=== PATIENT | male | born 1980 | race Caucasian/White ===

== ENCOUNTER 2016-06-27 05:29 | Emergency (ER) | payer OTHER, MEDICARE ==
[2016-06-27 06:19] LABS: ABSOLUTE BASOPHILS # (AUTO) 0.1 10^3/uL (0.0-0.2); ABSOLUTE LYMPHOCYTES (AUTO) 2.2 10^3/uL (0.5-4.7); ABSOLUTE MONOCYTES (AUTO) 0.9 10^3/uL (0.1-1.4); ABSOLUTE NEUT (AUTO) 7.2 10^3/uL (1.7-8.2); BASOPHILS % (AUTO) 0.6 % (0-2); EOSINOPHILS % (AUTO) 0.1 % (0-6); HEMATOCRIT 45.6 % (37.9-51.0); HEMOGLOBIN 14.8 g/dL (13.5-17.0); HGB HCT DIFFERENCE -1.2; MEAN CORPUSCULAR HEMOGLOBIN 26.7 pg (27.0-33.4); MEAN CORPUSCULAR HGB CONC 32.5 g/dL (32.0-36.0); MEAN CORPUSCULAR VOLUME 82 fl (80-97); MONOCYTES % (AUTO) 8.9 % (3-13); RED BLOOD COUNT 5.55 10^6/uL (4.35-5.55); RED CELL DISTRIBUTION WIDTH 18.3 % (11.5-14.0); SEGMENTED NEUTROPHILS % (AUTO) 69.4 % (42-78); WHITE BLOOD COUNT 10.4 10^3/uL (4.0-10.5)
[2016-06-27] MEDS ORDERED: NORMAL SALINE 1000 ML 1,000 ML IV ONE (06:19)
[2016-06-27] MEDS ORDERED: FAMOTIDINE INJ/PF 20 MG/2 ML SDV IV ONE (06:19)
[2016-06-27] MEDS ORDERED: ONDANSETRON HCL INJ/PF 4 MG/2 ML SDV IV ONE (06:19)
--- NOTE | 2016-06-27 06:23 | ER Document Report ---
ED GI/ - General Mode of Arrival: Ambulatory Information source: Patient TRAVEL OUTSIDE OF THE [place] IN LAST 30 DAYS: No - HPI Patient complains to provider of: Abdominal pain, Vomiting Onset: This morning - 1 hour ago Location: LUQ, RUQ Associated symptoms: Other - see above <SMALLWOODALAN SIMSUR - Last Filed: 06/27/16 06:55> <PAVAN GASTON - Last Filed: 06/27/16 09:19> - General Chief Complaint: Abdominal Pain Stated Complaint: VOMITING Notes: 35 year old male presents to the ED complaining of bilateral upper abdomen pain that started 1 hour ago while at the emergency vet's office. Patient states that he doesn't think his pain has anything to do with his pancreas, nor with his previous history of alcohol abuse. Patient states that he recently went 2 months without drinking, but relapsed 1 week ago. Patient is additionally complaining of nausea and vomiting, but denies diarrhea. Patient's dog had an ear infection and had to go to the emergency vet's office earlier this morning. Patient states his last drink was over 6 hours ago. (BRANDT SMALLWOOD) This chronic alcoholic patient claims he stopped drinking for 2 months and then restarted 2 weeks ago. He claims his last drink was 6 hours ago and he is certain his symptoms are not related to alcohol consumption. His alcohol level was 274, meaning if he did quit 6 hours ago, his level was close to 400 when he stopped drinking. He also states the pain he is feeling in his left upper abdomen is not the same pain as he gets with pancreatitis. (PAVAN GASTON) - Related Data Allergies/Adverse Reactions: No Known Allergies Allergy (Verified 06/27/16 06:04) Past Medical History - General Information source: Patient - Social History Smoking Status: Current Every Day Smoker Frequency of alcohol use: daily Drug Abuse: None Family History: Arthritis, DM, Hyperlipidemia, Hypertension, Malignancy, Other Patient has suicidal ideation: No Patient has homicidal ideation: No - Past Medical History Cardiac Medical History: Reports: Hx Coronary Artery Disease, Hx Heart Attack, Hx Hypercholesterolemia, Hx Hypertension Neurological Medical History: Reports: Hx Seizures Endocrine Medical History: Reports: Hx Diabetes Mellitus Type 2 GI Medical History: Reports: Hx Cirrhosis, Hx Gastritis, Hx Gastroesophageal Reflux Disease Musculoskeltal Medical History: Reports Hx Arthritis, Reports Hx Musculoskeletal Deformity, Reports Hx Musculoskeletal Trauma Psychiatric Medical History: Reports: Hx Depression, Hx Personality Disorder, Hx Post Traumatic Stress Disorder Traumatic Medical History: Reports: Hx Traumatic Brain Injury - x2, INJURED IN I.E.D. EXPLOSION Past Surgical History: Reports: Hx Appendectomy, Hx Orthopedic Surgery - R hip replacement d/t necrosis - Immunizations Immunizations up to date: No Hx Diphtheria, Pertussis, Tetanus Vaccination: Yes <BRANDT SMALLWOOD - Last Filed: 06/27/16 06:55> Review of Systems - Review of Systems Constitutional: No symptoms reported EENT: No symptoms reported Cardiovascular: No symptoms reported Respiratory: No symptoms reported Gastrointestinal: See HPI, Abdominal pain - bilateral upper, Nausea, Vomiting. denies: Diarrhea Genitourinary: No symptoms reported Male Genitourinary: No symptoms reported Musculoskeletal: No symptoms reported Skin: No symptoms reported Hematologic/Lymphatic: No symptoms reported Neurological/Psychological: No symptoms reported -: Yes All other systems reviewed and negative <BRANDT SMALLWOOD - Last Filed: 06/27/16 06:55> Physical Exam - General General appearance: Appears well, Other - actively vomiting In distress: None - HEENT Head: Normocephalic, Atraumatic Eyes: Normal Extraocular movements intact: Yes Pupils: PERRL - Respiratory Respiratory status: No respiratory distress Breath sounds: Normal - Cardiovascular Rhythm: Regular - Abdominal Inspection: Normal Distension: No distension Tenderness: Tender - RUQ and LUQ - Back Back: Normal - Extremities General upper extremity: Normal inspection, Normal ROM General lower extremity: Normal inspection, Normal ROM - Neurological Neuro grossly intact: Yes - Psychological Associated symptoms: Normal affect, Normal mood - Skin Skin Temperature: Warm Skin Moisture: Dry Skin Color: Normal <BRANDT SMALLWOOD - Last Filed: 06/27/16 06:55> <PAVAN GASTON - Last Filed: 06/27/16 09:19> - Vital signs Vitals: Temp Pulse Resp BP Pulse Ox 98.4 F 113 H 18 148/109 H 98 06/27/16 05:34 06/27/16 05:34 06/27/16 05:34 06/27/16 05:34 06/27/16 05:34 (BRANDT SMALLWOOD) (PAVAN GASTON) Course - Laboratory Result Diagrams: 06/27/16 06:10 06/27/16 06:10 <BRANDT SMALLWOOD - Last Filed: 06/27/16 06:55> - Laboratory Result Diagrams: 06/27/16 06:10 06/27/16 06:10 <PAVAN GASTON - Last Filed: 06/27/16 09:19> - Re-evaluation Re-evalutation: 06/27/16 08:19 The patient fell onto his left knee when he was getting out of his bed. He is complaining of pain to the knee and the hip. He claims he is scheduled to have surgery on that hip. He continues to deny that he has been drinking alcohol. I advised him that his Tylenol level was 274, he states that can't be true. Also advised him that I'm waiting on dilution from a lipase because it's going to be so high due to the drinking he has been doing. He is his usual obnoxious intoxicated self that we are so used to seeing here in this emergency room. He also has a friend with him now who is also trying to claim that he had not been drinking. 06/27/16 08:36 The nurse tells me the patient reported he is going to leave. He states he has better drugs at home he can take. This is a frequent result of his visits to the emergency room when he is intoxicated. He does have a sober friend with him to facilitate his return home. 06/27/16 09:18 The patient's lipase came back sometime after he had left the department. The lipase was just over 16,000. The nurse will call the patient to inform him that his lipase level is quite high and suggests that he does have pancreatitis. (PAVAN GASTON) - Vital Signs Vital signs: Temp Pulse Resp BP Pulse Ox 98.0 F 109 H 20 147/98 H 99 06/27/16 07:03 06/27/16 07:03 06/27/16 07:03 06/27/16 07:03 06/27/16 07:03 (BRANDT SMALLWOOD) (PAVAN GASTON) - Laboratory Laboratory results interpreted by me: 06/27/16 06/27/16 06/27/16 06:00 06:10 06:10 MCH 26.7 L RDW 18.3 H Chloride 94 L Anion Gap 20 H Glucose 307 H POC Glucose 279 H Alkaline Phosphatase 133 H Lipase 70954.0 H (PAVAN GASTON) Discharge <BRANDT SMALLWOOD - Last Filed: 06/27/16 06:55> <PAVAN GASTON - Last Filed: 06/27/16 09:19> - Discharge Clinical Impression: Acute alcohol intoxication with alcoholism Qualifiers: Complication of substance-induced condition: uncomplicated Qualified Code(s): F10.220 - Alcohol dependence with intoxication, uncomplicated Abdominal pain Qualifiers: Abdominal location: left lower quadrant Qualified Code(s): R10.32 - Left lower quadrant pain Nausea and vomiting Qualifiers: Vomiting type: unspecified Vomiting Intractability: non-intractable Qualified Code(s): R11.2 - Nausea with vomiting, unspecified Hyperglycemia due to type 2 diabetes mellitus Qualifiers: Diabetes mellitus alf insulin use: without long term care administrator use Qualified Code(s ): E11.65 - Type 2 diabetes mellitus with hyperglycemia Pancreatitis, alcoholic, acute Qualifiers: Acute pancreatitis complication: unspecified Qualified Code(s): K85.20 - Alcohol induced acute pancreatitis without necrosis or infection Condition: Fair Disposition: ELOPED Scribe Attestation: 06/27/16 08:40 I personally performed the services described in the documentation, reviewed and edited the documentation which was dictated to the scribe in my presence, and it accurately records my words and actions. (PAVAN GASTON) Scribe Documentation - Scribe Written by Laila:: Laila Garcia, 06/27/2016 06:32 acting as scribe for :: Gypsy <BRANDT SMALLWOOD - Last Filed: 06/27/16 06:55>
[2016-06-27 06:38] LABS: ALANINE AMINOTRANSFERASE 42 U/L (21-72); ALBUMIN 4.7 g/dL (3.5-5.0); ALCOHOL 274 mg/dL (NONE DETECTED); ALKALINE PHOSPHATASE 133 U/L (38-126); ASPARTATE AMINO TRANSFERASE 29 U/L (17-59); BILIRUBIN,TOTAL 0.4 mg/dL (0.2-1.3); BLOOD UREA NITROGEN 7 mg/dL (7-20); CALCIUM 9.6 mg/dL (8.4-10.2); CARBON DIOXIDE 28 mmol/L (22-30); CHLORIDE 94 mmol/L (98-107); CREATININE RESULT 0.89 mg/dL (0.52-1.25); GLUCOSE 307 mg/dL (75-110); POTASSIUM 3.7 mmol/L (3.6-5.0); SODIUM 141.9 mmol/L (137-145); TOTAL PROTEIN 7.1 g/dL (6.3-8.2)
[2016-06-27 07:06] VITALS: BP 147/98
[2016-06-27 07:36] LABS: ANION GAP 20 (5-19)
[2016-06-27] MEDS ORDERED: RINGERS SOLUTION,LACTATED 1,000 ML IV ONE (07:53)
[2016-06-27] MEDS ORDERED: TRAMADOL HCL 50 MG TABLET PO ONE (08:24)
== END 2016-06-27 08:36 | disposition left against medical advice (07) ==
LOC: ER 05:29
DX: K85.20 Alcohol induced acute pancreatitis without necrosis or infection (principal); F10.220 Alcohol dependence with intoxication, uncomplicated; Y90.8 Blood alcohol level of 240 mg/100 ml or more; M25.569 Pain in unspecified knee; M25.559 Pain in unspecified hip; W06.XXXA Fall from bed, initial encounter; Y92.238 Other place in hospital as the place of occurrence of the external cause; R10.32 Left lower quadrant pain; R11.2 Nausea with vomiting, unspecified; E11.65 Type 2 diabetes mellitus with hyperglycemia; R10.11 Right upper quadrant pain; R10.12 Left upper quadrant pain; F17.200 Nicotine dependence, unspecified, uncomplicated; I25.10 Atherosclerotic heart disease of native coronary artery without angina pectoris; I25.2 Old myocardial infarction; I10 Essential (primary) hypertension; Z90.49 Acquired absence of other specified parts of digestive tract
CPT/HCPCS: 99281; 96361; 96374; 96375; 36415; 82962; 80307; 83690; 85025; 80053; J2405; J7030; J7120; S0028

== ENCOUNTER 2016-08-28 20:58 | Emergency (ER) | payer OTHER, MEDICARE ==
[2016-08-28] MEDS ORDERED: NORMAL SALINE 1000 ML 2,000 ML IV ONE (21:08)
[2016-08-28 21:30] LABS: ABSOLUTE BASOPHILS # (AUTO) 0.1 10^3/uL (0.0-0.2); ABSOLUTE LYMPHOCYTES (AUTO) 3.1 10^3/uL (0.5-4.7); ABSOLUTE MONOCYTES (AUTO) 0.2 10^3/uL (0.1-1.4); ABSOLUTE NEUT (AUTO) 5.9 10^3/uL (1.7-8.2); EOSINOPHILS % (AUTO) 0.1 % (0-6); HEMATOCRIT 48.5 % (37.9-51.0); HEMOGLOBIN 16.3 g/dL (13.5-17.0); HGB HCT DIFFERENCE 0.4; LYMPHOCYTES % (AUTO) 33.2 % (13-45); MEAN CORPUSCULAR HEMOGLOBIN 27.9 pg (27.0-33.4); MEAN CORPUSCULAR HGB CONC 33.5 g/dL (32.0-36.0); MEAN CORPUSCULAR VOLUME 83 fl (80-97); MONOCYTES % (AUTO) 2.6 % (3-13); RED BLOOD COUNT 5.83 10^6/uL (4.35-5.55); RED CELL DISTRIBUTION WIDTH 14.6 % (11.5-14.0); SEGMENTED NEUTROPHILS % (AUTO) 63.1 % (42-78); WHITE BLOOD COUNT 9.4 10^3/uL (4.0-10.5)
[2016-08-28 21:35] LABS: VENOUS BLOOD BASE EXCESS -5.5 mmol/L; VENOUS BLOOD HCO3 19.2 mmol/L (20-32); VENOUS BLOOD PCO2 35.5 mmHg (35-63); VENOUS BLOOD PH 7.35 (7.30-7.42)
--- NOTE | 2016-08-28 21:38 | ER Document Report ---
ED General - General Chief Complaint: ETOH Abuse Stated Complaint: ETOH ABUSE Cannot obtain history due to: Intoxicated Notes: Patient is a 35-year-old male well-known to this emergency department who presents with alcohol intoxication. Patient arrives by EMS screaming, agitated and is at his baseline level of intoxication. He is unable to provide any meaningful history TRAVEL OUTSIDE OF THE [place] IN LAST 30 DAYS: No - Related Data Allergies/Adverse Reactions: No Known Allergies Allergy (Verified 06/27/16 06:04) Past Medical History - General Information source: Emergency Med Personnel - Social History Smoking Status: Current Every Day Smoker Frequency of alcohol use: Heavy Drug Abuse: None Family History: Arthritis, DM, Hyperlipidemia, Hypertension, Malignancy, Other - Past Medical History Cardiac Medical History: Reports: Hx Coronary Artery Disease, Hx Heart Attack, Hx Hypercholesterolemia, Hx Hypertension Neurological Medical History: Reports: Hx Seizures Endocrine Medical History: Reports: Hx Diabetes Mellitus Type 2 Renal/ Medical History: Denies: Hx Peritoneal Dialysis GI Medical History: Reports: Hx Cirrhosis, Hx Gastritis, Hx Gastroesophageal Reflux Disease Musculoskeltal Medical History: Reports Hx Arthritis, Reports Hx Musculoskeletal Deformity, Reports Hx Musculoskeletal Trauma Psychiatric Medical History: Reports: Hx Depression, Hx Personality Disorder, Hx Post Traumatic Stress Disorder Traumatic Medical History: Reports: Hx Traumatic Brain Injury - x2, INJURED IN I.E.D. EXPLOSION Past Surgical History: Reports: Hx Appendectomy, Hx Orthopedic Surgery - R hip replacement d/t necrosis - Immunizations Immunizations up to date: No Hx Diphtheria, Pertussis, Tetanus Vaccination: Yes Review of Systems - Review of Systems -: Yes ROS unobtainable due to patient's medical condition Physical Exam - Vital signs Vitals: Resp Pulse Ox 26 H 95 08/28/16 21:04 08/28/16 21:04 Interpretation: Tachycardic, Tachypneic Notes: PHYSICAL EXAMINATION: GENERAL: Agitated, combative, disheveled HEAD: Atraumatic, normocephalic. EYES: Pupils equal round and reactive to light, extraocular movements intact, sclera anicteric, conjunctiva are normal. ENT: nares patent, oropharynx clear without exudates. Moderately dry mucous membranes. NECK: Normal range of motion, supple without lymphadenopathy LUNGS: Breath sounds clear to auscultation bilaterally and equal. No wheezes rales or rhonchi. HEART: Regular tachycardia without murmurs ABDOMEN: Soft, nontender, normoactive bowel sounds. No guarding, no rebound. No masses appreciated. EXTREMITIES: Normal range of motion, no pitting or edema. No cyanosis. NEUROLOGICAL: No focal neurological deficits. Moves all extremities spontaneously and on command. PSYCH: Agitated, intoxicated SKIN: Warm, Dry, normal turgor, no rashes or lesions noted. Course - Re-evaluation Re-evalutation: 08/28/16 21:35 Patient presents intoxicated, agitated, difficult to ascertain history secondary to him mostly just screaming saying "it hurt so bad it hurts". He will not clarify for me what hurts. He smells strongly of alcohol. This is very similar to patient's multitude of presentations to this emergency department although he has not been here recently. Initial physical exam shows the patient does not have any focal neurologic deficits, does seem to have some epigastric and right upper quadrant abdominal tenderness on palpation which may be related to his acute on chronic pancreatitis from chronic alcohol abuse. Patient is a type I diabetic and frequent he presents in DKA with these presentations so will obtain laboratories and provide IV fluids. If laboratories do not showed evidence of DKA he will be discharged. 08/28/16 23:19 Venous blood gas has returned and is normal without evidence of acidosis. Patient therefore does not have diabetic ketoacidosis. The remainder of his laboratories are still pending and agitated. He is demanding to be discharged. He is critically sober enough to make this decision at this time. This is very similar to his prior presentations he often becomes agitated when he is denied opiate pain medications. He will be discharged against medical advice as we do not have the remainder of his laboratories at this time. Vitals are wnl at this time. - Vital Signs Vital signs: Temp Pulse Resp BP Pulse Ox 17 135/92 H 97 08/28/16 23:01 08/28/16 23:01 08/28/16 23:01 - Laboratory Result Diagrams: 08/28/16 21:15 08/28/16 22:55 Laboratory results interpreted by me: 08/28/16 08/28/16 08/28/16 21:15 21:28 22:55 RBC 5.83 H RDW 14.6 H Monocytes % 2.6 L VBG HCO3 19.2 L Sodium 149.1 H Chloride 111 H Carbon Dioxide 15 L Anion Gap 23 H Glucose 254 H Alkaline Phosphatase 130 H Serum Alcohol 316 H* Discharge - Discharge Clinical Impression: Acute alcohol intoxication with alcoholism Qualifiers: Complication of substance-induced condition: uncomplicated Qualified Code(s): F10.220 - Alcohol dependence with intoxication, uncomplicated Condition: Stable Disposition: AGAINST MEDICAL ADVICE Additional Instructions: You decided to leave AGAINST MEDICAL ADVICE today. We were not able to complete all of your laboratories and have not been able to exclude that you could have a serious condition at this time. You were seen in the emergency department today for being drunk. Being seen in the emergency department after drinking alcohol is a serious indicator that you have a problem with alcohol. You should seek help with the attached resources for your problem drinking. Please return to the emergency room immediately if you experience any concerning symptoms including high fevers, severe headache, chest pain, difficulty breathing, abdominal pain, slurred speech, numbness or weakness in your arms or legs, or any other symptom that concerns you.
[2016-08-28 23:28] LABS: ALANINE AMINOTRANSFERASE 26 U/L (21-72); ALBUMIN 4.3 g/dL (3.5-5.0); ALKALINE PHOSPHATASE 130 U/L (38-126); ASPARTATE AMINO TRANSFERASE 21 U/L (17-59); BILIRUBIN,DIRECT 0.2 mg/dL (0.0-0.4); BILIRUBIN,TOTAL 0.3 mg/dL (0.2-1.3); BLOOD UREA NITROGEN 13 mg/dL (7-20); CREATININE RESULT 0.87 mg/dL (0.52-1.25); GLUCOSE 254 mg/dL (75-110); LIPASE 30.2 U/L (23-300); TOTAL PROTEIN 6.8 g/dL (6.3-8.2)
[2016-08-28 23:33] VITALS: BP 135/92
[2016-08-28 23:40] LABS: CARBON DIOXIDE 15 mmol/L (22-30); CHLORIDE 111 mmol/L (98-107); POTASSIUM 4.5 mmol/L (3.6-5.0); SODIUM 149.1 mmol/L (137-145)
[2016-08-28 23:47] LABS: ALCOHOL 316 mg/dL (NONE DETECTED)
[2016-08-28 23:48] LABS: ANION GAP 23 (5-19)
== END 2016-08-28 23:27 | disposition left against medical advice (07) ==
LOC: ER 20:58
DX: F10.220 Alcohol dependence with intoxication, uncomplicated (principal); K85.20 Alcohol induced acute pancreatitis without necrosis or infection; K86.0 Alcohol-induced chronic pancreatitis; R10.816 Epigastric abdominal tenderness; R10.811 Right upper quadrant abdominal tenderness; R06.82 Tachypnea, not elsewhere classified; R00.0 Tachycardia, unspecified; F17.200 Nicotine dependence, unspecified, uncomplicated; I25.10 Atherosclerotic heart disease of native coronary artery without angina pectoris; I25.2 Old myocardial infarction; I10 Essential (primary) hypertension; E10.9 Type 1 diabetes mellitus without complications
CPT/HCPCS: 99284; 96360; 96361; 36415; 80307; 83690; 85025; 80053; 82803; J7030

== ENCOUNTER 2016-08-29 20:24 | Inpatient (IN) | payer OTHER, MEDICARE ==
[2016-08-29] MEDS ORDERED: RINGERS SOLUTION,LACTATED 1,000 ML IV PRN (20:42)
[2016-08-29 22:27] LABS: ABSOLUTE BASOPHILS # (AUTO) 0.1 10^3/uL (0.0-0.2); ABSOLUTE LYMPHOCYTES (AUTO) 3.5 10^3/uL (0.5-4.7); ABSOLUTE MONOCYTES (AUTO) 0.6 10^3/uL (0.1-1.4); ABSOLUTE NEUT (AUTO) 12.5 10^3/uL (1.7-8.2); BASOPHILS % (AUTO) 0.7 % (0-2); HEMOGLOBIN 14.7 g/dL (13.5-17.0); HGB HCT DIFFERENCE 0.1; LYMPHOCYTES % (AUTO) 20.9 % (13-45); MEAN CORPUSCULAR HEMOGLOBIN 27.6 pg (27.0-33.4); MEAN CORPUSCULAR HGB CONC 33.4 g/dL (32.0-36.0); MEAN CORPUSCULAR VOLUME 83 fl (80-97); MONOCYTES % (AUTO) 3.4 % (3-13); RED BLOOD COUNT 5.32 10^6/uL (4.35-5.55); RED CELL DISTRIBUTION WIDTH 14.4 % (11.5-14.0); WHITE BLOOD COUNT 16.7 10^3/uL (4.0-10.5)
[2016-08-29 22:32] LABS: VENOUS BLOOD BASE EXCESS -6.9 mmol/L; VENOUS BLOOD HCO3 16.6 mmol/L (20-32); VENOUS BLOOD PCO2 28.9 mmHg (35-63); VENOUS BLOOD PH 7.38 (7.30-7.42)
[2016-08-29] MEDS ORDERED: PROMETHAZINE HCL INJ 25 MG/1 ML VIAL IM ONE (22:50)
[2016-08-29 22:53] LABS: BILIRUBIN,DIRECT 0.4 mg/dL (0.0-0.4); BILIRUBIN,TOTAL 0.7 mg/dL (0.2-1.3); CALCIUM 10.3 mg/dL (8.4-10.2); CREATINE KINASE 163 U/L (55-170); CREATININE RESULT 0.95 mg/dL (0.52-1.25); GLUCOSE 285 mg/dL (75-110); LIPASE 30.9 U/L (23-300)
[2016-08-29] MEDS ORDERED: PROMETHAZINE HCL INJ 25 MG/1 ML VIAL ONE (22:54)
[2016-08-29 23:02] LABS: CREATINE KINASE MB 0.53 ng/mL (<4.55)
[2016-08-29 23:06] LABS: TROPONIN I < 0.012 ng/mL
[2016-08-29 23:07] LABS: CARBON DIOXIDE 14 mmol/L (22-30); CHLORIDE 99 mmol/L (98-107); SODIUM 145.1 mmol/L (137-145)
[2016-08-29 23:10] LABS: ANION GAP 32 (5-19)
[2016-08-29 23:12] LABS: ALBUMIN 5.3 g/dL (3.5-5.0); TOTAL PROTEIN 8.4 g/dL (6.3-8.2)
--- NOTE | 2016-08-29 23:12 | ER Document Report ---
ED General - General Chief Complaint: Pain All Over Stated Complaint: ABDOMINAL PAIN Mode of Arrival: Ambulatory Information source: Patient Notes: This is a 35-year-old male with a history of chronic alcoholism and diabetes who returns to the emergency department presenting with "pain all over". Patient is well-known to this ER with multiple prior visits with similar complaints. He was seen yesterday in this ER for alcohol intoxication and left AMA after he was denied narcotic pain medications. Tonight he returns with complaint of pain all over specifically in his abdomen and lower chest. He states that he has been drinking today. TRAVEL OUTSIDE OF THE [place] IN LAST 30 DAYS: No - Related Data Allergies/Adverse Reactions: No Known Allergies Allergy (Verified 06/27/16 06:04) Past Medical History - General Information source: Patient, [facility] Records - Social History Smoking Status: Current Every Day Smoker Frequency of alcohol use: Heavy Drug Abuse: None Family History: Arthritis, DM, Hyperlipidemia, Hypertension, Malignancy, Other - Past Medical History Cardiac Medical History: Reports: Hx Coronary Artery Disease, Hx Heart Attack, Hx Hypercholesterolemia, Hx Hypertension Neurological Medical History: Reports: Hx Seizures Endocrine Medical History: Reports: Hx Diabetes Mellitus Type 2 Renal/ Medical History: Denies: Hx Peritoneal Dialysis GI Medical History: Reports: Hx Cirrhosis, Hx Gastritis, Hx Gastroesophageal Reflux Disease Musculoskeltal Medical History: Reports Hx Arthritis, Reports Hx Musculoskeletal Deformity, Reports Hx Musculoskeletal Trauma Psychiatric Medical History: Reports: Hx Depression, Hx Personality Disorder, Hx Post Traumatic Stress Disorder Traumatic Medical History: Reports: Hx Traumatic Brain Injury - x2, INJURED IN I.E.D. EXPLOSION Past Surgical History: Reports: Hx Appendectomy, Hx Orthopedic Surgery - R hip replacement d/t necrosis - Immunizations Immunizations up to date: No Hx Diphtheria, Pertussis, Tetanus Vaccination: Yes Review of Systems - Review of Systems Constitutional: denies: Chills, Fever EENT: No symptoms reported Cardiovascular: Chest pain. denies: Palpitations, Syncope, Dizziness Respiratory: No symptoms reported. denies: Cough, Hurts to breathe, Short of breath Gastrointestinal: See HPI Genitourinary: No symptoms reported Musculoskeletal: No symptoms reported Skin: No symptoms reported Neurological/Psychological: Anxiety Physical Exam - Vital signs Vitals: Temp Pulse Resp BP Pulse Ox 98.2 F 122 H 22 H 156/96 H 99 08/29/16 20:30 08/29/16 20:30 08/29/16 20:30 08/29/16 20:30 08/29/16 20:30 - Notes Notes: PHYSICAL EXAMINATION: GENERAL: Ill-appearing, anxious affect, frequent vomiting, +ETOH, cooperative with interview. HEAD: Atraumatic, normocephalic. EYES: Pupils equal round and reactive to light, extraocular movements intact, sclera anicteric, conjunctiva are normal. ENT: nares patent, oropharynx clear without exudates. Mucous membranes somewhat dry NECK: Normal range of motion, supple without lymphadenopathy LUNGS: Breath sounds clear to auscultation bilaterally and equal. No wheezes rales or rhonchi. HEART: Tachycardic rate and regular rhythm without murmurs ABDOMEN: Soft, mild diffuse tenderness to palpation, normoactive bowel sounds. No guarding, no rebound. No masses appreciated. EXTREMITIES: Normal range of motion. NEUROLOGICAL: Cranial nerves grossly intact. Normal speech, normal gait. No gross focal motor or sensory deficits appreciated PSYCH: Anxious affect, upset. SKIN: Warm, Dry, normal turgor, no rashes or lesions noted. Course - Re-evaluation Re-evalutation: 08/30/16 02:12 Patient with persistent vomiting despite Phenergan and Ativan. IV access was difficult was therefore delayed for now will begin IV fluid resuscitation. Laboratory review demonstrates leukocytosis and metabolic acidosis consistent with intractable nausea and vomiting. Will consult with the hospitalist for admission for IV fluids. D/W Dr. Pittman, admit to TELE - Vital Signs Vital signs: Temp Pulse Resp BP Pulse Ox 98.2 F 122 H 53 H 178/77 H 99 08/29/16 20:30 08/29/16 20:30 08/29/16 21:01 08/29/16 21:01 08/29/16 21:01 - Laboratory Result Diagrams: 08/29/16 22:08 08/29/16 22:08 Laboratory results interpreted by me: 08/29/16 08/29/16 08/29/16 22:08 22:08 22:08 WBC 16.7 H RDW 14.4 H Absolute Neutrophils 12.5 H VBG pCO2 28.9 L VBG HCO3 16.6 L Sodium 145.1 H Carbon Dioxide 14 L Anion Gap 32 H Glucose 285 H Calcium 10.3 H Alkaline Phosphatase 184 H Total Protein 8.4 H Albumin 5.3 H Discharge - Discharge Clinical Impression: Metabolic acidosis Intractable nausea and vomiting Qualifiers: Vomiting type: unspecified Qualified Code(s): R11.2 - Nausea with vomiting, unspecified Alcohol intoxication Qualifiers: Complication of substance-induced condition: with unspecified complication Qualified Code(s): F10.129 - Alcohol abuse with intoxication, unspecified Condition: Fair Disposition: ADMITTED OBSERVATION Admitting Provider: Hospitalist - Dr. Pittman Unit Admitted: Telemetry
[2016-08-29 23:13] LABS: ALANINE AMINOTRANSFERASE 26 U/L (21-72); ALKALINE PHOSPHATASE 184 U/L (38-126); ASPARTATE AMINO TRANSFERASE 42 U/L (17-59); BLOOD UREA NITROGEN 11 mg/dL (7-20)
--- NOTE | 2016-08-30 00:10 | EKG REPORT ---
SEVERITY:- ABNORMAL ECG - SINUS TACHYCARDIA NONSPECIFIC INTRAVENTRICULAR CONDUCTION DELAY INFERIOR INFARCT, OLD : Confirmed by: Sonu Ken 30-Aug-2016 00:10:12
[2016-08-30] MEDS ORDERED: LORAZEPAM INJ 2 MG/1 ML VIAL IM ONE (00:16)
[2016-08-30] MEDS ORDERED: PANTOPRAZOLE SODIUM 40 MG VIAL IV ONE (01:14)
[2016-08-30] MEDS ORDERED: GLUCAGON,HUMAN RECOMB 1 MG INJ IM PRN (01:30)
[2016-08-30] MEDS ORDERED: IPRATROPIUM/ALBUTEROL 0.5-2.5 MG/3 ML AMPUL NEB PRN (01:30)
[2016-08-30] MEDS ORDERED: DEXTROSE 50%-WATER 25 GM/50 ML DISP.SYRIN IV PRN ×2 (01:30)
[2016-08-30] MEDS ORDERED: ACETAMINOPHEN 650 MG SUPP.RECT PR PRN (01:30)
[2016-08-30] MEDS ORDERED: INSULIN REG, HUMAN 100 UNIT/ML 3 ML VIAL (PYX) IV ONE (01:30)
[2016-08-30] MEDS ORDERED: MAGNESIUM HYDROXIDE SUSP 30 ML UDCUP PO PRN (01:30)
[2016-08-30] MEDS ORDERED: INSULIN LISPRO 100 UNIT/ML 3 ML VIAL SUBCUT PRN (01:30)
[2016-08-30] MEDS ORDERED: PROMETHAZINE HCL 25 MG SUPP.RECT PR PRN (01:30)
[2016-08-30] MEDS ORDERED: DEXTROSE 40% GEL 15 GM TUBE PO PRN ×2 (01:30)
[2016-08-30] MEDS ORDERED: OLANZAPINE INJ/PF 10 MG SDV IM ONE (01:33)
[2016-08-30] MEDS ORDERED: THIAMINE HCL 100 MG, FOLIC ACID 1 MG in NORMAL SALINE 50 ML IV ONE (01:45)
[2016-08-30] MEDS ORDERED: LORAZEPAM INJ 2 MG/1 ML VIAL IV ONE (01:54)
[2016-08-30] MEDS ORDERED: THIAMINE HCL INJ 200 MG/2 ML VIAL ONE (01:59)
[2016-08-30] MEDS ORDERED: LORAZEPAM INJ 2 MG/1 ML VIAL ONE (02:00)
[2016-08-30] MEDS: NORMAL SALINE 1000 ML 1,000 ML IV SCH ×2 (02:19→02:34)
[2016-08-30 02:42] LABS: BLOOD UREA NITROGEN 14 mg/dL (7-20); CALCIUM 9.8 mg/dL (8.4-10.2); CARBON DIOXIDE 13 mmol/L (22-30); CHLORIDE 97 mmol/L (98-107); CREATININE RESULT 1.13 mg/dL (0.52-1.25); GLUCOSE 298 mg/dL (75-110)
[2016-08-30 03:00] LABS: POTASSIUM 3.9 mmol/L (3.6-5.0); SODIUM 144.9 mmol/L (137-145)
[2016-08-30 03:05] LABS: ANION GAP 35 (5-19)
[2016-08-30] MEDS ORDERED: LIDOCAINE 1% INJ-PF (10 MG/ML) 30 ML SDV ONE ×2 (03:56→05:38)
--- NOTE | 2016-08-30 06:19 | PDOC H&P ---
History of Present Illness Admission Date/PCP: 08/30/16 02:17 Patient complains of: Abdominal pain and nausea History of Present Illness: BREE FISHMAN is a 35 year old male with a past medical history of posttraumatic stress disorder, traumatic brain injury, depression, anxiety, opiate and benzodiazepine seeking behavior and intermittent alcohol binging complicated by diabetes and recurrent diabetic ketoacidosis. Patient admits noncompliance with lifestyle and medication and presents with alcohol intoxication and severe metabolic acidosis he started on IV fluids IV insulin referred to the hospitalist for admission. Past Medical History Cardiac Medical History: Reports: Coronary Artery Disease, Myocardial Infarction , Hyperlipidema, Hypertension Neurological Medical History: Reports: Seizures Endocrine Medical History: Reports: Diabetes Mellitus Type 2 GI Medical History: Reports: Cirrhosis, Gastroesophageal Reflux Disease Musculoskeltal Medical History: Reports: Arthritis Psychiatric Medical History: Reports: Alcohol Dependency, Depression, Personality Disorder, Post Traumatic Stress Disorder Traumatic Medical History: Reports: Traumatic Brain Injury - x2, INJURED IN I.E.D. EXPLOSION Past Surgical History Past Surgical History: Reports: Appendectomy, Orthopedic Surgery - R hip replacement d/t necrosis Social History Smoking Status: Current Every Day Smoker Frequency of Alcohol Use: Heavy Hx Recreational Drug Use: Yes Drugs: None Hx Prescription Drug Abuse: Yes - Advance Directive Resuscitation Status: Full Code Family History Family History: Arthritis, DM, Hyperlipidemia, Hypertension, Malignancy, Other Parental Family History Reviewed: Yes Children Family History Reviewed: Yes Sibling(s) Family History Reviewed.: Yes Medication/Allergy Home Medications: Thiamine Mononitrate [Vitamin B-1] 100 mg PO DAILY 11/13/14 Promethazine HCl [Phenergan 25 mg Tablet] 1 - 2 tab PO Q6H PRN #15 tablet Levetiracetam [Keppra 500 mg Tablet] 500 mg PO BID 06/01/15 Gabapentin [Neurontin 300 mg Capsule] 1 tab PO TID 09/07/15 Quetiapine Fumarate [Seroquel 100 mg Tablet] 300 mg PO QHS 09/07/15 Carbamazepine 600 mg PO QHS 01/13/16 Levothyroxine Sodium [Synthroid 0.05 mg Tablet] 50 mcg PO QAM 01/13/16 Multivitamin [Multivitamins] 1 tab PO DAILY 01/13/16 Amlodipine/Atorvastatin [Amlodipine-Atorvast 5-10 mg] 5 mg PO DAILY 02/23/16 Diclofenac Sodium [Solaraze] 4 gm TOP DAILY 02/23/16 Lamotrigine [Lamictal Xr] 50 mg PO DAILY 02/23/16 Lisinopril 40 mg PO DAILY 02/23/16 Pantoprazole Sodium 40 mg PO DAILY 02/23/16 Sertraline HCl 200 mg PO DAILY 02/23/16 Insulin Glargine,Hum.rec.anlog [Lantus Insulin 100 Unit/mL] 25 unit SUBCUT Q12 # 1 insuln.pen 02/26/16 Insulin Lispro [Humalog Insulin (Lispro) 100 unit/mL] 0 - 12 unit SUBCUT ACHSP PRN #1 pe 02/26/16 Insulin Lispro [Humalog Insulin (Lispro) 100 unit/mL] 6 unit SUBCUT AC #1 pe Chlordiazepoxide HCl [Librium 25 mg Capsule] 1 cap PO ASDIR PRN #25 capsule 08/13 Prochlorperazine Maleate [Compazine 10 mg Tablet] 10 mg PO ASDIR PRN #20 tablet 03/28/16 Promethazine HCl [Phenergan 25 mg Tablet] 1 - 2 tab PO Q6H PRN #15 tablet Sucralfate [Carafate 1 gm Tablet] 1 gm PO ACHS #120 tablet 03/28/16 Allergies/Adverse Reactions: No Known Allergies Allergy (Verified 06/27/16 06:04) Review of Systems Constitutional: PRESENT: as per HPI, anorexia, fatigue, weakness. ABSENT: chills, fever(s), night sweats Eyes: ABSENT: visual disturbances Ears: ABSENT: hearing changes Cardiovascular: ABSENT: chest pain, dyspnea on exertion, edema, orthropnea, palpitations Respiratory: ABSENT: cough, hemoptysis Gastrointestinal: PRESENT: abdominal pain, bloating, nausea, vomiting. ABSENT: constipation, diarrhea, hematemesis, hematochezia Genitourinary: ABSENT: dysuria, hematuria Musculoskeletal: ABSENT: joint swelling Integumentary: ABSENT: rash, wounds Neurological: ABSENT: abnormal gait, abnormal speech, confusion, dizziness, focal weakness, syncope Psychiatric: PRESENT: as per HPI, anxiety, depression. ABSENT: homidical ideation, suicidal ideation Endocrine: PRESENT: polydipsia, polyphagia, polyuria. ABSENT: cold intolerance , heat intolerance Hematologic/Lymphatic: ABSENT: easy bleeding, easy bruising Physical Exam Vital Signs: Temp Pulse Resp BP Pulse Ox 98.2 F 122 H 19 123/78 98 08/29/16 20:30 08/29/16 20:30 08/30/16 05:01 08/30/16 05:01 08/30/16 04:01 Intake & Output 08/28/16 08/29/16 08/30/16 11:59 11:59 11:59 Weight 90.7 kg General appearance: PRESENT: disheveled, mild distress Head exam: PRESENT: atraumatic, normocephalic Eye exam: PRESENT: conjunctiva pink, EOMI, PERRLA. ABSENT: scleral icterus Ear exam: PRESENT: normal external ear exam Mouth exam: PRESENT: dry mucosa, tongue midline Neck exam: ABSENT: carotid bruit, JVD, lymphadenopathy, thyromegaly Respiratory exam: PRESENT: clear to auscultation elena. ABSENT: rales, rhonchi, wheezes Cardiovascular exam: PRESENT: RRR. ABSENT: diastolic murmur, rubs, systolic murmur Pulses: PRESENT: normal carotid pulses Vascular exam: PRESENT: normal capillary refill GI/Abdominal exam: PRESENT: hypoactive bowel sounds, soft, tenderness. ABSENT: distended, firm, guarding, hernia, hyperactive bowel sounds, Washburn's sign, normal bowel sounds, organolmegaly, rebound, rigid Rectal exam: PRESENT: deferred Extremities exam: PRESENT: full ROM. ABSENT: calf tenderness, clubbing, pedal edema Neurological exam: PRESENT: alert, awake, oriented to person, oriented to place , oriented to time, oriented to situation, CN II-XII grossly intact. ABSENT: motor sensory deficit Psychiatric exam: PRESENT: agitated, anxious Skin exam: PRESENT: dry, intact, warm. ABSENT: cyanosis, rash Results Impressions: Chest X-Ray 08/30/16 00:00 IMPRESSION: No acute radiographic finding in the chest. Malpositioned, kinked left IJ central line coursing to the left of the thoracic spine. Assessment & Plan - Diagnosis (1) DKA (diabetic ketoacidoses) Qualifiers: Diabetes mellitus type: type 1 Is this a current diagnosis for this admission?: YesPlan: Secondary to noncompliance history admitted to the [facility] for IV insulin IV fluids electrolyte repletion guided by serial chemistry and diabetic education (2) Intractable nausea and vomiting Qualifiers: Vomiting type: unspecified Qualified Code(s): R11.2 - Nausea with vomiting, unspecified Is this a current diagnosis for this admission?: YesPlan: Symptomatically management (3) Acute alcohol intoxication with alcoholism Qualifiers: Complication of substance-induced condition: uncomplicated Qualified Code(s): F10.220 - Alcohol dependence with intoxication, uncomplicated Plan: Thiamine folate when necessary Ativan (4) PTSD (post-traumatic stress disorder) Is this a current diagnosis for this admission?: YesPlan: Outpatient medication regiment with caution given history of opiate, benzodiazepine seeking behavior - Time Time Spent: 50 to 70 Minutes - Inpatient Certification Medical Necessity: Need Close Monitoring Due to Risk of Patient Decompensation
[2016-08-30] MEDS ORDERED: POTASSI CL 20 MEQ/D5-1/2NS 1L 1,000 ML IV SCH (07:00)
--- NOTE | 2016-08-30 07:19 | OPERATIVE REPORT E ---
Operative Report NAME: BREE FISHMAN : 1980 AGE: 35Y DATE OF SURGERY: 08/30/2016 ROOM: ED18 PREOPERATIVE DIAGNOSIS: Malposition, left internal jugular triple-lumen catheter. POSTOPERATIVE DIAGNOSIS: Malposition, left internal jugular triple-lumen catheter. OPERATION: Repositioning of left internal jugular triple-lumen catheter. SURGEON: NATTY PHELPS M.D. ANESTHESIA: Local with 1% Xylocaine. INDICATION: This is a 35-year-old male who had a left internal jugular vein triple-lumen catheter just inserted. X-ray, however, showed the catheter appears to be going down into the intercostal vein with low kinking. PROCEDURE: The patient was placed in Trendelenburg position and the left neck and triple-lumen catheter prepped and draped in usual sterile fashion. The suture was cut and a guidewire passed through the triple-lumen catheter and triple-lumen catheter was subsequently removed. Next, a new triple-lumen catheter was then inserted through the guidewire into the area of the superior vena cava. The catheter was able to be flushed and aspirated in all three ports. Local anesthesia was again infiltrated at the insertion site and a 3-0 silk suture was used to anchor the catheter on the skin. An antibiotic patch was then placed over the puncture site and a transparent sterile dressing was then placed over the triple-lumen catheter. The patient tolerated the procedure well. A chest x-ray will be done for placement. DICTATING PHYSICIAN: NATTY PHELPS M.D. [id number] PHY#: [id number] ID: [id number] JOB#: [id number] ACCT: [id number] cc:NATTY PHELPS M.D. > MTDD
[2016-08-30] MEDS ORDERED: NORMAL SALINE 1000 ML 1,000 ML IV PRN (07:46)
[2016-08-30] MEDS ORDERED: NORMAL SALINE 100 ML with INSULIN REGULAR, HUMAN 100 UNIT IV PRN ×2 (07:47)
[2016-08-30 07:48] LABS: APPEARANCE,URINE CLEAR; BILIRUBIN,URINE NEGATIVE (NEGATIVE); GLUCOSE, URINE >=500 mg/dL (NEGATIVE); KETONES,URINE 20 mg/dL (NEGATIVE); LEUKOCYTE ESTERASE,URINE NEGATIVE (NEGATIVE); NITRITE,URINE NEGATIVE (NEGATIVE); PROTEIN,URINE 100 mg/dL (NEGATIVE); URINE SPECIFIC GRAVITY 1.037; UROBILINOGEN,URINE NEGATIVE mg/dL (<2.0)
--- NOTE | 2016-08-30 07:48 | OPERATIVE REPORT E ---
Operative Report NAME: BREE FISHMAN : 1980 AGE: 35Y DATE OF SURGERY: 08/30/2016 ROOM: 330 PREOPERATIVE DIAGNOSES: 1. INTRACTABLE VOMITING. 2. ALCOHOL INTOXICATION. 3. POOR VEINS FOR INTRAVENOUS ACCESS. POSTOPERATIVE DIAGNOSES: 1. INTRACTABLE VOMITING. 2. ALCOHOL INTOXICATION. 3. POOR VEINS FOR INTRAVENOUS ACCESS. OPERATION: Insertion of left internal jugular triple-lumen catheter with ultrasound guidance. SURGEON: NATTY PHELPS M.D. INDICATION: This is a 35-year-old male who was admitted for intractable vomiting and alcohol intoxication. The patient needed fluids right away and on the IV, they can use is a single 22 lumen line. ANESTHESIA: Local with 1% Xylocaine. DESCRIPTION OF PROCEDURE: The patient was placed in Trendelenburg position and the left neck prepped and draped in the usual sterile fashion. With the use of an ultrasound, the internal jugular vein was then identified. Local anesthesia was then infiltrated along the path of the needle. Next, the left internal jugular vein was then punctured percutaneously under ultrasound guidance. A guidewire was then placed through the needle into the superior vena cava area. Next, the needle was removed and a small incision using 11 blade was then done around the guidewire. Next, a dilator was then passed through the guidewire and subsequently removed over the guidewire with pressure placement at the site for hemostasis. Next, a triple-lumen catheter was then inserted through the guidewire into the *------* superior vena cava. Next, the guidewire was removed and all 3 catheters were then irrigated with normal saline solution. There was good aspiration of blood and irrigation with fluid without resistance. Next, the catheter was then anchored through the skin with 3-0 silk. An antibiotic patch was placed over the insertion site and a transparent sterile dressing placed over the catheter. The patient is going to have chest x-ray for placement. The patient tolerated the procedure well. DICTATING PHYSICIAN: NATTY PHELPS M.D. [id number] PHY#: [id number] ID: [id number] JOB#: [id number] ACCT: [id number] cc:NATTY PHELPS M.D. >
[2016-08-30] MEDS ORDERED: NORMAL SALINE 1000 ML 2,000 ML IV ONE (07:49)
[2016-08-30] MEDS ORDERED: LEVOTHYROXINE SODIUM 0.05 MG TABLET PO SCH (08:00)
[2016-08-30 08:01] LABS: ANION GAP 18 (5-19); BLOOD UREA NITROGEN 16 mg/dL (7-20); CALCIUM 9.5 mg/dL (8.4-10.2); CARBON DIOXIDE 22 mmol/L (22-30); CHLORIDE 100 mmol/L (98-107); CREATININE RESULT 0.93 mg/dL (0.52-1.25); GLUCOSE 180 mg/dL (75-110); POTASSIUM 3.7 mmol/L (3.6-5.0); SODIUM 139.7 mmol/L (137-145)
[2016-08-30 08:04] LABS: URINE BARBITURATES SCREEN NEGATIVE; URINE METHADONE SCREEN NEGATIVE; URINE OPIATES LOW NEGATIVE; URINE PHENCYCLIDINE SCREEN NEGATIVE
[2016-08-30] MEDS: POTASSI CL 20 MEQ/50 ML RIDER 20 MEQ/50 ML RTUPB IV SCH ×2 (08:34→10:00)
[2016-08-30] MEDS ORDERED: ENALAPRILAT DIHYDRATE INJ/PF 1.25 MG/1 ML SDV IV ONE (09:26)
[2016-08-30] MEDS ORDERED: ENALAPRILAT DIHYDRATE INJ/PF 1.25 MG/1 ML SDV IV PRN (09:26)
[2016-08-30] MEDS ORDERED: ACETAMINOPHEN 325 MG TABLET PO PRN (09:27)
[2016-08-30] MEDS: HEPARIN SOD (PORCINE) 5,000 UNIT/ML 1 ML SYRINGE SUBCUT SCH ×3 (09:44→22:17)
[2016-08-30] MEDS ORDERED: POTASSI CL 20 MEQ/D5-1/2NS 1L 1,000 ML IV PRN (09:48)
[2016-08-30] MEDS ORDERED: MULTIVITAMIN TABLET PO SCH (10:00)
[2016-08-30] MEDS ORDERED: (PENDING PHARMACY ID) (Multivitamin [Multivitamins] 1 TAB) PO SCH (10:00)
[2016-08-30] MEDS ORDERED: LEVETIRACETAM 500 MG TABLET PO SCH (10:00)
[2016-08-30] MEDS ORDERED: THIAMINE HCL 100 MG, FOLIC ACID 1 MG in NORMAL SALINE 50 ML IV SCH ×2 (10:00→22:00)
[2016-08-30] MEDS ORDERED: CLONIDINE 0.2 MG/24 HR PATCH.TDWK TD SCH (10:00)
[2016-08-30] MEDS ORDERED: GABAPENTIN 300 MG CAPSULE PO SCH (10:00)
[2016-08-30] MEDS ORDERED: ACETAMINOPHEN 325 MG TABLET PO ONE (10:00)
[2016-08-30] MEDS ORDERED: THIAMINE HCL 100 MG TABLET PO SCH (10:00)
[2016-08-30] MEDS: ONDANSETRON HCL INJ/PF 4 MG/2 ML SDV IV PRN ×2 (10:28→22:25)
[2016-08-30] MEDS: DIAZEPAM 5 MG TABLET PO SCH ×3 (11:20→23:05)
[2016-08-30] MEDS: LEVETIRACETAM 500 MG TABLET PO SCH ×2 (11:21→22:13)
[2016-08-30] MEDS: SUCRALFATE 1 GM TABLET PO SCH ×4 (11:21→22:13)
[2016-08-30 12:43] LABS: ANION GAP 9 (5-19); BLOOD UREA NITROGEN 15 mg/dL (7-20); CALCIUM 9.1 mg/dL (8.4-10.2); CARBON DIOXIDE 28 mmol/L (22-30); CHLORIDE 104 mmol/L (98-107); CREATININE RESULT 0.87 mg/dL (0.52-1.25); GLUCOSE 161 mg/dL (75-110); POTASSIUM 3.7 mmol/L (3.6-5.0); SODIUM 140.7 mmol/L (137-145)
[2016-08-30] MEDS: GABAPENTIN 300 MG CAPSULE PO SCH ×2 (13:29→22:12)
--- NOTE | 2016-08-30 13:48 | PDOC PROGRESS REPORT ---
Subjective Progress Note for:: 08/30/16 Subjective:: Patient is resting comfortably when I see him. Patient makes general complaints of this pain, but is quite sleepy and returns to sleep. Physical Exam Vital Signs: Temp Pulse Resp BP Pulse Ox 97.7 F 111 H 20 165/100 H 100 08/30/16 06:58 08/30/16 06:58 08/30/16 06:58 08/30/16 06:58 08/30/16 06:58 Intake & Output 08/29/16 08/30/16 08/31/16 06:59 06:59 06:59 Weight 83.7 kg Exam: General: Lethargic, no acute respiratory distress HEENT: AT/NC, PERRL, EOMI, oropharynx is moist, pink, no scleral icterus, no conjunctival injection Neck: No JVD, trachea midline Chest: Clear to auscultation bilaterally, no wheezes rhonchi or rales CV: Regular rate and rhythm, normal S1 and S2, no murmur, rub, or gallop Abdomen: Soft, nontender to palpation, nondistended, active bowel sounds; no rebound, rigidity, or guarding Extremities: No cyanosis, clubbing or edema Results Impressions: Chest X-Ray 08/30/16 00:00 IMPRESSION: No pneumothorax post central line placement. Left central line in proper position. Abdomen/Pelvis CT 08/30/16 01:54 IMPRESSION: 1. No acute abnormality identified in the abdomen pelvis. 2. Chronic pancreatitis, unchanged. 3. Hepatic steatosis. No focal liver lesions. Assessment & Plan - Diagnosis (1) DKA (diabetic ketoacidoses) Qualifiers: Diabetes mellitus type: type 1 Is this a current diagnosis for this admission?: YesPlan: Secondary to noncompliance. Will likely transition patient this afternoon from insulin drip to regular Lantus. (2) Alcohol intoxication Qualifiers: Complication of substance-induced condition: with unspecified complication Qualified Code(s): F10.129 - Alcohol abuse with intoxication, unspecified Is this a current diagnosis for this admission?: YesPlan: Patient with DKA. Will continue thiamine and folic acid. Scheduled Valium and when necessary Ativan. (3) Acute alcohol intoxication with alcoholism Qualifiers: Complication of substance-induced condition: with unspecified complication Qualified Code(s): F10.229 - Alcohol dependence with intoxication, unspecified Is this a current diagnosis for this admission?: Yes (4) Chronic pain Qualifiers: Chronic pain type: chronic pain syndrome Qualified Code(s): G89.4 - Chronic pain syndrome Is this a current diagnosis for this admission?: YesPlan: At this time, will avoid narcotic pain medications as patient is requiring scheduled benzodiazepines for his withdrawal. Will place patient on clonidine patch. (5) PTSD (post-traumatic stress disorder) Is this a current diagnosis for this admission?: Yes (6) Seizure disorder Is this a current diagnosis for this admission?: YesPlan: Continue Tegretol and Keppra. Seizure precautions - Time Time Spent with patient: 25-34 minutes Medications reviewed and adjusted accordingly: Yes Anticipated discharge: Home
[2016-08-30] MEDS ORDERED: INSULIN GLARGINE,HUM.REC.ANLOG 1,000 UNIT/10 ML UNIT SUBCUT ONE (14:30)
[2016-08-30] MEDS: NORMAL SALINE 1000 ML 1,000 ML IV PRN ×2 (14:57→22:10)
[2016-08-30 17:24] LABS: ANION GAP 10 (5-19); BLOOD UREA NITROGEN 13 mg/dL (7-20); CALCIUM 8.8 mg/dL (8.4-10.2); CARBON DIOXIDE 25 mmol/L (22-30); CHLORIDE 104 mmol/L (98-107); CREATININE RESULT 0.81 mg/dL (0.52-1.25); GLUCOSE 199 mg/dL (75-110); POTASSIUM 3.8 mmol/L (3.6-5.0); SODIUM 139.3 mmol/L (137-145)
[2016-08-30] MEDS: INSULIN LISPRO 100 UNIT/ML 3 ML VIAL SUBCUT PRN ×2 (17:34→22:16)
[2016-08-30 20:17] VITALS: BP 145/91
[2016-08-30 21:25] LABS: ANION GAP 9 (5-19); BLOOD UREA NITROGEN 11 mg/dL (7-20); CALCIUM 9.2 mg/dL (8.4-10.2); CARBON DIOXIDE 27 mmol/L (22-30); CHLORIDE 102 mmol/L (98-107); CREATININE RESULT 0.78 mg/dL (0.52-1.25); GLUCOSE 184 mg/dL (75-110); POTASSIUM 3.5 mmol/L (3.6-5.0); SODIUM 137.6 mmol/L (137-145)
[2016-08-30] MEDS ORDERED: CARBAMAZEPINE 200 MG TABLET PO SCH (22:00)
--- NOTE | 2016-08-31 20:25 | PDOC DISCHARGE SUMMARY ---
General - Admit/Disc Date/PCP Admission Date/Primary Care Provider: 08/30/16 02:17 Discharge Date: 08/30/16 - Discharge Diagnosis (1) Left against medical advice Is this a current diagnosis for this admission?: Yes (2) DKA (diabetic ketoacidoses) Is this a current diagnosis for this admission?: Yes (3) Alcohol intoxication Is this a current diagnosis for this admission?: Yes (4) Acute alcohol intoxication with alcoholism Is this a current diagnosis for this admission?: Yes (5) Chronic pain Is this a current diagnosis for this admission?: Yes (6) PTSD (post-traumatic stress disorder) Is this a current diagnosis for this admission?: Yes (7) Seizure disorder Is this a current diagnosis for this admission?: Yes - Additional Information Resuscitation Status: Full Code Home Medications: Promethazine HCl [Phenergan 25 mg Tablet] 1 - 2 tab PO Q6H PRN #15 tablet No Home Medications 08/30/16 History of Present Illness History of Present Illness: Please see H&P for full history of present illness Hospital Course Hospital Course: Patient is a 35-year-old male with a history of alcohol dependence who is well-known to this service who was admitted for DKA and alcohol intoxication. Patient was started on scheduled Valium when necessary Ativan and insulin drip as well as fluids per protocol. During the night, patient elected to leave AGAINST MEDICAL ADVICE. Please see nursing note. He was given no prescriptions. Physical Exam Vital Signs: Temp Pulse Resp BP Pulse Ox 98.4 F 44 L 20 145/91 H 100 08/30/16 20:12 08/30/16 20:12 08/30/16 20:12 08/30/16 20:12 08/30/16 20:12 Intake & Output 08/30/16 08/31/16 09/01/16 06:59 06:59 06:59 Intake Total 1618 Output Total 725 Balance 893 Weight 83.7 kg Results Laboratory Results: 08/30/16 20:45 08/30/16 20:45 Sodium 137.6 Potassium 3.5 L Chloride 102 Carbon Dioxide 27 Anion Gap 9 BUN 11 Creatinine 0.78 Est GFR ( Amer) > 60 Est GFR (Non-Af Amer) > 60 Glucose 184 H Calcium 9.2 Impressions: Chest X-Ray 08/30/16 00:00 IMPRESSION: No pneumothorax post central line placement. Left central line in proper position. Abdomen/Pelvis CT 08/30/16 01:54 IMPRESSION: 1. No acute abnormality identified in the abdomen pelvis. 2. Chronic pancreatitis, unchanged. 3. Hepatic steatosis. No focal liver lesions. Qualifiers PATEINT BEING DISCHARGED WITH ANY OF THE FOLLOWING DIAGNOSIS?: No Plan Time Spent: Less than 30 Minutes
== END 2016-08-30 23:40 | disposition left against medical advice (07) | DRG 639 ==
LOC: ER 20:24 → EH 08-30 01:30 → INTOOBSV 08-30 02:17 → EH 08-30 02:17 → UNDOADMOB 08-30 02:17 → OBSVTOIN 08-30 02:17 → 3S 08-30 06:50
PROVIDERS: ADMIT Internal Medicine; ATTEND Internal Medicine
PROC: 02HV33Z Insertion of Infusion Device into Superior Vena Cava, Percutaneous Approach (ICD-10-PCS; principal; 2016-08-30)
PROC: B548ZZA Ultrasonography of Superior Vena Cava, Guidance (ICD-10-PCS; 2016-08-30)
PROC: 02HV33Z Insertion of Infusion Device into Superior Vena Cava, Percutaneous Approach (ICD-10-PCS; 2016-08-30)
DX: E10.10 Type 1 diabetes mellitus with ketoacidosis without coma (principal); F10.129 Alcohol abuse with intoxication, unspecified; I25.10 Atherosclerotic heart disease of native coronary artery without angina pectoris; E78.5 Hyperlipidemia, unspecified; I10 Essential (primary) hypertension; Y90.7 Blood alcohol level of 200-239 mg/100 ml; F32.9 Major depressive disorder, single episode, unspecified; F17.210 Nicotine dependence, cigarettes, uncomplicated; G40.909 Epilepsy, unspecified, not intractable, without status epilepticus; I25.2 Old myocardial infarction; Z87.820 Personal history of traumatic brain injury; Z79.4 Long term (current) use of insulin; Z79.899 Other long term (current) drug therapy
CPT/HCPCS: 36415; 71010; 74177; 80048; 80076; 80307; 81001; 82550; 82553; 82803; 82962; 83690; 84484; 85025; 93005; 93010; 96361; 96372; 96374; 99285; C1751; J1644; J1815; J2060; J2405; J2550; J3411; J3480; J3490; J7030; S0164

== ENCOUNTER 2016-09-26 05:44 | Emergency (ER) | payer OTHER, MEDICARE ==
[2016-09-26] MEDS ORDERED: NORMAL SALINE 1000 ML 1,000 ML IV PRN (06:34)
[2016-09-26] MEDS ORDERED: ONDANSETRON HCL INJ/PF 4 MG/2 ML SDV IV ONE (06:51)
[2016-09-26] MEDS ORDERED: ONDANSETRON 4 MG TAB.RAPDIS PO ONE (06:52)
--- NOTE | 2016-09-26 07:03 | ER Document Report ---
ED General - General Chief Complaint: Nausea/Vomiting Stated Complaint: VOMITING TRAVEL OUTSIDE OF THE [place] IN LAST 30 DAYS: No - HPI Patient complains to provider of: nausea vomiting Notes: Patient's coming in for nausea vomiting abdominal pain. Patient states he was released recently released from [facility] after being diagnosed pancreatitis patient states upon arriving [facility] home he did drink alcohol now is having abdominal pain going to his back along the nausea vomiting. Patient prior to my evaluation is seen walking around the examination room in no obvious distress. Patient is very well known to this facility chronic alcoholism chronic opioid abuse - Related Data Allergies/Adverse Reactions: No Known Allergies Allergy (Verified 06/27/16 06:04) Past Medical History - Social History Smoking Status: Unknown if Ever Smoked Family History: Arthritis, DM, Hyperlipidemia, Hypertension, Malignancy, Other - Past Medical History Cardiac Medical History: Reports: Hx Coronary Artery Disease, Hx Heart Attack, Hx Hypercholesterolemia, Hx Hypertension Neurological Medical History: Reports: Hx Seizures Endocrine Medical History: Reports: Hx Diabetes Mellitus Type 2 Renal/ Medical History: Denies: Hx Peritoneal Dialysis GI Medical History: Reports: Hx Cirrhosis, Hx Gastritis, Hx Gastroesophageal Reflux Disease Musculoskeltal Medical History: Reports Hx Arthritis, Reports Hx Musculoskeletal Deformity, Reports Hx Musculoskeletal Trauma Psychiatric Medical History: Reports: Hx Depression, Hx Personality Disorder, Hx Post Traumatic Stress Disorder Traumatic Medical History: Reports: Hx Traumatic Brain Injury - x2, INJURED IN I.E.D. EXPLOSION Past Surgical History: Reports: Hx Appendectomy, Hx Orthopedic Surgery - R hip replacement d/t necrosis - Immunizations Immunizations up to date: No Hx Diphtheria, Pertussis, Tetanus Vaccination: Yes Review of Systems - Review of Systems Constitutional: No symptoms reported EENT: No symptoms reported Cardiovascular: No symptoms reported Respiratory: No symptoms reported Gastrointestinal: Abdominal pain, Vomiting Genitourinary: No symptoms reported Male Genitourinary: No symptoms reported Musculoskeletal: No symptoms reported Skin: No symptoms reported Hematologic/Lymphatic: No symptoms reported Neurological/Psychological: No symptoms reported -: Yes All other systems reviewed and negative Physical Exam - Vital signs Vitals: Temp Pulse Resp BP Pulse Ox 99.2 F 155 H 16 151/93 H 96 09/26/16 06:00 09/26/16 06:00 09/26/16 06:00 09/26/16 06:00 09/26/16 06:00 Interpretation: Tachycardic - General General appearance: Appears well, Alert - HEENT Head: Normocephalic, Atraumatic Eyes: Normal Pupils: PERRL - Respiratory Respiratory status: No respiratory distress Chest status: Nontender Breath sounds: Normal Chest palpation: Normal - Cardiovascular Rhythm: Tachycardia Heart sounds: Normal auscultation Murmur: No - Abdominal Inspection: Normal Distension: No distension Bowel sounds: Normal Tenderness: Nontender Organomegaly: No organomegaly - Back Back: Normal, Nontender - Extremities General upper extremity: Normal inspection, Nontender, Normal color, Normal ROM , Normal temperature General lower extremity: Normal inspection, Nontender, Normal color, Normal ROM , Normal temperature, Normal weight bearing. No: Heena's sign - Neurological Neuro grossly intact: Yes Cognition: Normal Orientation: AAOx4 Alysia Coma Scale Eye Opening: Spontaneous Alysia Coma Scale Verbal: Oriented [place] Coma Scale Motor: Obeys Commands [place] Coma Scale Total: 15 Speech: Normal Motor strength normal: LUE, RUE, LLE, RLE Sensory: Normal - Psychological Associated symptoms: Normal affect, Normal mood - Skin Skin Temperature: Warm Skin Moisture: Dry Skin Color: Normal Course - Re-evaluation Re-evalutation: 09/26/16 07:03 Patient is very well-known is facility. Will check basic lab work to evaluate patient for DKA. If this is normal patient is alreadytolerating orals. Patient will be given Zofran for his nausea however have explained to the patient did not receive any narcotic pain medication. Patient states understanding. 09/26/16 15:27 Lab work is unremarkable. Ultrasound guided IV was established patient was given 2 L of fluid. Patient was discharged home with nausea medications. 09/26/16 15:28 Narcotic database does show the patient receives approximately 120 oxycodone tablets each month from the [facility] - Vital Signs Vital signs: Temp Pulse Resp BP Pulse Ox 97.7 F 98 18 136/98 H 99 09/26/16 11:07 09/26/16 11:07 09/26/16 11:07 09/26/16 11:07 09/26/16 11:07 - Laboratory Result Diagrams: 09/26/16 07:53 09/26/16 07:53 Laboratory results interpreted by me: 09/26/16 09/26/16 09/26/16 07:53 07:53 07:53 RDW 14.4 H Monocytes % 17.4 H Absolute Monocytes 1.6 H VBG pH 7.52 H Potassium 3.3 L Chloride 86 L Anion Gap 23 H Glucose 378 H Calcium 10.5 H Lipase 17.5 L Discharge - Discharge Clinical Impression: Nausea & vomiting Qualifiers: Vomiting type: unspecified Vomiting Intractability: unspecified Qualified Code( s): R11.2 - Nausea with vomiting, unspecified Condition: Good Disposition: HOME, SELF-CARE Instructions: Vomiting (OM) Additional Instructions: Take medication as prescribed. Continue your home medications. Please abstain from alcohol. Return to the ER symptoms worsen. Prescriptions: Metoclopramide HCl [Reglan] 5 mg PO Q6 #20 tablet Forms: Return to Work
[2016-09-26 08:19] LABS: ABSOLUTE BASOPHILS # (AUTO) 0.1 10^3/uL (0.0-0.2); ABSOLUTE LYMPHOCYTES (AUTO) 2.4 10^3/uL (0.5-4.7); ABSOLUTE MONOCYTES (AUTO) 1.6 10^3/uL (0.1-1.4); ABSOLUTE NEUT (AUTO) 4.8 10^3/uL (1.7-8.2); BASOPHILS % (AUTO) 0.9 % (0-2); EOSINOPHILS % (AUTO) 0.5 % (0-6); HEMATOCRIT 44.9 % (37.9-51.0); HEMOGLOBIN 15.6 g/dL (13.5-17.0); HGB HCT DIFFERENCE 1.9; LYMPHOCYTES % (AUTO) 26.7 % (13-45); MEAN CORPUSCULAR HEMOGLOBIN 28.8 pg (27.0-33.4); MEAN CORPUSCULAR HGB CONC 34.7 g/dL (32.0-36.0); MEAN CORPUSCULAR VOLUME 83 fl (80-97); MONOCYTES % (AUTO) 17.4 % (3-13); RED BLOOD COUNT 5.41 10^6/uL (4.35-5.55); RED CELL DISTRIBUTION WIDTH 14.4 % (11.5-14.0); SEGMENTED NEUTROPHILS % (AUTO) 54.5 % (42-78); WHITE BLOOD COUNT 8.9 10^3/uL (4.0-10.5)
[2016-09-26 08:21] LABS: VENOUS BLOOD BASE EXCESS 5.6 mmol/L; VENOUS BLOOD HCO3 28.3 mmol/L (20-32); VENOUS BLOOD PCO2 35.5 mmHg (35-63); VENOUS BLOOD PH 7.52 (7.30-7.42)
[2016-09-26 08:38] LABS: BLOOD UREA NITROGEN 9 mg/dL (7-20); CALCIUM 10.5 mg/dL (8.4-10.2); CARBON DIOXIDE 29 mmol/L (22-30); CHLORIDE 86 mmol/L (98-107); CREATININE RESULT 0.91 mg/dL (0.52-1.25); GLUCOSE 378 mg/dL (75-110); LIPASE 17.5 U/L (23-300); POTASSIUM 3.3 mmol/L (3.6-5.0); SODIUM 137.6 mmol/L (137-145)
[2016-09-26 08:59] LABS: ALCOHOL < 10 mg/dL (NONE DETECTED)
[2016-09-26 09:00] LABS: ANION GAP 23 (5-19)
[2016-09-26] MEDS ORDERED: FAMOTIDINE INJ/PF 20 MG/2 ML SDV IV ONE (09:10)
--- NOTE | 2016-09-26 09:48 | EKG REPORT ---
SEVERITY:- BORDERLINE ECG - SINUS TACHYCARDIA PROBABLE LEFT ATRIAL ABNORMALITY BORDERLINE PROLONGED QT INTERVAL : Confirmed by: Sonu Ken 26-Sep-2016 09:47:18
[2016-09-26 11:08] VITALS: BP 136/98
== END 2016-09-26 11:08 | disposition home or self-care (01) ==
LOC: ER 05:44
DX: R11.2 Nausea with vomiting, unspecified (principal)
CPT/HCPCS: 93005; 99284; 96361; 96374; 96375; 36415; 80307; 83690; 85025; 80048; 82803; 93010; S0119; J2405; J7030; S0028

== ENCOUNTER 2016-09-30 13:42 | Inpatient (IN) | payer OTHER, MEDICARE ==
[2016-09-30] MEDS ORDERED: FOLIC ACID 1 MG TABLET PO ONE (14:01)
[2016-09-30] MEDS ORDERED: THIAMINE HCL 100 MG TABLET PO ONE (14:01)
[2016-09-30] MEDS ORDERED: ONDANSETRON HCL INJ/PF 4 MG/2 ML SDV IV ONE ×2 (14:05→18:20)
[2016-09-30 15:50] LABS: ABSOLUTE BASOPHILS # (AUTO) 0.1 10^3/uL (0.0-0.2); ABSOLUTE LYMPHOCYTES (AUTO) 1.8 10^3/uL (0.5-4.7); ABSOLUTE MONOCYTES (AUTO) 0.4 10^3/uL (0.1-1.4); ABSOLUTE NEUT (AUTO) 11.8 10^3/uL (1.7-8.2); BASOPHILS % (AUTO) 0.6 % (0-2); HEMATOCRIT 46.6 % (37.9-51.0); HEMOGLOBIN 15.9 g/dL (13.5-17.0); HGB HCT DIFFERENCE 1.1; LYMPHOCYTES % (AUTO) 12.7 % (13-45); MEAN CORPUSCULAR HGB CONC 34.1 g/dL (32.0-36.0); MEAN CORPUSCULAR VOLUME 85 fl (80-97); MONOCYTES % (AUTO) 2.9 % (3-13); RED CELL DISTRIBUTION WIDTH 14.5 % (11.5-14.0); SEGMENTED NEUTROPHILS % (AUTO) 83.8 % (42-78); WHITE BLOOD COUNT 14.1 10^3/uL (4.0-10.5)
[2016-09-30] MEDS: NORMAL SALINE 1000 ML 1,000 ML IV PRN ×2 (15:56→17:35)
[2016-09-30] MEDS ORDERED: INSULIN REG, HUMAN 100 UNIT/ML 3 ML VIAL (PYX) IV ONE (16:03)
[2016-09-30] MEDS ORDERED: NORMAL SALINE 100 ML with INSULIN REGULAR, HUMAN 100 UNIT IV PRN ×4 (16:04→19:57)
[2016-09-30] MEDS ORDERED: HALOPERIDOL LACTATE INJ 5 MG/1 ML VIAL IM ONE (16:20)
[2016-09-30] MEDS ORDERED: INSULIN REG, HUMAN 100 UNIT/ML 3 ML VIAL (PYX) SUBCUT ONE (16:21)
[2016-09-30 17:15] LABS: VENOUS BLOOD BASE EXCESS -10.5 mmol/L; VENOUS BLOOD PCO2 33.1 mmHg (35-63); VENOUS BLOOD PH 7.28 (7.30-7.42)
[2016-09-30] MEDS ORDERED: INSULIN REG, HUMAN 100 UNIT/ML 3 ML VIAL (PYX) ONE (17:16)
[2016-09-30 17:18] LABS: APPEARANCE,URINE CLEAR; BILIRUBIN,URINE NEGATIVE (NEGATIVE); GLUCOSE, URINE >=500 mg/dL (NEGATIVE); KETONES,URINE TRACE mg/dL (NEGATIVE); LEUKOCYTE ESTERASE,URINE NEGATIVE (NEGATIVE); NITRITE,URINE NEGATIVE (NEGATIVE); PROTEIN,URINE 30 mg/dL (NEGATIVE); UROBILINOGEN,URINE NEGATIVE mg/dL (<2.0)
[2016-09-30 17:34] LABS: URINE BARBITURATES SCREEN NEGATIVE; URINE METHADONE SCREEN NEGATIVE; URINE OPIATES LOW NEGATIVE; URINE PHENCYCLIDINE SCREEN NEGATIVE
[2016-09-30 17:35] LABS: ALANINE AMINOTRANSFERASE 31 U/L (21-72); ALBUMIN 4.9 g/dL (3.5-5.0); ALCOHOL 232 mg/dL (NONE DETECTED); ALKALINE PHOSPHATASE 199 U/L (38-126); ASPARTATE AMINO TRANSFERASE 28 U/L (17-59); BILIRUBIN,DIRECT 0.2 mg/dL (0.0-0.4); BILIRUBIN,TOTAL 0.3 mg/dL (0.2-1.3); BLOOD UREA NITROGEN 10 mg/dL (7-20); CALCIUM 9.7 mg/dL (8.4-10.2); CHLORIDE 87 mmol/L (98-107); CREATININE RESULT 0.96 mg/dL (0.52-1.25); LIPASE 29.3 U/L (23-300); TOTAL PROTEIN 7.7 g/dL (6.3-8.2)
--- NOTE | 2016-09-30 17:40 | ER Document Report ---
ED General - General Chief Complaint: ETOH Abuse Stated Complaint: BODY PAIN Time seen by provider: 13:30 Mode of Arrival: Medic Information source: Patient, Emergency Med Personnel Notes: 35-year-old male with a long history of alcohol abuse, diabetes with noncompliance prior admissions for DKA who is brought in by EMS with report from them that he been drinking heavily and threatening suicide. On arrival here the patient was uncooperative with history other than complaining of diffuse abdominal pain which she says is chronic related to pancreatitis. Records also show a history of narcotic and benzodiazepine abuse and noncompliance with attempts at detox. Most recently the patient was admitted for DKA in early August and signed out AGAINST MEDICAL ADVICE. Physical exam Well-developed well-nourished male at times tearful and at times belligerent and at times having dry heaves no respiratory distress Skin warm and dry HEENT no soft atraumatic pupils 3 mm round reactive sclerae anicteric or [place] is moist extremities no otorhinorrhea Neck supple no adenopathy no JVD Chest clear to auscultation bilaterally breath sounds equal good aeration no accessory muscle use Heart regular rate and rhythm Abdomen bowel sounds positive soft moderate diffuse tenderness no guarding rebound rigidity no referred pain Back nontender Extremities warm to plus pulses no cyanosis no edema Neuro patient is observed to move all 4 extremities spontaneously but none would not otherwise cooperate with neurologic testing. He denies audiovisual hallucinations TRAVEL OUTSIDE OF THE [place] IN LAST 30 DAYS: No - Related Data Allergies/Adverse Reactions: No Known Allergies Allergy (Verified 06/27/16 06:04) Past Medical History - Social History Smoking Status: Current Every Day Smoker Chew tobacco use (# tins/day): No Frequency of alcohol use: Heavy Drug Abuse: None Family History: Arthritis, DM, Hyperlipidemia, Hypertension, Malignancy, Other - Past Medical History Cardiac Medical History: Reports: Hx Coronary Artery Disease, Hx Heart Attack, Hx Hypercholesterolemia, Hx Hypertension Neurological Medical History: Reports: Hx Seizures Endocrine Medical History: Reports: Hx Diabetes Mellitus Type 2 Renal/ Medical History: Denies: Hx Peritoneal Dialysis GI Medical History: Reports: Hx Cirrhosis, Hx Gastritis, Hx Gastroesophageal Reflux Disease Musculoskeltal Medical History: Reports Hx Arthritis, Reports Hx Musculoskeletal Deformity, Reports Hx Musculoskeletal Trauma Psychiatric Medical History: Reports: Hx Depression, Hx Personality Disorder, Hx Post Traumatic Stress Disorder Traumatic Medical History: Reports: Hx Traumatic Brain Injury - x2, INJURED IN I.E.D. EXPLOSION Past Surgical History: Reports: Hx Appendectomy, Hx Orthopedic Surgery - R hip replacement d/t necrosis - Immunizations Immunizations up to date: No Hx Diphtheria, Pertussis, Tetanus Vaccination: Yes Review of Systems - Review of Systems Constitutional: denies: Chills, Fever EENT: denies: Ear pain, Nose pain, Throat pain Cardiovascular: denies: Chest pain, Dyspnea Respiratory: denies: Cough, Short of breath Gastrointestinal: See HPI Genitourinary: denies: Burning Musculoskeletal: denies: Back pain, Muscle pain Skin: denies: Rash Neurological/Psychological: denies: Weakness, Numbness Physical Exam - Vital signs Vitals: Resp Pulse Ox 18 97 09/30/16 15:53 09/30/16 15:53 Course - Re-evaluation Re-evalutation: 09/30/16 18:42 Patient pulled out one IV from 1 foot and then nursing staff placed a second IV and the other ankle. Patient received IV fluids and subcutaneous as well as IV insulin and 5 of Haldol IM for safety patient and staff. Patient is too intoxicated to be adequately assess his suicidal ideation but I do not assess him as being competent to make medical decisions now. His laboratory evidence that would support DKA and do not believe that I contribute all of his electrolyte abnormalities as well as nausea vomiting just to alcohol intoxication. Patient will require central line placement as he has inadequate peripheral access now. I discussed case with Dr. Valadez of the hospitalist service and he states he will inform Dr. Norton coming on for rn bsn of this consult and requests inpatient IMCU level - Vital Signs Vital signs: Temp Pulse Resp BP Pulse Ox 97.8 F 17 140/103 H 96 09/30/16 17:11 09/30/16 17:11 09/30/16 17:11 09/30/16 17:11 - Laboratory Result Diagrams: 09/30/16 15:37 09/30/16 16:57 Laboratory results interpreted by me: 09/30/16 09/30/16 09/30/16 15:37 15:59 16:33 WBC 14.1 H RDW 14.5 H Seg Neutrophils % 83.8 H Lymphocytes % 12.7 L Monocytes % 2.9 L Absolute Neutrophils 11.8 H VBG pH VBG pCO2 VBG HCO3 Chloride Carbon Dioxide Anion Gap Glucose POC Glucose 519 H* Alkaline Phosphatase Urine Protein 30 H Urine Glucose (UA) >=500 H Urine Ketones TRACE H Salicylates Acetaminophen 09/30/16 09/30/16 09/30/16 16:57 16:57 17:26 WBC RDW Seg Neutrophils % Lymphocytes % Monocytes % Absolute Neutrophils VBG pH 7.28 L VBG pCO2 33.1 L VBG HCO3 15.0 L Chloride 87 L Carbon Dioxide 12 L Anion Gap 40 H Glucose 599 H* POC Glucose 476 H* Alkaline Phosphatase 199 H Urine Protein Urine Glucose (UA) Urine Ketones Salicylates < 1.0 L Acetaminophen < 10 L - Diagnostic Test Radiology reviewed: Image reviewed, Reports reviewed - EKG Interpretation by Me Additional EKG results interpreted by me: 09/30/16 18:20 EKG reviewed by myself shows sinus tachycardia 133 no acute changes Discharge - Discharge Clinical Impression: DKA (diabetic ketoacidoses) Qualifiers: Diabetes mellitus type: type 1 Diabetes mellitus complication detail: without coma Qualified Code(s): E10.10 - Type 1 diabetes mellitus with ketoacidosis without coma Acute alcohol intoxication with alcoholism Qualifiers: Complication of substance-induced condition: with unspecified complication Qualified Code(s): F10.229 - Alcohol dependence with intoxication, unspecified Condition: Critical Disposition: ADMITTED INPATIENT Admitting Provider: Hospitalist Unit Admitted: [facility]
[2016-09-30 18:06] LABS: CARBON DIOXIDE 12 mmol/L (22-30); POTASSIUM 4.4 mmol/L (3.6-5.0); SODIUM 138.5 mmol/L (137-145)
[2016-09-30 18:14] LABS: ANION GAP 40 (5-19)
[2016-09-30 18:17] LABS: GLUCOSE 599 mg/dL (75-110)
[2016-09-30] MEDS ORDERED: FENTANYL CITRATE INJ/PF 100 MCG/2 ML AMPUL IV ONE (18:39)
--- NOTE | 2016-09-30 19:01 | EKG REPORT ---
SEVERITY:- BORDERLINE ECG - SINUS TACHYCARDIA BORDERLINE INFERIOR Q WAVES : Confirmed by: Artemio Kiser MD 30-Sep-2016 19:00:15
[2016-09-30] MEDS ORDERED: NORMAL SALINE 1000 ML 1,000 ML IV ONE (19:38)
[2016-09-30] MEDS ORDERED: 1/2 NORMAL SALINE 2,000 ML IV ONE (19:55)
[2016-09-30] MEDS ORDERED: 1/2 NORMAL SALINE 1,000 ML IV PRN (19:55)
[2016-09-30] MEDS ORDERED: DEXTROSE 40% GEL 15 GM TUBE PO PRN ×2 (19:57)
[2016-09-30] MEDS ORDERED: DEXTROSE 50%-WATER 25 GM/50 ML DISP.SYRIN IV PRN ×2 (19:57)
[2016-09-30] MEDS ORDERED: GLUCAGON,HUMAN RECOMB 1 MG INJ IM PRN (19:57)
[2016-09-30 20:57] LABS: BLOOD UREA NITROGEN 10 mg/dL (7-20); CALCIUM 9.4 mg/dL (8.4-10.2); CREATININE RESULT 0.74 mg/dL (0.52-1.25); GLUCOSE 322 mg/dL (75-110)
[2016-09-30] MEDS ORDERED: ACETAMINOPHEN 325 MG TABLET PO PRN (21:10)
[2016-09-30] MEDS ORDERED: MORPHINE SULFATE 10 MG/ML INJ IV PRN (21:10)
[2016-09-30 21:14] LABS: ANION GAP 27 (5-19)
[2016-09-30 21:15] LABS: CARBON DIOXIDE 15 mmol/L (22-30); CHLORIDE 97 mmol/L (98-107); POTASSIUM 3.9 mmol/L (3.6-5.0); SODIUM 139.4 mmol/L (137-145)
[2016-09-30] MEDS ORDERED: NICOTINE 21 MG/24 HR PATCH.TD24 TD PRN (21:28)
[2016-09-30] MEDS ORDERED: MAGNESIUM HYDROXIDE SUSP 30 ML UDCUP PO PRN (21:28)
[2016-09-30] MEDS ORDERED: LORAZEPAM INJ 2 MG/1 ML VIAL IV PRN ×2 (21:35)
[2016-09-30] MEDS ORDERED: ENALAPRILAT DIHYDRATE INJ/PF 1.25 MG/1 ML SDV IV PRN (21:35)
--- NOTE | 2016-09-30 21:58 | PDOC H&P ---
History of Present Illness Admission Date/PCP: 09/30/16 19:23 [place] Patient complains of: Body pain History of Present Illness: BREE FISHMAN is a 35 year old male, with underlying type I diabetes mellitus, posttraumatic stress disorder, personality disorder, chronic alcohol abuse, well known to the hospitalist service for multiple admissions for both diabetic ketoacidosis and/or acute alcohol intoxication/withdrawal, who presents to the emergency room for evaluation of above complaint. Patient has been discussed with daytime hospitalist who discussed the patient with the emergency room physician who evaluated the patient. Patient himself was noted to be somewhat agitated and at times belligerent with ER staff, and has required chemical sedation in the emergency room. He realizes he is in [facility] and that it is 2017, but is not sure why he is here. Basically can provide no other information concerning the events that led him to coming to the emergency room. Emergency room physician notes reviewed. According to emergency room physician notes, EMS reported patient was threatening suicide. Currently resting quietly, somewhat sedated, complaining of mild diffuse abdominal pain. Does have a reported history of chronic abdominal pain secondary to alcohol-related pancreatitis. Denies any "sore spots" anywhere on his body. Hospitalized on our service 08/30/2016 for diabetic ketoacidosis and alcohol intoxication. Left AGAINST MEDICAL ADVICE. History and physical and discharge summary have been reviewed. Laboratory results are listed in [employer] and are reviewed. X-ray summary results are listed below, with full report(s) reviewed. . EKG reviewed. And compared to a tracing from 09/26/2016. Social history/personal habits: Patient somewhat sedated. Information obtained from review of current ER records, history and physical exam from August 30 of this year, and history and physical exam from September 05 of last year. Allergies/adverse reactions NKDA. Home medications Home medications initially autopopulated into [employer] may not accurately reflect patient's true medications, dosages, and/or frequencies. orthodontic laboratory technician has reconciled medications. REVIEW OF SYSTEMS: See history and present illness.No further information available this point in time. PHYSICAL EXAMINATION: 6 feet 4 inches tall. 81.6 kg. BMI 21.9 kg/m. Blood pressure 155/98. Pulse 134 and regular. 94% saturation on room air. Respirations are 16 and unlabored. Temperature 97.8. Well-nourished well-developed though somewhat chronically ill-appearing male appearing approximately his stated age. Appears not to feel very well. Somewhat sedated, but does awaken reasonably easily. Maintaining his airway well. Pharmacist'S Aide Tearence is present. Skin is warm and dry. No grossly obvious evidence of rash in areas of skin examined. No subcutaneous nodules palpated. Extensive tattoos. ENT: Hearing grossly normal to normal conversation. Tongue midline on protrusion pink and slightly tacky. Eyes: No scleral icterus. Pupils equal and reactive to light at 4 mm. [place] conjunctivae. No raccoon eyes. Neck is supple and nontender to gentle active range of motion and palpation. Midline trachea. No palpable thyroid nodule mass enlargement or tenderness. Lymphatic: No palpable cervical or clavicular nodes. Neck and lymphatic exams limited by patient body habitus. Psychiatric: Difficult to adequately evaluate due to his current status. See history and present illness. Lungs: Auscultation reveals clear and equal breath sounds bilaterally. No use of accessory respiratory muscles. Cardiovascular: Heart regular rate and rhythm, without gallop murmur or rub. No carotid or abdominal aortic bruits. No ankle or pedal edema. palpable dorsalis pedis pulses. Abdomen: soft, , with positive bowel sounds, and mild diffuse tenderness, without evidence of guarding or peritoneal signs.. No upper abdominal mass or organomegaly palpated. Extremities: Feet are warm and dry. No calf tenderness to compression. No grossly obvious visual evidence of calf swelling. Neurologic: Moves upper extremities grossly normally. Patellar reflexes absent. Absent Babinski. Light touch difficult to evaluate due to his current status.. Dorsiflexion and plantarflexion of feet 5 / 5 and symmetric. Past Medical History Past Medical History: Information related to past medical history mainly obtained through review of old records, including above-noted multiple history and physical exams, along with current emergency room notes, due to patient's somewhat sedated current status. Cardiac Medical History: Reports: Coronary Artery Disease, Myocardial Infarction , Hyperlipidema, Hypertension Neurological Medical History: Reports: Seizures Endocrine Medical History: Reports: Diabetes Mellitus Type 1 GI Medical History: Reports: Cirrhosis, Gastroesophageal Reflux Disease Musculoskeltal Medical History: Reports: Arthritis Psychiatric Medical History: Reports: Alcohol Dependency, Depression, Personality Disorder, Post Traumatic Stress Disorder, Tobacco Dependency Traumatic Medical History: Reports: Traumatic Brain Injury - x2, INJURED IN I.E.D. EXPLOSION Past Surgical History Past Surgical History: Reports: Appendectomy, Orthopedic Surgery - R hip replacement d/t necrosis Social History Information Source: Emergency Med Personnel, [facility] Records Smoking Status: Current Every Day Smoker Frequency of Alcohol Use: Heavy Hx Recreational Drug Use: No Drugs: None Hx Prescription Drug Abuse: No - Advance Directive Resuscitation Status: Full Code Surrogate healthcare decision maker:: Uncertain Family History Family History: Arthritis, DM, Hyperlipidemia, Hypertension, Malignancy, Other Parental Family History Reviewed: No - patient not able to provide adequate information due to current status. Children Family History Reviewed: No - patient not able to provide adequate information due to current status. Sibling(s) Family History Reviewed.: No - patient not able to provide adequate information due to current status. Medication/Allergy Home Medications: Promethazine HCl [Phenergan 25 mg Tablet] 1 - 2 tab PO Q6H PRN #15 tablet Amlodipine/Atorvastatin [Amlodipine-Atorvast 5-10 mg] 1 tab PO DAILY 09/30/16 Carbamazepine [Tegretol 200 Mg Tablet] 600 mg PO QHS 09/30/16 Chlordiazepoxide HCl [Librium 25 mg Capsule] 1 cap PO ASDIR PRN 09/30/16 Gabapentin [Neurontin 300 mg Capsule] 300 mg PO Q8 09/30/16 Insulin Glargine,Hum.rec.anlog [Lantus Insulin Inj 300 Unit/3 ml Pen] 25 unit SUBCUT Q12 09/30/16 Insulin Lispro [Humalog Insulin 100 Unit/1 ml 3 ml Vial] 0 unit SUBCUT .SLD SCALE 09/30/16 Insulin Lispro [Humalog] 6 units SUBCUT AC 09/30/16 Lamotrigine [Lamictal Xr] 50 mg PO DAILY 09/30/16 Levetiracetam [Keppra 500 mg Tablet] 500 mg PO Q12 09/30/16 Levothyroxine Sodium [Synthroid 0.05 mg Tablet] 0.05 mg PO QAM 09/30/16 Lisinopril 40 mg PO DAILY 09/30/16 Multivitamin [Tab-A-Joanne] 1 tab PO DAILY 09/30/16 Pantoprazole Sodium [Protonix] 40 mg PO DAILY 09/30/16 Prochlorperazine Maleate [Compazine 10 mg Tablet] 10 mg PO ASDIR PRN 09/30/16 Promethazine HCl [Phenergan 25 mg Tablet] 25 mg PO Q6HP PRN 09/30/16 Quetiapine Fumarate [Seroquel 100 mg Tablet] 300 mg PO Q8 09/30/16 Sucralfate [Carafate 1 gm Tablet] 1 gm PO ACHS 09/30/16 Thiamine HCl [Thiamine 100 mg Tablet] 100 mg PO DAILY 09/30/16 Allergies/Adverse Reactions: No Known Allergies Allergy (Verified 06/27/16 06:04) Physical Exam Vital Signs: Temp Pulse Resp BP Pulse Ox 97.8 F 22 H 155/98 H 93 09/30/16 17:11 09/30/16 20:31 09/30/16 20:31 09/30/16 20:31 Intake & Output 09/29/16 09/30/16 10/01/16 00:59 00:59 00:59 Weight 81.647 kg Results Impressions: Chest X-Ray 09/30/16 19:37 IMPRESSION: CENTRAL VENOUS ACCESS CATHETER IN APPROPRIATE LOCATION. NO PNEUMOTHORAX. NEW CENTRAL LINE. Assessment & Plan - Diagnosis (1) Abdominal pain, generalized Is this a current diagnosis for this admission?: YesPlan: No evidence of acute surgical abdomen at this point in time. When necessary pain medication. Follow clinically. (2) DM (diabetes mellitus) type 1 with ketoacidosis Qualifiers: Diabetes mellitus complication detail: without coma Qualified Code(s ): E10.10 - Type 1 diabetes mellitus with ketoacidosis without coma Is this a current diagnosis for this admission?: YesPlan: Patient will be admitted under DKA protocol. Insulin drip. Vigorous fluid hydration. Q 4 hours chemistry 7. Hourly Accu-Cheks. Addition of dextrose to intravenous fluid once serum glucose and/or Accu-Cheks 275 or less. IV Pepcid for gastritis prophylaxis. Patient is full code. I have strongly encouraged patient not to get out of bed to avoid a fall with injury. Knee high SCDs for DVT prophylaxis, along with subcutaneous Lovenox. Impression and plans were discussed with patient , who concurs. Critical care Time spent in evaluation and management of patient: 73 minutes (3) Suicidal ideation Is this a current diagnosis for this admission?: YesPlan: Suicide precautions. IVC papers have been drawn up. Psychiatric consult. Sitter. (4) PTSD (post-traumatic stress disorder) Is this a current diagnosis for this admission?: YesPlan: Resume home medications as appropriate once these have been reviewed. (5) Tobacco dependency Is this a current diagnosis for this admission?: YesPlan: When necessary nicotine patch. (6) Seizure disorder Is this a current diagnosis for this admission?: YesPlan: Seizure precautions. Resume home medications as appropriate once these have been reviewed. (7) Alcohol intoxication Qualifiers: Complication of substance-induced condition: with unspecified complication Qualified Code(s): F10.129 - Alcohol abuse with intoxication, unspecified Is this a current diagnosis for this admission?: YesPlan: Alcohol withdrawal protocol, which will include banana bag daily, along with both scheduled and when necessary Ativan. - Inpatient Certification Based on my medical assessment, after consideration of the patient's comorbidities, presenting symptoms, or acuity I expect that the services needed warrant INPATIENT care.: Yes I certify that my determination is in accordance with my understanding of Medicare's requirements for reasonable and necessary INPATIENT services [42 CFR 412.3e].: Yes Medical Necessity: Significant Comorbidiites Make Outpatient Treatment Too Risky , Need Close Monitoring Due to Risk of Patient Decompensation, Need For IV Fluids, Need For Continuous Telemetry Monitoring, Need for Pain Control, Risk of Complication if Not Cared For in Hospital, Risk of Diagnosis Which Will Require Inpatient Eval/Care/Monitoring Post Hospital Care: D/C or Transfer Summary
[2016-09-30] MEDS ORDERED: FAMOTIDINE INJ/PF 20 MG/2 ML SDV IV SCH (22:00)
[2016-09-30] MEDS ORDERED: ENOXAPARIN SODIUM INJ 40 MG/0.4 ML DISP.SYRIN SUBCUT ONE (22:00)
[2016-09-30] MEDS: ATORVASTATIN CALCIUM 10 MG TABLET PO SCH (22:04)
[2016-09-30] MEDS: POTASSI CL 20 MEQ/D5NS 1L 1,000 ML IV PRN (22:04)
[2016-09-30] MEDS: SUCRALFATE 1 GM TABLET PO SCH (22:04)
[2016-09-30] MEDS: POTASSI CL 20 MEQ/50 ML RIDER 20 MEQ/50 ML RTUPB IV SCH (23:16)
[2016-10-01 00:53] LABS: ANION GAP 15 (5-19); BLOOD UREA NITROGEN 8 mg/dL (7-20); CALCIUM 8.8 mg/dL (8.4-10.2); CARBON DIOXIDE 20 mmol/L (22-30); CHLORIDE 99 mmol/L (98-107); CREATININE RESULT 0.63 mg/dL (0.52-1.25); GLUCOSE 172 mg/dL (75-110); POTASSIUM 3.9 mmol/L (3.6-5.0); SODIUM 133.8 mmol/L (137-145)
[2016-10-01] MEDS: LORAZEPAM INJ 2 MG/1 ML VIAL IV PRN ×3 (01:23→17:08)
[2016-10-01] MEDS: POTASSI CL 20 MEQ/50 ML RIDER 20 MEQ/50 ML RTUPB IV SCH (01:30)
[2016-10-01] MEDS: POTASSI CL 20 MEQ/D5NS 1L 1,000 ML IV PRN ×3 (02:20→12:30)
[2016-10-01 04:51] LABS: ANION GAP 10 (5-19); BLOOD UREA NITROGEN 8 mg/dL (7-20); CALCIUM 8.7 mg/dL (8.4-10.2); CARBON DIOXIDE 25 mmol/L (22-30); CHLORIDE 103 mmol/L (98-107); CREATININE RESULT 0.66 mg/dL (0.52-1.25); GLUCOSE 115 mg/dL (75-110); POTASSIUM 4.2 mmol/L (3.6-5.0)
[2016-10-01 05:24] LABS: HEMATOCRIT 30.7 % (37.9-51.0); HGB HCT DIFFERENCE 1.4; MEAN CORPUSCULAR HEMOGLOBIN 28.7 pg (27.0-33.4); MEAN CORPUSCULAR VOLUME 82 fl (80-97); RED BLOOD COUNT 3.74 10^6/uL (4.35-5.55); RED CELL DISTRIBUTION WIDTH 14.4 % (11.5-14.0); WHITE BLOOD COUNT 21.8 10^3/uL (4.0-10.5)
[2016-10-01 05:29] LABS: ANISOCYTOSIS SLIGHT; BASOPHILS % (MANUAL) 0 % (0-2); EOSINOPHILS % (MANUAL) 0 % (0-6); LYMPHOCYTES % (MANUAL) 10 % (13-45); POLYCHROMASIA SLIGHT; SCHISTOCYTES SLIGHT; TOTAL CELLS COUNTED 100; TOXIC GRANULATION SLIGHT
[2016-10-01 05:30] LABS: HEMOGLOBIN 10.7 g/dL (13.5-17.0)
[2016-10-01] MEDS ORDERED: LANSOPRAZOLE 30 MG TAB.RAP.DR PO SCH (06:00)
[2016-10-01] MEDS: ENOXAPARIN SODIUM INJ 40 MG/0.4 ML DISP.SYRIN SUBCUT SCH (07:46)
[2016-10-01] MEDS: SUCRALFATE 1 GM TABLET PO SCH ×4 (07:47→21:53)
[2016-10-01] MEDS: QUETIAPINE FUMARATE 100 MG TABLET PO SCH ×3 (07:47→21:52)
[2016-10-01] MEDS: LEVOTHYROXINE SODIUM 0.05 MG TABLET PO SCH (07:47)
[2016-10-01 09:16] LABS: ANION GAP 9 (5-19); BLOOD UREA NITROGEN 6 mg/dL (7-20); CALCIUM 8.9 mg/dL (8.4-10.2); CARBON DIOXIDE 26 mmol/L (22-30); CHLORIDE 105 mmol/L (98-107); GLUCOSE 84 mg/dL (75-110); POTASSIUM 3.4 mmol/L (3.6-5.0); SODIUM 139.8 mmol/L (137-145)
[2016-10-01] MEDS ORDERED: INSULIN LISPRO 100 UNIT/ML 3 ML VIAL SUBCUT PRN (09:17)
[2016-10-01] MEDS ORDERED: INSULIN GLARGINE,HUM.REC.ANLOG 1,000 UNIT/10 ML UNIT SUBCUT ONE (09:45)
[2016-10-01] MEDS: AMLODIPINE BESYLATE 5 MG TABLET PO SCH ×2 (09:45→21:51)
[2016-10-01] MEDS: MULTIVITAMIN TABLET PO SCH (09:45)
[2016-10-01] MEDS: GABAPENTIN 300 MG CAPSULE PO SCH ×2 (09:45→17:08)
[2016-10-01] MEDS: LEVETIRACETAM 500 MG TABLET PO SCH ×2 (09:46→21:51)
[2016-10-01] MEDS: THIAMINE HCL 100 MG TABLET PO SCH (09:46)
[2016-10-01] MEDS: DOCUSATE SODIUM 100 MG CAPSULE PO SCH ×2 (09:46→17:09)
[2016-10-01] MEDS: LISINOPRIL 10 MG TABLET PO SCH (09:46)
[2016-10-01] MEDS: INSULIN GLARGINE,HUM.REC.ANLOG 300 UNIT/3 ML INSULN.PEN SUBCUT SCH ×2 (09:52→22:20)
[2016-10-01] MEDS ORDERED: LAMOTRIGINE 50 MG PO SCH (10:00)
[2016-10-01] MEDS ORDERED: AMLODIPINE PO SCH (10:00)
[2016-10-01] MEDS ORDERED: LAMOTRIGINE 25 MG TAB.CHEW PO SCH (10:00)
[2016-10-01] MEDS ORDERED: AMLODIPINE BESYLATE 5 MG TABLET PO SCH (10:00)
[2016-10-01] MEDS ORDERED: (PENDING PHARMACY ID) (Lisinopril [Lisinopril] 40 MG) PO SCH (10:00)
[2016-10-01] MEDS ORDERED: ATORVASTATIN PO SCH (10:00)
[2016-10-01] MEDS ORDERED: INSULIN LISPRO 6 UNIT SUBCUT SCH (11:00)
[2016-10-01 14:33] LABS: ANION GAP 7 (5-19); BLOOD UREA NITROGEN 5 mg/dL (7-20); CALCIUM 9.1 mg/dL (8.4-10.2); CARBON DIOXIDE 27 mmol/L (22-30); CHLORIDE 108 mmol/L (98-107); CREATININE RESULT 0.69 mg/dL (0.52-1.25); GLUCOSE 196 mg/dL (75-110); POTASSIUM 3.7 mmol/L (3.6-5.0); SODIUM 141.8 mmol/L (137-145)
--- NOTE | 2016-10-01 15:13 | PDOC PROGRESS REPORT ---
Subjective Progress Note for:: 10/01/16 Subjective:: The patient was seen earlier today on rounds. The patient states that he is in excruciating pain. This is generalized in acute on his chronic pain. Patient was found to be tremulous and diaphoretic as well. Blood sugars have improved nicely with insulin drip. The patient denies any nausea, vomiting, diarrhea, shortness of breath, dizziness, chest pain, heart palpitations, fevers, or chills. The patient has remained afebrile. Blood pressures have been in a good range. When prompted the patient voices no other concerns at this time. Review of systems: The rest of the review of systems is negative. Physical Exam Vital Signs: Temp Pulse Resp BP Pulse Ox 98.6 F 110 H 20 118/65 97 10/01/16 11:01 10/01/16 14:00 10/01/16 11:01 10/01/16 11:01 10/01/16 11:01 Intake & Output 09/29/16 09/30/16 10/01/16 23:59 23:59 23:59 Intake Total 0 Output Total 1025 Balance -1025 Weight 83.4 kg General appearance: PRESENT: disheveled, well-developed, well-nourished Head exam: PRESENT: atraumatic, normocephalic Eye exam: PRESENT: conjunctiva pale, EOMI, PERRLA. ABSENT: scleral icterus Ear exam: PRESENT: normal external ear exam Mouth exam: PRESENT: moist, tongue midline Neck exam: ABSENT: carotid bruit, JVD, lymphadenopathy, thyromegaly, tracheal deviation, tracheostomy Respiratory exam: PRESENT: decreased breath sounds, tachypnea. ABSENT: rales, rhonchi, symmetrical, unlabored, wheezes Cardiovascular exam: PRESENT: RRR. ABSENT: diastolic murmur, rubs, systolic murmur Pulses: PRESENT: normal dorsalis pedis pul Vascular exam: PRESENT: normal capillary refill GI/Abdominal exam: PRESENT: normal bowel sounds, soft. ABSENT: distended, guarding, mass, organolmegaly, rebound, tenderness Rectal exam: PRESENT: deferred Extremities exam: PRESENT: full ROM. ABSENT: calf tenderness, clubbing, pedal edema Neurological exam: PRESENT: alert, awake, oriented to person. ABSENT: motor sensory deficit Psychiatric exam: PRESENT: depressed, flat affect, suicidal ideation, unusual affect. ABSENT: homicidal ideation Skin exam: PRESENT: dry, intact, warm. ABSENT: cyanosis, rash Results Laboratory Results: 10/01/16 04:25 10/01/16 13:55 10/01/16 10/01/16 10/01/16 00:27 04:25 04:25 WBC 21.8 H RBC 3.74 L Hgb 10.7 L D Hct 30.7 L MCV 82 MCH 28.7 MCHC 35.0 RDW 14.4 H Plt Count 258 Seg Neutrophils % Not Reportable Lymphocytes % Not Reportable Monocytes % Not Reportable Eosinophils % Not Reportable Basophils % Not Reportable Absolute Neutrophils Not Reportable Absolute Lymphocytes Not Reportable Absolute Monocytes Not Reportable Absolute Eosinophils Not Reportable Absolute Basophils Not Reportable Sodium 133.8 L 138.0 Potassium 3.9 4.2 Chloride 99 103 Carbon Dioxide 20 L 25 Anion Gap 15 10 BUN 8 8 Creatinine 0.63 0.66 Est GFR ( Amer) > 60 > 60 Est GFR (Non-Af Amer) > 60 > 60 Glucose 172 H 115 H Calcium 8.8 8.7 10/01/16 10/01/16 08:15 13:55 WBC RBC Hgb Hct MCV MCH MCHC RDW Plt Count Seg Neutrophils % Lymphocytes % Monocytes % Eosinophils % Basophils % Absolute Neutrophils Absolute Lymphocytes Absolute Monocytes Absolute Eosinophils Absolute Basophils Sodium 139.8 141.8 Potassium 3.4 L 3.7 Chloride 105 108 H Carbon Dioxide 26 27 Anion Gap 9 7 BUN 6 L 5 L Creatinine 0.70 0.69 Est GFR ( Amer) > 60 > 60 Est GFR (Non-Af Amer) > 60 > 60 Glucose 84 196 H Calcium 8.9 9.1 Impressions: Chest X-Ray 09/30/16 19:37 IMPRESSION: CENTRAL VENOUS ACCESS CATHETER IN APPROPRIATE LOCATION. NO PNEUMOTHORAX. NEW CENTRAL LINE. Assessment & Plan - Diagnosis (1) DM (diabetes mellitus) type 1 with ketoacidosis Qualifiers: Diabetes mellitus complication detail: without coma Qualified Code(s ): E10.10 - Type 1 diabetes mellitus with ketoacidosis without coma Is this a current diagnosis for this admission?: YesPlan: Is sugars have improved gap is closed. Will transition to basal dose insulin as well as [place] coverage. Will check Accu-Cheks every hour 3 then transitioned before meals and at bedtime. Will order diet. (2) Acute alcohol intoxication with alcoholism Qualifiers: Complication of substance-induced condition: with unspecified complication Qualified Code(s): F10.229 - Alcohol dependence with intoxication, unspecified Is this a current diagnosis for this admission?: YesPlan: Will monitor for evidence of delirium. Continue when necessary benzodiazepines. (3) CAD (coronary artery disease) Qualifiers: Coronary Disease-Associated Artery/Lesion type: [place] artery [place] vs. transplanted heart: [place] heart Associated angina: without angina Qualified Code(s): I25.10 - Atherosclerotic heart disease of [place] coronary artery without angina pectoris Is this a current diagnosis for this admission?: YesPlan: Will continue home medications. (4) Chronic pain Qualifiers: Chronic pain type: chronic pain syndrome Qualified Code(s): G89.4 - Chronic pain syndrome Is this a current diagnosis for this admission?: YesPlan: Will continue home medications. (5) Chronic pancreatitis Qualifiers: Pancreatitis type: alcohol induced Qualified Code(s): K86.0 - Alcohol-induced chronic pancreatitis Is this a current diagnosis for this admission?: YesPlan: Lipase is now normal (6) Hyperlipidemia Qualifiers: Hyperlipidemia type: pure hypercholesterolemia Qualified Code(s): E78.00 - Pure hypercholesterolemia, unspecified; E78.0 - Pure hypercholesterolemia Is this a current diagnosis for this admission?: Yes (7) PTSD (post-traumatic stress disorder) Is this a current diagnosis for this admission?: Yes (8) Seizure disorder Is this a current diagnosis for this admission?: YesPlan: Will continue home medications. (9) Suicidal ideation Is this a current diagnosis for this admission?: Yes (10) Tobacco dependency Is this a current diagnosis for this admission?: YesPlan: Will continue when necessary nicotine patch (11) Alcohol withdrawal Qualifiers: Complication of substance-induced condition: with unspecified complication Qualified Code(s): F10.239 - Alcohol dependence with withdrawal, unspecified Is this a current diagnosis for this admission?: No (12) Poor dentition Is this a current diagnosis for this admission?: Yes (13) DVT prophylaxis Is this a current diagnosis for this admission?: Yes - Time Time Spent with patient: on this visit including assessment, plan, physical examination, family meeting, specialty collaboration, and patient education is 35 minutes. Time Spent with patient: 35 or more minutes - 8413-2146 Medications reviewed and adjusted accordingly: Yes Anticipated discharge: Home Within: within 48 hours
[2016-10-01] MEDS: LANSOPRAZOLE 30 MG TAB.RAP.DR PO SCH (17:09)
[2016-10-01] MEDS ORDERED: NORMAL SALINE 1000 ML 1,000 ML with THIAMINE HCL 100 MG, MVI, ADULT NO.1 WITH VIT K 10 ... IV SCH ×4 (18:00)
[2016-10-01 18:22] LABS: ANION GAP 8 (5-19); BLOOD UREA NITROGEN 4 mg/dL (7-20); CALCIUM 9.2 mg/dL (8.4-10.2); CARBON DIOXIDE 27 mmol/L (22-30); CHLORIDE 109 mmol/L (98-107); CREATININE RESULT 0.71 mg/dL (0.52-1.25); GLUCOSE 105 mg/dL (75-110); POTASSIUM 3.4 mmol/L (3.6-5.0); SODIUM 143.6 mmol/L (137-145)
[2016-10-01 21:52] LABS: ANION GAP 6 (5-19); BLOOD UREA NITROGEN 4 mg/dL (7-20); CALCIUM 9.3 mg/dL (8.4-10.2); CARBON DIOXIDE 28 mmol/L (22-30); CHLORIDE 109 mmol/L (98-107); CREATININE RESULT 0.71 mg/dL (0.52-1.25); GLUCOSE 97 mg/dL (75-110); POTASSIUM 3.3 mmol/L (3.6-5.0)
[2016-10-01] MEDS: ATORVASTATIN CALCIUM 10 MG TABLET PO SCH (21:52)
[2016-10-01] MEDS: LAMOTRIGINE 25 MG TAB.CHEW PO SCH (21:53)
[2016-10-01] MEDS ORDERED: CARBAMAZEPINE 200 MG TABLET PO SCH (22:00)
[2016-10-02 00:49] LABS: ANION GAP 8 (5-19); BLOOD UREA NITROGEN 3 mg/dL (7-20); CALCIUM 9.3 mg/dL (8.4-10.2); CARBON DIOXIDE 26 mmol/L (22-30); CHLORIDE 109 mmol/L (98-107); GLUCOSE 96 mg/dL (75-110); POTASSIUM 3.2 mmol/L (3.6-5.0); SODIUM 142.9 mmol/L (137-145)
[2016-10-02] MEDS: GABAPENTIN 300 MG CAPSULE PO SCH ×2 (04:18→09:42)
[2016-10-02 05:26] LABS: HEMATOCRIT 30.9 % (37.9-51.0); HEMOGLOBIN 10.5 g/dL (13.5-17.0); HGB HCT DIFFERENCE 0.6; MEAN CORPUSCULAR HEMOGLOBIN 28.9 pg (27.0-33.4); MEAN CORPUSCULAR HGB CONC 34.1 g/dL (32.0-36.0); MEAN CORPUSCULAR VOLUME 85 fl (80-97); RED BLOOD COUNT 3.65 10^6/uL (4.35-5.55); RED CELL DISTRIBUTION WIDTH 14.5 % (11.5-14.0); WHITE BLOOD COUNT 10.6 10^3/uL (4.0-10.5)
[2016-10-02 05:36] LABS: ALANINE AMINOTRANSFERASE 29 U/L (21-72); ALBUMIN 2.7 g/dL (3.5-5.0); ALKALINE PHOSPHATASE 92 U/L (38-126); ANION GAP 7 (5-19); ASPARTATE AMINO TRANSFERASE 53 U/L (17-59); BILIRUBIN,DIRECT 0.3 mg/dL (0.0-0.4); BILIRUBIN,TOTAL 0.5 mg/dL (0.2-1.3); BLOOD UREA NITROGEN 3 mg/dL (7-20); CALCIUM 9.5 mg/dL (8.4-10.2); CARBON DIOXIDE 29 mmol/L (22-30); CHLORIDE 108 mmol/L (98-107); CREATININE RESULT 0.71 mg/dL (0.52-1.25); GLUCOSE 59 mg/dL (75-110); SODIUM 143.7 mmol/L (137-145); TOTAL PROTEIN 5.3 g/dL (6.3-8.2)
[2016-10-02] MEDS: LANSOPRAZOLE 30 MG TAB.RAP.DR PO SCH (05:39)
[2016-10-02] MEDS: QUETIAPINE FUMARATE 100 MG TABLET PO SCH (05:39)
[2016-10-02 05:52] LABS: POTASSIUM 3.1 mmol/L (3.6-5.0)
[2016-10-02] MEDS ORDERED: LANSOPRAZOLE 30 MG TAB.RAP.DR PO SCH (06:00)
[2016-10-02] MEDS: LEVOTHYROXINE SODIUM 0.05 MG TABLET PO SCH (08:01)
[2016-10-02] MEDS: SUCRALFATE 1 GM TABLET PO SCH ×2 (08:01→10:02)
[2016-10-02] MEDS: ENOXAPARIN SODIUM INJ 40 MG/0.4 ML DISP.SYRIN SUBCUT SCH (08:01)
[2016-10-02] MEDS ORDERED: TRAMADOL HCL 50 MG TABLET PO PRN (09:34)
[2016-10-02] MEDS: INSULIN GLARGINE,HUM.REC.ANLOG 300 UNIT/3 ML INSULN.PEN SUBCUT SCH (09:40)
[2016-10-02] MEDS: LAMOTRIGINE 25 MG TAB.CHEW PO SCH (09:40)
[2016-10-02] MEDS: DOCUSATE SODIUM 100 MG CAPSULE PO SCH (09:42)
[2016-10-02] MEDS: MULTIVITAMIN TABLET PO SCH (09:43)
[2016-10-02] MEDS: LISINOPRIL 10 MG TABLET PO SCH (09:43)
[2016-10-02] MEDS: AMLODIPINE BESYLATE 5 MG TABLET PO SCH (09:43)
[2016-10-02] MEDS: LEVETIRACETAM 500 MG TABLET PO SCH (09:43)
[2016-10-02] MEDS: THIAMINE HCL 100 MG TABLET PO SCH (09:43)
[2016-10-02] MEDS ORDERED: MAGNESIUM OXIDE 400 MG TABLET PO SCH (10:00)
[2016-10-02] MEDS ORDERED: POTASSIUM CHLORIDE 10 MEQ TABLET.SA PO SCH (10:00)
[2016-10-02 11:57] VITALS: BP 166/93
--- NOTE | 2016-10-02 15:20 | PDOC DISCHARGE SUMMARY ---
General - Admit/Disc Date/PCP Admission Date/Primary Care Provider: 09/30/16 21:22 [facility] Discharge Date: 10/02/16 - Discharge Diagnosis (1) DM (diabetes mellitus) type 1 with ketoacidosis Is this a current diagnosis for this admission?: Yes (2) Acute alcohol intoxication with alcoholism Is this a current diagnosis for this admission?: Yes (3) CAD (coronary artery disease) Is this a current diagnosis for this admission?: Yes (4) Chronic pain Is this a current diagnosis for this admission?: Yes (5) Chronic pancreatitis Is this a current diagnosis for this admission?: Yes (6) Hyperlipidemia Is this a current diagnosis for this admission?: Yes (7) PTSD (post-traumatic stress disorder) Is this a current diagnosis for this admission?: Yes (8) Seizure disorder Is this a current diagnosis for this admission?: Yes (9) Tobacco dependency Is this a current diagnosis for this admission?: Yes (10) Alcohol withdrawal Is this a current diagnosis for this admission?: No (11) Poor dentition Is this a current diagnosis for this admission?: Yes (12) DVT prophylaxis Is this a current diagnosis for this admission?: Yes - Additional Information Resuscitation Status: Full Code Discharge Diet: As Tolerated, Regular, Cardiac, Diabetic Discharge Activity: Activity As Tolerated Home Medications: Promethazine HCl [Phenergan 25 mg Tablet] 1 - 2 tab PO Q6H PRN #15 tablet Amlodipine/Atorvastatin [Amlodipine-Atorvast 5-10 mg] 1 tab PO DAILY 09/30/16 Carbamazepine [Tegretol 200 mg Tablet] 600 mg PO QHS 09/30/16 Chlordiazepoxide HCl [Librium 25 mg Capsule] 1 cap PO ASDIR PRN 09/30/16 Gabapentin [Neurontin 300 mg Capsule] 300 mg PO Q8 09/30/16 Insulin Glargine,Hum.rec.anlog [Lantus Insulin 100 Unit/mL] 25 unit SUBCUT Q12 09/30/16 Insulin Lispro [Humalog Insulin (Lispro) 100 unit/mL] 0 unit SUBCUT .SLD SCALE 09/30/16 Insulin Lispro [Humalog] 6 units SUBCUT AC 09/30/16 Lamotrigine [Lamictal Xr] 50 mg PO DAILY 09/30/16 Levetiracetam [Keppra 500 mg Tablet] 500 mg PO Q12 09/30/16 Levothyroxine Sodium [Synthroid 0.05 mg Tablet] 0.05 mg PO QAM 09/30/16 Lisinopril 40 mg PO DAILY 09/30/16 Multivitamin [Tab-A-Joanne] 1 tab PO DAILY 09/30/16 Pantoprazole Sodium [Protonix] 40 mg PO DAILY 09/30/16 Prochlorperazine Maleate [Compazine 10 mg Tablet] 10 mg PO ASDIR PRN 09/30/16 Promethazine HCl [Phenergan 25 mg Tablet] 25 mg PO Q6HP PRN 09/30/16 Quetiapine Fumarate [Seroquel 100 mg Tablet] 300 mg PO Q8 09/30/16 Sucralfate [Carafate 1 gm Tablet] 1 gm PO ACHS 09/30/16 Thiamine HCl [Thiamine 100 mg Tablet] 100 mg PO DAILY 09/30/16 History of Present Illness Patient complains of: Body ache History of Present Illness: BREE FISHMAN is a 35 year old male, with underlying type I diabetes mellitus, posttraumatic stress disorder, personality disorder, chronic alcohol abuse, well known to the hospitalist service for multiple admissions for both diabetic ketoacidosis and/or acute alcohol intoxication/withdrawal, who presents to the emergency room for evaluation of body ache. Patient himself was noted to be somewhat agitated and at times belligerent with ER staff, and has required chemical sedation in the emergency room. At the time of admission the patient realized he is in [facility] and that it is 2016, but is not sure why he was brought here. Basically can provide no other information concerning the events that led him to coming to the emergency room. According to emergency room physician notes, EMS reported patient was threatening suicide. Denies any "sore spots" anywhere on his body. Hospitalized on our service 08/30/2016 for diabetic ketoacidosis and alcohol intoxication. Left AGAINST MEDICAL ADVICE. History and physical and discharge summary have been reviewed. The patient has had 3 inpatient stays and 6 additional ER contacts in the past 6 months. Hospital Course Hospital Course: The patient was admitted to [facility], [place]. Diabetic ketoacidosis protocol was utilized including an insulin drip, every hourly blood glucose checks, venous blood gases , and aggressive hydration. Patient was acidotic but was able to maintain airway. Electrolytes were corrected accordingly. Potassium normalized with hydration. The patient was transitioned to a basal dose of insulin and drip was discontinued. Patient was able to tolerate meals. The patient's symptoms of abdominal pain, nausea, or vomiting were managed with appropriate analgesia and/or antiemetic. The patient is now able to maintain hydration. The patient was cover with benzodiazepines to avoid drawl symptoms. At the time of discharge the patient is completely asymptomatic. The patient denies any suicidal or homicidal ideations the patient denies any intent of self-harm. Patient has no recollection of making the statements to EMS and states "I must a been drunk". The patient states that at no point in time has he wanted to end his life. Involuntary commitment was rescinded as he no longer met criteria. The patient is quite eager for discharge. Physical Exam Vital Signs: Temp Pulse Resp BP Pulse Ox 97.7 F 84 20 166/93 H 98 10/02/16 11:55 10/02/16 11:55 10/02/16 11:55 10/02/16 11:55 10/02/16 11:55 Intake & Output 09/30/16 10/01/16 10/02/16 23:59 23:59 23:59 Intake Total 2680 770 Output Total 1825 Balance 855 770 Weight 83.4 kg General appearance: PRESENT: disheveled, well-developed, well-nourished Head exam: PRESENT: atraumatic, normocephalic Eye exam: PRESENT: conjunctiva pale, EOMI, PERRLA. ABSENT: scleral icterus Ear exam: PRESENT: normal external ear exam Mouth exam: PRESENT: moist, tongue midline Neck exam: ABSENT: carotid bruit, JVD, lymphadenopathy, thyromegaly, tracheal deviation, tracheostomy Respiratory exam: PRESENT: decreased breath sounds, tachypnea. ABSENT: rales, rhonchi, symmetrical, unlabored, wheezes Cardiovascular exam: PRESENT: RRR. ABSENT: diastolic murmur, rubs, systolic murmur Pulses: PRESENT: normal dorsalis pedis pul Vascular exam: PRESENT: normal capillary refill GI/Abdominal exam: PRESENT: normal bowel sounds, soft. ABSENT: distended, guarding, mass, organolmegaly, rebound, tenderness Rectal exam: PRESENT: deferred Extremities exam: PRESENT: full ROM. ABSENT: calf tenderness, clubbing, pedal edema Neurological exam: PRESENT: alert, awake, oriented to person. ABSENT: motor sensory deficit Psychiatric exam: PRESENT: depressed, flat affect, suicidal ideation, unusual affect. ABSENT: homicidal ideation Skin exam: PRESENT: dry, intact, warm. ABSENT: cyanosis, rash Results Laboratory Results: Labs- Last Values WBC 10.6 10^3/uL (4.0-10.5) H 10/02/16 05:10 RBC 3.65 10^6/uL (4.35-5.55) L 10/02/16 05:10 Hgb 10.5 g/dL (13.5-17.0) L 10/02/16 05:10 Hct 30.9 % (37.9-51.0) L 10/02/16 05:10 MCV 85 fl (80-97) 10/02/16 05:10 MCH 28.9 pg (27.0-33.4) 10/02/16 05:10 MCHC 34.1 g/dL (32.0-36.0) 10/02/16 05:10 RDW 14.5 % (11.5-14.0) H 10/02/16 05:10 Plt Count 245 10^3/uL (150-450) 10/02/16 05:10 Total Counted 100 10/01/16 04:25 Seg Neutrophils % Not Reportable 10/01/16 04:25 Seg Neuts % (Manual) 87 % (42-78) H 10/01/16 04:25 Lymphocytes % Not Reportable 10/01/16 04:25 Lymphocytes % (Manual) 10 % (13-45) L 10/01/16 04:25 Monocytes % Not Reportable 10/01/16 04:25 Monocytes % (Manual) 3 % (3-13) 10/01/16 04:25 Eosinophils % Not Reportable 10/01/16 04:25 Eosinophils % (Manual) 0 % (0-6) 10/01/16 04:25 Basophils % Not Reportable 10/01/16 04:25 Basophils % (Manual) 0 % (0-2) 10/01/16 04:25 Absolute Neutrophils Not Reportable 10/01/16 04:25 Abs Neuts (Manual) 19.0 10^3/uL (1.7-8.2) H 10/01/16 04:25 Absolute Lymphocytes Not Reportable 10/01/16 04:25 Abs Lymphs (Manual) 2.2 10^3/uL (0.5-4.7) 10/01/16 04:25 Absolute Monocytes Not Reportable 10/01/16 04:25 Abs Monocytes (Manual) 0.7 10^3/uL (0.1-1.4) 10/01/16 04:25 Absolute Eosinophils Not Reportable 10/01/16 04:25 Absolute Eos (Manual) 0.0 10^3/uL (0.0-0.6) 10/01/16 04:25 Absolute Basophils Not Reportable 10/01/16 04:25 Abs Basophils (Manual) 0.0 10^3/uL (0.0-0.2) 10/01/16 04:25 Toxic Granulation SLIGHT 10/01/16 04:25 Platelet Comment ADEQUATE 10/01/16 04:25 Polychromasia SLIGHT 10/01/16 04:25 Anisocytosis SLIGHT 10/01/16 04:25 Schistocytes SLIGHT 10/01/16 04:25 VBG pH 7.28 (7.30-7.42) L 09/30/16 16:57 VBG pCO2 33.1 mmHg (35-63) L 09/30/16 16:57 VBG HCO3 15.0 mmol/L (20-32) L 09/30/16 16:57 VBG Base Excess -10.5 mmol/L 09/30/16 16:57 Sodium 143.7 mmol/L (137-145) 10/02/16 05:10 Potassium 3.1 mmol/L (3.6-5.0) L 10/02/16 05:10 Chloride 108 mmol/L (98-107) H 10/02/16 05:10 Carbon Dioxide 29 mmol/L (22-30) 10/02/16 05:10 Anion Gap 7 (5-19) 10/02/16 05:10 BUN 3 mg/dL (7-20) L 10/02/16 05:10 Creatinine 0.71 mg/dL (0.52-1.25) 10/02/16 05:10 Est GFR ( Amer) > 60 (>60) 10/02/16 05:10 Est GFR (Non-Af Amer) > 60 (>60) 10/02/16 05:10 Glucose 59 mg/dL (75-110) L 10/02/16 05:10 POC Glucose 108 mg/dL (70-110) 10/02/16 11:27 Calcium 9.5 mg/dL (8.4-10.2) 10/02/16 05:10 Magnesium 1.8 mg/dL (1.6-2.3) 09/30/16 20:46 Total Bilirubin 0.5 mg/dL (0.2-1.3) 10/02/16 05:10 Direct Bilirubin 0.3 mg/dL (0.0-0.4) 10/02/16 05:10 Indirect Bilirubin Not Reportable 10/02/16 05:10 Neonat Total Bilirubin Not Reportable 10/02/16 05:10 AST 53 U/L (17-59) 10/02/16 05:10 ALT 29 U/L (21-72) 10/02/16 05:10 Alkaline Phosphatase 92 U/L (38-126) 10/02/16 05:10 Troponin I < 0.012 ng/mL 09/30/16 16:57 Total Protein 5.3 g/dL (6.3-8.2) L 10/02/16 05:10 Albumin 2.7 g/dL (3.5-5.0) L 10/02/16 05:10 Lipase 29.3 U/L (23-300) 09/30/16 16:57 TSH 1.09 uIU/mL (0.47-4.68) 09/30/16 16:57 Urine Color STRAW 09/30/16 16:33 Urine Appearance CLEAR 09/30/16 16:33 Urine pH 5.0 (5.0-9.0) 09/30/16 16:33 Ur Specific [place] 1.030 09/30/16 16:33 Urine Protein 30 mg/dL (NEGATIVE) H 09/30/16 16:33 Urine Glucose (UA) >=500 mg/dL (NEGATIVE) H 09/30/16 16:33 Urine Ketones TRACE mg/dL (NEGATIVE) H 09/30/16 16:33 Urine Blood NEGATIVE (NEGATIVE) 09/30/16 16:33 Urine Nitrite NEGATIVE (NEGATIVE) 09/30/16 16:33 Urine Bilirubin NEGATIVE (NEGATIVE) 09/30/16 16:33 Urine Urobilinogen NEGATIVE mg/dL (<2.0) 09/30/16 16:33 Ur Leukocyte Esterase NEGATIVE (NEGATIVE) 09/30/16 16:33 Urine WBC (Auto) 2 /HPF 09/30/16 16:33 Urine RBC (Auto) 1 /HPF 09/30/16 16:33 Urine Mucus (Auto) RARE /LPF 09/30/16 16:33 Urine Ascorbic Acid NEGATIVE (NEGATIVE) 09/30/16 16:33 Salicylates < 1.0 mg/dL (2.0-20.0) L 09/30/16 16:57 Urine Opiates Screen NEGATIVE 09/30/16 16:33 Urine Methadone Screen NEGATIVE 09/30/16 16:33 Acetaminophen < 10 ug/mL (10-30) L 09/30/16 16:57 Ur Barbiturates Screen NEGATIVE 09/30/16 16:33 Carbamazepine < 2.4 ug/mL (4.0-12.0) L 09/30/16 20:46 Lamotrigine Cancelled 09/30/16 20:46 Levetiracetam Cancelled 09/30/16 20:46 Ur Phencyclidine Scrn NEGATIVE 09/30/16 16:33 Ur Amphetamines Screen NEGATIVE 09/30/16 16:33 U Benzodiazepines Scrn NEGATIVE 09/30/16 16:33 Urine Cocaine Screen NEGATIVE 09/30/16 16:33 U Marijuana (THC) Screen NEGATIVE 09/30/16 16:33 Serum Alcohol 232 mg/dL (NONE DETECTED) 09/30/16 16:57 Impressions: Chest X-Ray 09/30/16 19:37 IMPRESSION: CENTRAL VENOUS ACCESS CATHETER IN APPROPRIATE LOCATION. NO PNEUMOTHORAX. NEW CENTRAL LINE. Qualifiers PATEINT BEING DISCHARGED WITH ANY OF THE FOLLOWING DIAGNOSIS?: No Plan Discharge Plan: The patient is to [facility] for hospital followup. Time Spent: Less than 30 Minutes
[2016-10-03 13:33] LABS: LAMOTRIGINE (LAMICTAL) None Detected ug/mL (2.0-20.0)
[2016-10-04 06:53] LABS: LEVETIRACETAM (KEPPRA) None Detected ug/mL (10.0-40.0)
== END 2016-10-02 12:12 | disposition home or self-care (01) | DRG 638 ==
LOC: ER 13:42 → EH 19:23 → UNDOADMIN 19:23 → EH 21:22 → 3W 23:51
PROVIDERS: ADMIT Family Medicine; ATTEND Family Medicine
DX: E10.10 Type 1 diabetes mellitus with ketoacidosis without coma (principal); R45.851 Suicidal ideations; K86.1 Other chronic pancreatitis; F10.239 Alcohol dependence with withdrawal, unspecified; K86.0 Alcohol-induced chronic pancreatitis; Y90.7 Blood alcohol level of 200-239 mg/100 ml; I25.10 Atherosclerotic heart disease of native coronary artery without angina pectoris; E78.5 Hyperlipidemia, unspecified; F43.10 Post-traumatic stress disorder, unspecified; G40.909 Epilepsy, unspecified, not intractable, without status epilepticus; F10.229 Alcohol dependence with intoxication, unspecified; I10 Essential (primary) hypertension; M19.90 Unspecified osteoarthritis, unspecified site; F32.9 Major depressive disorder, single episode, unspecified; F60.9 Personality disorder, unspecified; I25.2 Old myocardial infarction; F17.210 Nicotine dependence, cigarettes, uncomplicated; G89.4 Chronic pain syndrome; Z79.4 Long term (current) use of insulin; Z79.899 Other long term (current) drug therapy; Z87.820 Personal history of traumatic brain injury; Z96.641 Presence of right artificial hip joint; Z91.19 Patient's noncompliance with other medical treatment and regimen; Z82.61 Family history of arthritis; Z83.3 Family history of diabetes mellitus; Z80.9 Family history of malignant neoplasm, unspecified; Z82.49 Family history of ischemic heart disease and other diseases of the circulatory system
CPT/HCPCS: 36415; 71010; 80048; 80053; 80156; 80175; 80177; 80307; 81001; 82803; 82962; 83690; 83735; 84443; 84484; 85025; 85027; 93005; 93010; C1751; J1630; J1650; J1815; J2060; J2405; J3010; J3480; J3490; J7030; S0028

== ENCOUNTER 2016-10-16 02:22 | Emergency (ER) | payer OTHER, MEDICARE ==
--- NOTE | 2016-10-16 03:52 | ER Document Report ---
ED General - General Cannot obtain history due to: Intoxicated, Uncooperative TRAVEL OUTSIDE OF THE [place] IN LAST 30 DAYS: No <BREE RAMIREZ - Last Filed: 10/16/16 05:54> <PAVAN GASTON - Last Filed: 10/16/16 14:45> - General Chief Complaint: Knee Pain Stated Complaint: ETOH Time Seen by Provider: 10/16/16 03:28 - HPI Notes: 35-year-old male presents crying with no clear chief complaint. Really he would not answer any questions and continues uncontrollably crying there has been up and out in the main ED asking to leave. He points to his entire torso saying he has pain. He will not specify any more history other than that and he wants something for pain. He appears intoxicated and I cannot obtain further history (BREE RAMIREZ) - Related Data Allergies/Adverse Reactions: No Known Allergies Allergy (Verified 10/16/16 03:18) Past Medical History - Social History Smoking Status: Current Every Day Smoker Frequency of alcohol use: Responds Yes Family History: Arthritis, DM, Hyperlipidemia, Hypertension, Malignancy, Other Patient has suicidal ideation: No Patient has homicidal ideation: No - Past Medical History Cardiac Medical History: Reports: Hx Coronary Artery Disease, Hx Heart Attack, Hx Hypercholesterolemia, Hx Hypertension Neurological Medical History: Reports: Hx Seizures Endocrine Medical History: Reports: Hx Diabetes Mellitus Type 1, Hx Diabetes Mellitus Type 2 Renal/ Medical History: Denies: Hx Peritoneal Dialysis GI Medical History: Reports: Hx Cirrhosis, Hx Gastritis, Hx Gastroesophageal Reflux Disease Musculoskeltal Medical History: Reports Hx Arthritis, Reports Hx Musculoskeletal Deformity, Reports Hx Musculoskeletal Trauma Psychiatric Medical History: Reports: Hx Depression, Hx Personality Disorder, Hx Post Traumatic Stress Disorder Traumatic Medical History: Reports: Hx Traumatic Brain Injury - x2, INJURED IN I.E.D. EXPLOSION Past Surgical History: Reports: Hx Appendectomy, Hx Orthopedic Surgery - R hip replacement d/t necrosis - Immunizations Immunizations up to date: No Hx Diphtheria, Pertussis, Tetanus Vaccination: Yes <BREE RAMIREZ - Last Filed: 10/16/16 05:54> Review of Systems - Review of Systems -: Yes ROS unobtainable due to patient's medical condition - Uncooperative and appears intoxicated <BREE RAMIREZ - Last Filed: 10/16/16 05:54> Physical Exam - Vital signs Interpretation: Tachycardic <BREE RAMIREZ - Last Filed: 10/16/16 05:54> <PAVAN GASTON - Last Filed: 10/16/16 14:45> - Vital signs Vitals: Temp Pulse Resp BP Pulse Ox 98.6 F 103 H 22 H 142/99 H 91 L 10/16/16 02:32 10/16/16 02:32 10/16/16 02:32 10/16/16 02:32 10/16/16 02:32 - Notes Notes: Physical Exam: GENERAL: VS as per nursing doc. chronically ill-appearing moderate distress is very anxious babbling, crying and frothing at the mouth. HEAD: Atraumatic, normocephalic. EYES: Sclera anicteric, no conjunctival injection or discharge. ENT: Moist mucous membranes. NECK: Normal range of motion, supple LUNGS: Coarse bilaterally HEART: Tachycardic without murmurs. Equal peripheral pulses. ABDOMEN: Soft, exquisite tenderness to palpation of the entire abdomen and chest wall. With distraction I note no peritoneal signs, bowel sounds are normal EXTREMITIES: Normal range of motion. No calf tenderness. Negative Homans. No edema. NEUROLOGICAL: Patient will not follow commands but there are no gross motor or sensory deficits noted. Staggering gait. PSYCH: Continually crying and anxious, tremulous. SKIN: Warm, dry. Cap refill < 2 sec. (BREE RAMIREZ) Course - Laboratory Result Diagrams: 10/16/16 05:28 10/16/16 05:28 <BREE RAMIREZ - Last Filed: 10/16/16 05:54> - Laboratory Result Diagrams: 10/16/16 05:28 10/16/16 05:28 <PAVAN GASTON - Last Filed: 10/16/16 14:45> - Re-evaluation Re-evalutation: 10/16/16 05:54 Patient eventually had to be restrained a security multiple times had to be called as he was attempting to leave in his intoxicated state and not capable of decision-making. Furthermore he was a danger to himself as he was attempting to ambulate around and is extremely unsteady on his feet and felt to be a danger of falling and injury, in addition, he was belligerent toward staff. (BREE RAMIREZ) - Vital Signs Vital signs: Temp Pulse Resp BP Pulse Ox 97.4 F 140 H 18 157/101 H 98 10/16/16 09:46 10/16/16 09:46 10/16/16 13:00 10/16/16 12:22 10/16/16 13:00 - Laboratory Laboratory results interpreted by me: 10/16/16 10/16/16 10/16/16 05:28 05:28 11:27 RDW 14.4 H Sodium 145.8 H Carbon Dioxide 19 L Anion Gap 27 H Glucose 386 H POC Glucose 365 H Alkaline Phosphatase 176 H Lipase 21.0 L Discharge <BREE RAMIREZ - Last Filed: 10/16/16 05:54> <PAVAN GASTON - Last Filed: 10/16/16 14:45> - Discharge Clinical Impression: Chronic alcohol abuse Acute alcohol intoxication Qualifiers: Complication of substance-induced condition: uncomplicated Qualified Code(s): F10.920 - Alcohol use, unspecified with intoxication, uncomplicated Hyperglycemia due to type 2 diabetes mellitus Qualifiers: Diabetes mellitus fpc insulin use: without superintendent container terminal use Qualified Code(s ): E11.65 - Type 2 diabetes mellitus with hyperglycemia Acute alcohol intoxication with alcoholism Qualifiers: Complication of substance-induced condition: with unspecified complication Qualified Code(s): F10.229 - Alcohol dependence with intoxication, unspecified Chronic pain Qualifiers: Chronic pain type: chronic pain syndrome Qualified Code(s): G89.4 - Chronic pain syndrome Condition: Good Disposition: AGAINST MEDICAL ADVICE
[2016-10-16] MEDS ORDERED: LORAZEPAM INJ 2 MG/1 ML VIAL IV ONE ×2 (03:59→11:03)
[2016-10-16 05:37] LABS: ABSOLUTE BASOPHILS # (AUTO) 0.1 10^3/uL (0.0-0.2); ABSOLUTE LYMPHOCYTES (AUTO) 2.2 10^3/uL (0.5-4.7); ABSOLUTE MONOCYTES (AUTO) 0.6 10^3/uL (0.1-1.4); BASOPHILS % (AUTO) 1.3 % (0-2); EOSINOPHILS % (AUTO) 0.1 % (0-6); HEMATOCRIT 46.6 % (37.9-51.0); HEMOGLOBIN 15.4 g/dL (13.5-17.0); HGB HCT DIFFERENCE -0.4; LYMPHOCYTES % (AUTO) 27.6 % (13-45); MEAN CORPUSCULAR HEMOGLOBIN 28.1 pg (27.0-33.4); MEAN CORPUSCULAR HGB CONC 32.9 g/dL (32.0-36.0); MEAN CORPUSCULAR VOLUME 85 fl (80-97); MONOCYTES % (AUTO) 7.2 % (3-13); RED BLOOD COUNT 5.46 10^6/uL (4.35-5.55); RED CELL DISTRIBUTION WIDTH 14.4 % (11.5-14.0); SEGMENTED NEUTROPHILS % (AUTO) 63.8 % (42-78); WHITE BLOOD COUNT 7.8 10^3/uL (4.0-10.5)
[2016-10-16 05:50] LABS: ALANINE AMINOTRANSFERASE 35 U/L (21-72); ALBUMIN 4.8 g/dL (3.5-5.0); ALCOHOL 299 mg/dL (NONE DETECTED); ALKALINE PHOSPHATASE 176 U/L (38-126); ASPARTATE AMINO TRANSFERASE 30 U/L (17-59); BILIRUBIN,DIRECT 0.3 mg/dL (0.0-0.4); BILIRUBIN,TOTAL 0.3 mg/dL (0.2-1.3); BLOOD UREA NITROGEN 10 mg/dL (7-20); CALCIUM 9.8 mg/dL (8.4-10.2); CHLORIDE 100 mmol/L (98-107); CREATININE RESULT 0.97 mg/dL (0.52-1.25); GLUCOSE 386 mg/dL (75-110); TOTAL PROTEIN 7.8 g/dL (6.3-8.2)
[2016-10-16 05:57] LABS: CARBON DIOXIDE 19 mmol/L (22-30); POTASSIUM 3.9 mmol/L (3.6-5.0); SODIUM 145.8 mmol/L (137-145)
[2016-10-16 06:01] LABS: ANION GAP 27 (5-19)
[2016-10-16] MEDS ORDERED: LORAZEPAM INJ 2 MG/1 ML VIAL IM ONE (06:04)
[2016-10-16 08:39] LABS: URINE BARBITURATES SCREEN NEGATIVE; URINE METHADONE SCREEN NEGATIVE; URINE OPIATES LOW NEGATIVE; URINE PHENCYCLIDINE SCREEN NEGATIVE
[2016-10-16] MEDS ORDERED: DIPHENHYDRAMINE HCL 50 MG/ML VIAL IM ONE (09:50)
[2016-10-16] MEDS ORDERED: METOCLOPRAMIDE HCL INJ/PF 10 MG/2 ML SDV IM ONE (09:50)
--- NOTE | 2016-10-16 10:15 | ER Document Report ---
Doctor's Note Notes: 10/16/16 09:51 This alcoholic patient had an EtOH level of about 300 at 5:30 AM his morning. He does want to go home now and there is a responsible adult coming to pick him up. He is been dry heaving for the last 30 minutes. He last received Ativan about 6 AM this morning. He also has been tachycardic in the 120s according to the nurse. While he is actively retching his heart rate goes to the 140s. He will be given an IM dose of Benadryl and Reglan to try to control his nausea. 10/16/16 14:42 Patient's alcohol level is probably approaching 100 at this time. He is no longer nauseous and wants to go home. He remains tachycardic with a heart rate in the 130-140 range. He has received 2 L of saline. I was going to give a liter of LR due to his metabolic acidosis but he is unwilling to stay and wants to sign out AMA. I have discussed this with him. He states he has all his medications at home including pain medication which might be contributing to his tachycardia. He will most likely start drinking alcohol when he gets home.
[2016-10-16] MEDS ORDERED: NORMAL SALINE 1000 ML 1,000 ML IV ONE ×2 (10:21→12:49)
[2016-10-16] MEDS ORDERED: INSULIN REG, HUMAN 100 UNIT/ML 3 ML VIAL (PYX) IV ONE (11:31)
[2016-10-16 12:27] VITALS: BP 157/101
[2016-10-16] MEDS ORDERED: RINGERS SOLUTION,LACTATED 1,000 ML IV ONE (13:49)
== END 2016-10-16 14:43 | disposition left against medical advice (07) ==
LOC: ER 02:22
DX: F10.229 Alcohol dependence with intoxication, unspecified (principal); E11.65 Type 2 diabetes mellitus with hyperglycemia; Y90.8 Blood alcohol level of 240 mg/100 ml or more; R11.0 Nausea; R00.0 Tachycardia, unspecified; R52 Pain, unspecified; G89.4 Chronic pain syndrome; F17.200 Nicotine dependence, unspecified, uncomplicated; I25.10 Atherosclerotic heart disease of native coronary artery without angina pectoris; I25.2 Old myocardial infarction; E78.00 Pure hypercholesterolemia, unspecified; I10 Essential (primary) hypertension; E11.9 Type 2 diabetes mellitus without complications; Z87.820 Personal history of traumatic brain injury; Z96.641 Presence of right artificial hip joint
CPT/HCPCS: 99285; 96372; 96361; 96375; 96365; 36415; 82962; 80307 ×2; 83690; 85025; 80053; 84484; 71010; J1200; J2765; J2060; J1815; J7030; J7120

== ENCOUNTER 2016-10-23 22:11 | Emergency (ER) | payer OTHER, MEDICARE ==
[2016-10-23] MEDS ORDERED: NORMAL SALINE 1000 ML 1,000 ML IV ONE ×2 (22:29)
[2016-10-23] MEDS ORDERED: LORAZEPAM INJ 2 MG/1 ML VIAL IV ONE ×2 (22:29→23:36)
[2016-10-23] MEDS ORDERED: ONDANSETRON HCL INJ/PF 4 MG/2 ML SDV IV ONE (22:44)
[2016-10-23] MEDS ORDERED: DIPHENHYDRAMINE HCL 50 MG/ML VIAL IV ONE (22:45)
--- NOTE | 2016-10-23 22:47 | ER Document Report ---
ED General - General TRAVEL OUTSIDE OF THE [place] IN LAST 30 DAYS: No <DEVONTE LYNN - Last Filed: 10/24/16 06:19> <BLESSING CASEY - Last Filed: 10/24/16 12:52> - General Stated Complaint: NAUSEA,VOMITING Time Seen by Provider: 10/23/16 22:22 Notes: Patient is a 35-year-old vomiting, shaking, generalized abdominal pain. Patient denies any alcohol for "12 days" although EMS reports that he told them that he was drinking earlier today. Patient denies hematemesis, hematochezia, fever, injury. Patient states he has been taking his insulin but his "sugars have been all over the place". (DEVONTE LYNN) - Related Data Allergies/Adverse Reactions: No Known Allergies Allergy (Verified 10/24/16 08:11) Past Medical History - General Information source: Patient, Emergency Med Personnel - Social History Smoking Status: Former Smoker Frequency of alcohol use: Heavy Drug Abuse: None Lives with: Friend Family History: Arthritis, DM, Hyperlipidemia, Hypertension, Malignancy, Other - Past Medical History Cardiac Medical History: Reports: Hx Coronary Artery Disease, Hx Heart Attack, Hx Hypercholesterolemia, Hx Hypertension Neurological Medical History: Reports: Hx Seizures Endocrine Medical History: Reports: Hx Diabetes Mellitus Type 2 Renal/ Medical History: Denies: Hx Peritoneal Dialysis GI Medical History: Reports: Hx Cirrhosis, Hx Gastritis, Hx Gastroesophageal Reflux Disease Musculoskeltal Medical History: Reports Hx Arthritis, Reports Hx Musculoskeletal Deformity, Reports Hx Musculoskeletal Trauma Psychiatric Medical History: Reports: Hx Depression, Hx Personality Disorder, Hx Post Traumatic Stress Disorder Traumatic Medical History: Reports: Hx Traumatic Brain Injury - x2, INJURED IN I.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 EXPLOSION Past Surgical History: Reports: Hx Appendectomy, Hx Orthopedic Surgery - R hip replacement d/t necrosis - Immunizations Immunizations up to date: No Hx Diphtheria, Pertussis, Tetanus Vaccination: Yes <DEVONTE LYNN - Last Filed: 10/24/16 06:19> Review of Systems - Review of Systems Constitutional: No symptoms reported EENT: No symptoms reported Cardiovascular: No symptoms reported Respiratory: No symptoms reported Gastrointestinal: See HPI Genitourinary: No symptoms reported Male Genitourinary: No symptoms reported Musculoskeletal: No symptoms reported Skin: No symptoms reported Hematologic/Lymphatic: No symptoms reported Neurological/Psychological: No symptoms reported <DEVONTE LYNN - Last Filed: 10/24/16 06:19> Physical Exam - Vital signs Interpretation: Normal - General General appearance: Anxious In distress: Mild - patient occassionally shivering, diaphoretic, slightly pale ; he is alert and answers questions without difficulty - HEENT Head: Normocephalic, Atraumatic Eyes: Normal Conjunctiva: Normal Extraocular movements intact: Yes Eyelashes: Normal Pupils: PERRL Sinus: Normal Nasal: Normal Mouth/Lips: Normal Pharynx: Normal Neck: Normal - Respiratory Respiratory status: No respiratory distress Chest status: Nontender Breath sounds: Normal. No: Decreased air movement, Wheezing Chest palpation: Normal - Cardiovascular Rhythm: Regular, Tachycardia Heart sounds: Normal auscultation, S1 appreciated, S2 appreciated Murmur: No - Abdominal Inspection: Normal Distension: No distension Bowel sounds: Normal Tenderness: Tender - mild generalized abdominal tenderness, no guarding Organomegaly: No organomegaly - Back Back: Normal, Nontender - Extremities General upper extremity: Normal inspection, Nontender, Normal color, Normal ROM , Normal temperature General lower extremity: Normal inspection, Nontender, Normal color, Normal ROM , Normal temperature, Normal weight bearing. No: Heena's sign - Neurological Neuro grossly intact: Yes Cognition: Normal Orientation: AAOx4 [place] Coma Scale Eye Opening: Spontaneous Alysia Coma Scale Verbal: Oriented [place] Coma Scale Motor: Obeys Commands [place] Coma Scale Total: 15 Speech: Normal Motor strength normal: LUE, RUE, LLE, RLE Sensory: Normal - Psychological Associated symptoms: Anxious - Skin Skin Temperature: Warm Skin Moisture: Diaphoretic <DEVONTE LYNN - Last Filed: 10/24/16 06:19> Course - Laboratory Result Diagrams: 10/23/16 22:55 10/23/16 23:44 <DEVONTE LYNN - Last Filed: 10/24/16 06:19> - Laboratory Result Diagrams: 10/23/16 22:55 10/23/16 23:44 <BLESSING CASEY - Last Filed: 10/24/16 12:52> - Re-evaluation Re-evalutation: Patient vomiting at bedside, tremulous, tachycardic. Very difficult to start IV access on, initially I placed an EJ on the right side although patient is very active and soon after this would not flush even though initially was working without any difficulty. This was removed, patient had a hand IV placed by the nurse and I placed an ultrasound-guided right bicep IV. Patient was given almost 2 L of fluid status, Ativan, tachycardia reduced to 120s. Workup is still pending because of difficulties. CBC unremarkable, chemistry shows slightly elevated anion gap and low bicarbonate, venous blood gas does not show acidosis but does show somewhat low bicarbonate. Metabolic acidosis with what appears to be respiratory compensation with low CO2. Patient reportedly was hyperventilating at home per EMS. Urinalysis still pending. Patient went down both of the peripheral lines that we had, when I asked him why he did this he states he does not know and he does not remember. Discussed with Dr. Jarrett. Recommends IO access for additional fluids and medications, does not recommend a central line because patient is actually doing fairly well today and patient will likely have needs for central access in the near future, does not feel that today those future central lines should be jeopardized. I discussed with patient, he agrees with IO access. IO access in place, giving additional fluids and medications for dehydration, vomiting. 10/24/16 05:30 Patient still tachycardic, vomiting again. Discussed with Dr. Pittman, hospitalist, he recommends 10 mg haldol and re-evaluate. (DEVONTE LYNN) 10/24/16 12:48 pt was discussed with Dr. Polanco, hospitalist due to persistent tachycardia. She states that he's "always like that, that's normal for him" and to send him home after giving him ativan, valium and haldol cocktail... that did seem to bring his heart rate down from high 140s to 118bpm. This is more his normal as he is usually tachycardic at baseline. Spoke with my attending Dr. Hendricks who agrees pt can be discharged at this time. (BLESSING CASEY) - Vital Signs Vital signs: Temp Pulse Resp BP Pulse Ox 98 F 26 H 145/92 H 100 10/24/16 05:00 10/24/16 12:01 10/24/16 12:01 10/24/16 07:00 - Laboratory Laboratory results interpreted by me: 10/23/16 10/23/16 10/23/16 22:55 22:55 23:44 RBC 5.61 H RDW 14.8 H VBG pH 7.47 H VBG pCO2 27.4 L VBG HCO3 19.4 L Sodium 151.3 H Carbon Dioxide 19 L Anion Gap 32 H Glucose 361 H POC Glucose Alkaline Phosphatase 185 H 10/24/16 03:22 RBC RDW VBG pH VBG pCO2 VBG HCO3 Sodium Carbon Dioxide Anion Gap Glucose POC Glucose 253 H Alkaline Phosphatase Discharge <DEVONTE LYNN - Last Filed: 10/24/16 06:19> <BLESSING CASEY - Last Filed: 10/24/16 12:52> - Discharge Clinical Impression: Alcohol withdrawal Condition: Stable Disposition: HOME, SELF-CARE Additional Instructions: stop drinking alcohol! Return immediately for any new or worsening symptoms. Follow up with primary care provider, call tomorrow to make followup appointment.
[2016-10-23 23:24] LABS: ABSOLUTE LYMPHOCYTES (AUTO) 1.6 10^3/uL (0.5-4.7); ABSOLUTE MONOCYTES (AUTO) 0.3 10^3/uL (0.1-1.4); ABSOLUTE NEUT (AUTO) 4.3 10^3/uL (1.7-8.2); BASOPHILS % (AUTO) 0.7 % (0-2); HEMATOCRIT 48.1 % (37.9-51.0); HEMOGLOBIN 15.8 g/dL (13.5-17.0); HGB HCT DIFFERENCE -0.7; LYMPHOCYTES % (AUTO) 25.1 % (13-45); MEAN CORPUSCULAR HEMOGLOBIN 28.1 pg (27.0-33.4); MEAN CORPUSCULAR HGB CONC 32.8 g/dL (32.0-36.0); MEAN CORPUSCULAR VOLUME 86 fl (80-97); MONOCYTES % (AUTO) 5.3 % (3-13); RED BLOOD COUNT 5.61 10^6/uL (4.35-5.55); RED CELL DISTRIBUTION WIDTH 14.8 % (11.5-14.0); SEGMENTED NEUTROPHILS % (AUTO) 68.9 % (42-78); VENOUS BLOOD BASE EXCESS -2.5 mmol/L; VENOUS BLOOD HCO3 19.4 mmol/L (20-32); VENOUS BLOOD PCO2 27.4 mmHg (35-63); VENOUS BLOOD PH 7.47 (7.30-7.42); WHITE BLOOD COUNT 6.2 10^3/uL (4.0-10.5)
[2016-10-24 00:03] LABS: ALANINE AMINOTRANSFERASE 47 U/L (21-72); ALBUMIN 4.8 g/dL (3.5-5.0); ALKALINE PHOSPHATASE 185 U/L (38-126); ASPARTATE AMINO TRANSFERASE 42 U/L (17-59); BILIRUBIN,DIRECT 0.3 mg/dL (0.0-0.4); BILIRUBIN,TOTAL 0.3 mg/dL (0.2-1.3); BLOOD UREA NITROGEN 11 mg/dL (7-20); CALCIUM 9.4 mg/dL (8.4-10.2); CREATININE RESULT 0.94 mg/dL (0.52-1.25); GLUCOSE 361 mg/dL (75-110); TOTAL PROTEIN 7.6 g/dL (6.3-8.2)
[2016-10-24 00:12] LABS: CARBON DIOXIDE 19 mmol/L (22-30); CHLORIDE 100 mmol/L (98-107); SODIUM 151.3 mmol/L (137-145)
[2016-10-24 00:15] LABS: ANION GAP 32 (5-19)
[2016-10-24] MEDS ORDERED: NORMAL SALINE 1000 ML 1,000 ML IV ONE ×3 (00:20→03:02)
[2016-10-24] MEDS ORDERED: PROMETHAZINE HCL INJ 25 MG/1 ML VIAL IM ONE (00:51)
[2016-10-24] MEDS ORDERED: PROMETHAZINE HCL INJ 50 MG/1 ML VIAL ONE (01:29)
[2016-10-24] MEDS ORDERED: LIDOCAINE 2% INJ (20 MG/ML) 20 ML MDV INJ ONE (02:50)
[2016-10-24] MEDS ORDERED: DIAZEPAM INJ 10 MG/2 ML DISP.SYRIN IV ONE (03:02)
[2016-10-24] MEDS ORDERED: FAMOTIDINE 20 MG TABLET PO ONE (03:03)
[2016-10-24] MEDS ORDERED: LORAZEPAM INJ 2 MG/1 ML VIAL IV ONE ×2 (04:39→09:00)
[2016-10-24] MEDS ORDERED: HALOPERIDOL LACTATE INJ 5 MG/1 ML VIAL IM ONE (05:51)
--- NOTE | 2016-10-24 08:20 | EKG REPORT ---
SEVERITY:- BORDERLINE ECG - SINUS TACHYCARDIA PROBABLE LEFT ATRIAL ABNORMALITY : Confirmed by: Artemio Kiser MD 24-Oct-2016 08:19:52
[2016-10-24] MEDS ORDERED: DIAZEPAM 5 MG TABLET PO ONE (09:01)
[2016-10-24] MEDS ORDERED: HALOPERIDOL 5 MG TABLET PO ONE (09:05)
[2016-10-24] MEDS ORDERED: THIAMINE HCL 100 MG in NORMAL SALINE 50 ML IV ONE (10:47)
[2016-10-24] MEDS: MAGNESIUM SULFATE/D5W 100 ML IV SCH ×2 (10:58→12:58)
[2016-10-24 14:03] VITALS: BP 151/100
== END 2016-10-24 14:02 | disposition home or self-care (01) ==
LOC: ER 22:11
DX: F10.239 Alcohol dependence with withdrawal, unspecified (principal); R11.2 Nausea with vomiting, unspecified
CPT/HCPCS: 93005; 96376; 99284; 96375; 96365; 36415; 82962; 80307; 83690; 85025; 80053; 82803; 93010; J3490; J3360; J1630; J2060 ×2; J3475; J2550; J3411; J7030 ×2; J2405

== ENCOUNTER 2016-11-10 17:37 | Inpatient (IN) | payer OTHER, MEDICARE ==
[2016-11-10] MEDS ORDERED: RINGERS SOLUTION,LACTATED 1,000 ML IV PRN ×2 (18:06→23:04)
[2016-11-10] MEDS ORDERED: ONDANSETRON HCL INJ/PF 4 MG/2 ML SDV IV ONE (18:06)
--- NOTE | 2016-11-10 18:33 | ER Document Report ---
ED GI/ - General Mode of Arrival: Medic Information source: Patient, [facility] Records TRAVEL OUTSIDE OF THE [place] IN LAST 30 DAYS: No - HPI Patient complains to provider of: Abdominal pain Timing/Duration: Persistent Quality of pain: Cramping Similar symptoms previously: Yes Recently seen / treated by doctor: Yes <LANI HAMMONDS - Last Filed: 11/10/16 23:35> <VIRAJ CHILDRESS - Last Filed: 11/23/16 11:15> - General Stated Complaint: VOMITING Time Seen by Provider: 11/10/16 18:04 Notes: Patient is a 35-year-old male who presents to the emergency department today with complaints of abdominal pain. Patient is well-known to this emergency department for frequent visits with similar presentation. Patient states he consumed "2 mad dog " prior to arrival. Patient states he did not run out of insulin, but he has not taken it since yesterday. Patient states he has not slept in 4 days because he "cannot take the pain". Patient complains of abdominal cramping. (LANI AHMMONDS) - Related Data Allergies/Adverse Reactions: No Known Allergies Allergy (Verified 10/24/16 08:11) Home Medications: Current Home Medications Amlodipine Besylate [Norvasc 10 mg Tablet] 10 mg PO DAILY 11/11/16 [History] Carbamazepine [Tegretol 200 Mg Tablet] 600 mg PO QHS 11/11/16 [History] Diclofenac Sodium [Voltaren 50 Mg Tablet.Dr] 50 mg PO Q8 11/11/16 [History] Folic Acid 1 mg PO DAILY 11/11/16 [History] Gabapentin [Neurontin 300 mg Capsule] 300 mg PO Q12 11/11/16 [History] Glipizide [Glocotrol 5 Mg Tablet] 5 mg PO BIDACBS 11/11/16 [History] Insulin Aspart [Novolog Flexpen] 5 unit SUBCUT AC 11/11/16 [History] Insulin Glargine,Hum.rec.anlog [Lantus Solostar] 30 unit SQ Q12 11/11/16 [ History] Lamotrigine [Lamictal] 50 mg PO QHS 11/11/16 [History] Levetiracetam [Keppra 500 mg Tablet] 250 mg PO Q12 11/11/16 [History] Levothyroxine Sodium [Synthroid 50 Mcg Tablet] 50 mcg PO Q6AM 11/11/16 [History] Metoprolol Tartrate [Lopressor 25 mg Tablet] 25 mg PO Q12 11/11/16 [History] Multivitamin with Minerals [Icaps Plus] 1 tab PO DAILY 11/11/16 [History] Oxycodone HCl [Oxy-Ir 5 mg Tablet] 5 mg PO Q12HP PRN 11/11/16 [History] Pantoprazole Sodium [Protonix] 40 mg PO DAILY 11/11/16 [History] Quetiapine Fumarate [Seroquel] 300 mg PO QHS 11/11/16 [History] Sertraline HCl [Zoloft] 200 mg PO DAILY 11/11/16 [History] Sodium Bicarbonate [Sodium Bicarbonate 650 mg Tablet] 650 mg PO BID 11/11/16 [ History] Thiamine HCl [Thiamine 100 mg Tablet] 100 mg PO DAILY 11/11/16 [History] Vilazodone Hydrochloride [Viibryd] 40 mg PO DAILY 11/11/16 [History] Past Medical History - General Information source: [facility] Records Cannot obtain history due to: Intoxicated - Social History Smoking Status: Smoker,Current Status Unk Lives with: Alone Family History: Arthritis, DM, Hyperlipidemia, Hypertension, Malignancy, Other - Past Medical History Cardiac Medical History: Reports: Hx Coronary Artery Disease, Hx Heart Attack, Hx Hypercholesterolemia, Hx Hypertension Neurological Medical History: Reports: Hx Seizures Endocrine Medical History: Reports: Hx Diabetes Mellitus Type 1, Hx Diabetes Mellitus Type 2 GI Medical History: Reports: Hx Cirrhosis, Hx Gastritis, Hx Gastroesophageal Reflux Disease Musculoskeltal Medical History: Reports Hx Arthritis, Reports Hx Musculoskeletal Deformity, Reports Hx Musculoskeletal Trauma Psychiatric Medical History: Reports: Hx Depression, Hx Personality Disorder, Hx Post Traumatic Stress Disorder Traumatic Medical History: Reports: Hx Traumatic Brain Injury - x2, INJURED IN I.E.D. EXPLOSION Past Surgical History: Reports: Hx Appendectomy, Hx Orthopedic Surgery - R hip replacement d/t necrosis - Immunizations Immunizations up to date: No Hx Diphtheria, Pertussis, Tetanus Vaccination: Yes <LANI HAMMONDS - Last Filed: 11/10/16 23:35> Review of Systems - Review of Systems Constitutional: No symptoms reported EENT: No symptoms reported Cardiovascular: No symptoms reported Respiratory: No symptoms reported Gastrointestinal: See HPI, Abdominal pain, Vomiting Genitourinary: No symptoms reported Male Genitourinary: No symptoms reported Musculoskeletal: No symptoms reported Skin: No symptoms reported Hematologic/Lymphatic: No symptoms reported Neurological/Psychological: No symptoms reported -: Yes All other systems reviewed and negative <LANI HAMMONDS - Last Filed: 11/10/16 23:35> Physical Exam <LANI HAMMONDS - Last Filed: 11/10/16 23:35> <VIRAJ CHILDRESS - Last Filed: 11/23/16 11:15> - Vital signs Vitals: Resp Pulse Ox 24 H 94 11/10/16 18:31 11/10/16 18:31 - Notes Notes: Physical Exam: General: Alert, appears intoxicated which is consistent with patient's previous visits according to records. Vomit on floor upon entry. HEENT: Normocephalic. Atraumatic. PERRL. Extraocular movements intact. Oropharynx clear. Neck: Supple. Non-tender. Respiratory: No respiratory distress. Clear and equal breath sounds bilaterally. Cardiovascular: Tachycardic. Abdominal: Complains of abdominal pain. No point tenderness, mild diffuse tenderness. No distension. Normal Bowel Sounds. Back: Non-tender. No deformity or step off. Extremities: Moves all four extremities. Upper extremities: Normal inspection. Normal ROM. Lower extremities: Normal inspection. No edema. Normal ROM. Neurological: Normal cognition. AAOx4. Normal speech. Psychological: Normal affect. Normal Mood. Skin: Warm. Dry. Normal color. (LANI HAMMONDS) Course - Laboratory Result Diagrams: 11/10/16 21:08 11/10/16 21:08 <LANI HAMMONDS - Last Filed: 11/10/16 23:35> - Laboratory Result Diagrams: 11/11/16 07:30 11/12/16 05:11 <VIRAJ CHILDRESS - Last Filed: 11/23/16 11:15> - Re-evaluation Re-evalutation: 11/10/16 23:04 Patient presents emerged from elevated blood sugar alcohol intoxication and history of DKA recurrently. Patient is seen and evaluated with elevated blood sugar states he has been vomiting for a few days drinking mad dog drank approximately an hour prior to arrival couple episodes of vomiting with no diarrhea or blood. [facility] is noncompliant with alcoholism and his insulin medication. Patient complains of some generalized abdominal pain. He is tachycardic on arrival not hypotensive not actively vomiting mild generalized abdominal tenderness without guarding rebound rigidity pulsatile dullness or hernias. Skin is warm dry normal mental status. Patient in acute diabetic ketoacidosis 3 bags of LR ordered insulin drip anion gap noted. Patient also given Zofran. Serial examinations not actively vomiting belly soft no acute surgical abdomen. Patient admitted to the [facility] unit improved condition with acute diabetic ketoacidosis no active signs of withdrawal given thiamine and folate. 11/11/16 02:24 (VIRAJ CHILDRESS) - Vital Signs Vital signs: Temp Pulse Resp BP Pulse Ox 98.3 F 104 H 20 144/83 H 96 11/12/16 03:37 11/12/16 07:00 11/12/16 03:37 11/12/16 03:37 11/12/16 03:37 - Laboratory Laboratory results interpreted by me: 11/10/16 11/10/16 11/10/16 20:20 21:08 21:08 RDW 15.8 H Lymphocytes % 11.9 L Carbonic Acid ABG pH ABG pCO2 ABG pO2 Sodium 130.6 L Potassium 3.3 L Chloride 80 L Carbon Dioxide 18 L Anion Gap 33 H BUN 6 L Glucose 449 H* Direct Bilirubin 0.5 H AST 65 H Alkaline Phosphatase 187 H Urine Protein 30 H Urine Glucose (UA) >=500 H Urine Ketones TRACE H 11/10/16 21:15 RDW Lymphocytes % Carbonic Acid 1.01 L ABG pH 7.46 H ABG pCO2 33.7 L ABG pO2 69.1 L Sodium Potassium Chloride Carbon Dioxide Anion Gap BUN Glucose Direct Bilirubin AST Alkaline Phosphatase Urine Protein Urine Glucose (UA) Urine Ketones - EKG Interpretation by Me Additional EKG results interpreted by me: 11/10/16 18:54 EKG interpreted by myself there was a sinus tachycardia [address] segment elevation or depression 11/11/16 02:25 (VIRAJ CHILDRESS) Critical Care Note - Critical Care Note Total time excluding time spent on procedures (mins): 65 <VIRAJ CHILDRESS - Last Filed: 11/23/16 11:15> Discharge <LANI HAMMONDS - Last Filed: 11/10/16 23:35> - Discharge Admitting Provider: Hospitalist Unit Admitted: I[facility]U <VIRAJ CHILDRESS - Last Filed: 11/23/16 11:15> - Discharge Clinical Impression: acute dka, Alcohol abuse Condition: Stable Disposition: ADMITTED INPATIENT Scribe Attestation: 11/10/16 22:58 I personally performed the services described in the documentation reviewed the documentation recorded by my scribe in my presence and it accurately and completely records my words and actions (VIRAJ CHILDRESS) Scribe Documentation - Scribe Written by Laila:: Laila Weiner, 11/10/2016 [id number] acting as scribe for :: Lenny <LANI HAMMONDS - Last Filed: 11/10/16 23:35>
[2016-11-10 20:43] LABS: APPEARANCE,URINE CLEAR; BILIRUBIN,URINE NEGATIVE (NEGATIVE); GLUCOSE, URINE >=500 mg/dL (NEGATIVE); KETONES,URINE TRACE mg/dL (NEGATIVE); LEUKOCYTE ESTERASE,URINE NEGATIVE (NEGATIVE); NITRITE,URINE NEGATIVE (NEGATIVE); PROTEIN,URINE 30 mg/dL (NEGATIVE); URINE SPECIFIC GRAVITY 1.032; UROBILINOGEN,URINE NEGATIVE mg/dL (<2.0)
[2016-11-10 21:01] LABS: URINE BARBITURATES SCREEN NEGATIVE; URINE METHADONE SCREEN NEGATIVE; URINE OPIATES LOW NEGATIVE; URINE PHENCYCLIDINE SCREEN NEGATIVE
[2016-11-10 21:16] LABS: ABSOLUTE LYMPHOCYTES (AUTO) 0.8 10^3/uL (0.5-4.7); ABSOLUTE MONOCYTES (AUTO) 0.7 10^3/uL (0.1-1.4); ABSOLUTE NEUT (AUTO) 5.5 10^3/uL (1.7-8.2); BASOPHILS % (AUTO) 0.7 % (0-2); EOSINOPHILS % (AUTO) 0.1 % (0-6); HEMATOCRIT 40.4 % (37.9-51.0); HEMOGLOBIN 13.6 g/dL (13.5-17.0); HGB HCT DIFFERENCE 0.4; LYMPHOCYTES % (AUTO) 11.9 % (13-45); MEAN CORPUSCULAR HEMOGLOBIN 28.3 pg (27.0-33.4); MEAN CORPUSCULAR HGB CONC 33.6 g/dL (32.0-36.0); MEAN CORPUSCULAR VOLUME 84 fl (80-97); MONOCYTES % (AUTO) 10.3 % (3-13); RED BLOOD COUNT 4.79 10^6/uL (4.35-5.55); RED CELL DISTRIBUTION WIDTH 15.8 % (11.5-14.0); WHITE BLOOD COUNT 7.1 10^3/uL (4.0-10.5)
[2016-11-10 21:29] LABS: ARTERIAL BLOOD BASE EXCESS 0.5 mmol/L; ARTERIAL BLOOD O2 SATURATION 94.9 % (94-98)
[2016-11-10 21:29] LABS: ALANINE AMINOTRANSFERASE 48 U/L (21-72); ALBUMIN 4.9 g/dL (3.5-5.0); ALCOHOL 176 mg/dL (NONE DETECTED); ALKALINE PHOSPHATASE 187 U/L (38-126); ASPARTATE AMINO TRANSFERASE 65 U/L (17-59); BILIRUBIN,DIRECT 0.5 mg/dL (0.0-0.4); BILIRUBIN,TOTAL 0.8 mg/dL (0.2-1.3); BLOOD UREA NITROGEN 6 mg/dL (7-20); CALCIUM 9.6 mg/dL (8.4-10.2); CARBON DIOXIDE 18 mmol/L (22-30); CHLORIDE 80 mmol/L (98-107); CREATININE RESULT 0.94 mg/dL (0.52-1.25); LIPASE 25.8 U/L (23-300); POTASSIUM 3.3 mmol/L (3.6-5.0); TOTAL PROTEIN 7.5 g/dL (6.3-8.2)
[2016-11-10 21:38] LABS: SODIUM 130.6 mmol/L (137-145)
[2016-11-10 21:39] LABS: ANION GAP 33 (5-19)
[2016-11-10 21:40] LABS: GLUCOSE 449 mg/dL (75-110)
[2016-11-10] MEDS ORDERED: INSULIN REG, HUMAN 100 UNIT/ML 3 ML VIAL (PYX) IV ONE (22:05)
[2016-11-10] MEDS ORDERED: RINGERS SOLUTION,LACTATED 1,000 ML IV ONE (22:05)
--- NOTE | 2016-11-10 22:40 | EKG REPORT ---
SEVERITY:- ABNORMAL ECG - SINUS TACHYCARDIA PROBABLE LEFT ATRIAL ABNORMALITY BORDERLINE INFERIOR Q WAVES ABNORMAL T, CONSIDER ISCHEMIA, LATERAL LEADS : Confirmed by: Sonu Ken 10-Nov-2016 22:39:16
[2016-11-10] MEDS ORDERED: THIAMINE HCL 100 MG, FOLIC ACID 1 MG in NORMAL SALINE 50 ML IV SCH ×2 (23:00)
[2016-11-10] MEDS ORDERED: ONDANSETRON HCL INJ/PF 4 MG/2 ML SDV ONE (23:01)
[2016-11-10] MEDS ORDERED: RINGERS SOLUTION,LACTATED 2,000 ML IV ONE (23:04)
[2016-11-10] MEDS ORDERED: GLUCAGON,HUMAN RECOMB 1 MG INJ IM PRN (23:05)
[2016-11-10] MEDS ORDERED: DEXTROSE 40% GEL 15 GM TUBE PO PRN ×2 (23:05)
[2016-11-10] MEDS ORDERED: NORMAL SALINE 100 ML with INSULIN REGULAR, HUMAN 100 UNIT IV PRN ×2 (23:05)
[2016-11-10] MEDS ORDERED: DEXTROSE 50%-WATER 25 GM/50 ML DISP.SYRIN IV PRN ×2 (23:05)
--- NOTE | 2016-11-10 23:25 | RADIOLOGY REPORT (SQ) ---
EXAM DESCRIPTION: CHEST SINGLE VIEW COMPLETED DATE/TIME: 11/10/2016 11:17 pm REASON FOR STUDY: DKA COMPARISON: 10/16/2016 EXAM PARAMETERS: NUMBER OF VIEWS: One view. TECHNIQUE: Single frontal radiographic view of the chest acquired. RADIATION DOSE: NA LIMITATIONS: None. FINDINGS: LUNGS AND PLEURA: No opacities, masses or pneumothorax. No pleural effusion. MEDIASTINUM AND HILAR STRUCTURES: No masses. Contour normal. HEART AND VASCULAR STRUCTURES: Heart normal in size. Normal vasculature. BONES: No acute findings. HARDWARE: None in the chest. OTHER: No other significant finding. IMPRESSION: NO ACUTE RADIOGRAPHIC FINDING IN THE CHEST. TECHNICAL DOCUMENTATION: JOB ID: [id number]
[2016-11-10] MEDS ORDERED: THIAMINE HCL INJ 200 MG/2 ML VIAL ONE (23:42)
[2016-11-10] MEDS ORDERED: FOLIC ACID INJ 5 MG/1 ML 10 ML VIAL ONE (23:43)
[2016-11-11 00:16] LABS: BLOOD UREA NITROGEN 5 mg/dL (7-20); CALCIUM 9.3 mg/dL (8.4-10.2); CARBON DIOXIDE 18 mmol/L (22-30); CREATININE RESULT 0.79 mg/dL (0.52-1.25); GLUCOSE 359 mg/dL (75-110)
[2016-11-11 00:19] LABS: POTASSIUM 3.3 mmol/L (3.6-5.0)
[2016-11-11 00:25] LABS: CHLORIDE 82 mmol/L (98-107); SODIUM 129.9 mmol/L (137-145)
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
[2016-11-11 00:27] LABS: ANION GAP 30 (5-19); MAGNESIUM 1.3 mg/dL (1.6-2.3)
[2016-11-11] MEDS ORDERED: LORAZEPAM INJ 2 MG/1 ML VIAL ONE (01:44)
[2016-11-11] MEDS ORDERED: HYDROMORPHONE HCL INJ/PF 2 MG/ML AMPULE ONE (01:51)
[2016-11-11] MEDS ORDERED: LORAZEPAM INJ 2 MG/1 ML VIAL (TAPER DOSING) IV SCH ×2 (02:00→02:30)
[2016-11-11] MEDS ORDERED: HYDROMORPHONE HCL INJ/PF 2 MG/ML AMPULE IV ONE (02:15)
[2016-11-11] MEDS ORDERED: LORAZEPAM INJ 2 MG/1 ML VIAL IV ONE (02:15)
[2016-11-11] MEDS ORDERED: LIDOCAINE 2% INJ-PF (100 MG/5 ML) SYRINGE ONE (02:18)
[2016-11-11] MEDS ORDERED: LIDOCAINE 1% INJ-PF (10 MG/ML) 30 ML SDV ONE (02:24)
[2016-11-11 03:38] LABS: ANION GAP 16 (5-19); BLOOD UREA NITROGEN 7 mg/dL (7-20); CALCIUM 8.9 mg/dL (8.4-10.2); CARBON DIOXIDE 27 mmol/L (22-30); CHLORIDE 84 mmol/L (98-107); GLUCOSE 315 mg/dL (75-110); POTASSIUM 3.6 mmol/L (3.6-5.0); SODIUM 126.7 mmol/L (137-145)
[2016-11-11] MEDS: MAGNESIUM SULFATE/D5W 1 GM/100 ML RTUPB IV SCH ×2 (03:40→06:25)
[2016-11-11 03:43] LABS: PARTIAL THROMBOPLASTIN TIME 24.1 SEC (23.5-35.8); PROTHROMBIN TIME 13.3 SEC (11.4-15.4)
--- NOTE | 2016-11-11 04:13 | OPERATIVE REPORT E ---
Operative Report NAME: BREE FISHMAN : 1980 AGE: 35Y DATE OF SURGERY: 11/11/2016 ROOM: 302 PREOPERATIVE DIAGNOSIS: 1. Poor veins for intravenous access. 2. Ethanol intoxication. POSTOPERATIVE DIAGNOSIS: 1. Poor veins for intravenous access. 2. Ethanol intoxication. OPERATION: Placement of left internal jugular triple lumen catheter under ultrasound guidance. SURGEON: NATTY PHELPS M.D. ANESTHESIA: Local with IV pain medications and sedation. PROCEDURE: Patient was given IV Ativan and Dilaudid. Patient was then placed in Trendelenburg position and the left chest and neck were then prepped and draped in the usual sterile fashion. Local anesthesia infiltrated the left infraclavicular area and several attempts to cannulate the left subclavian vein were done but were unsuccessful. At this time, the left internal jugular vein was then identified with the use of the ultrasound. Local anesthesia infiltrated along the left neck and the internal jugular vein was then punctured percutaneously. A guidewire was then placed through the needle towards the superior vena cava. The needle was removed and the puncture site enlarged with an 11 blade. A dilator was then passed through the guidewire and dilated the puncture site towards the superior vena cava. The dilator was removed and a triple lumen catheter was then passed through the guidewire into the superior vena cava to about 17 cm. Guidewire was removed and all three ports of the catheter were then aspirated of blood easily and infused saline easily. The catheter was then anchored to the skin with 3-0 silk. Biopatch was then placed on the insertion site and a sterile transparent dressing placed around the catheter. Patient tolerated the procedure well. We have to get extra Xylocaine to continue the procedure and get the ultrasound machine together with the probe placed in a sterile shield. At any rate, a chest x-ray will be obtained. DICTATING PHYSICIAN: NATTY PHELPS M.D. [id number] PHY#: [id number] ID: [id number] JOB#: [id number] ACCT: [id number] cc:NATTY PHELPS M.D. > [facility]
[2016-11-11] MEDS: LORAZEPAM INJ 2 MG/1 ML VIAL (TAPER DOSING) IV SCH ×4 (04:24→22:45)
--- NOTE | 2016-11-11 04:37 | RADIOLOGY REPORT (SQ) ---
EXAM DESCRIPTION: CHEST SINGLE VIEW COMPLETED DATE/TIME: 11/11/2016 4:18 am REASON FOR STUDY: Central line placement COMPARISON: Chest x-ray 11/10/2016. EXAM PARAMETERS: NUMBER OF VIEWS: One view. TECHNIQUE: Single frontal radiographic view of the chest acquired. RADIATION DOSE: NA LIMITATIONS: None. FINDINGS: LUNGS AND PLEURA: No consolidation, pneumothorax or pleural effusion. MEDIASTINUM AND HILAR STRUCTURES: No masses. Contour normal. HEART AND VASCULAR STRUCTURES: Heart normal in size. No overt vascular congestion. BONES: No acute findings. HARDWARE: Interval placement of a left IJ central line with the tip overlying the region of the SVC. IMPRESSION: No pneumothorax status post central line placement. TECHNICAL DOCUMENTATION: JOB ID: [id number]
[2016-11-11] MEDS ORDERED: NORMAL SALINE 1000 ML 1,000 ML IV PRN (04:46)
[2016-11-11] MEDS ORDERED: DEXTROSE 5%-NORMAL SALINE 1,000 ML IV PRN (04:55)
[2016-11-11] MEDS: HYDROMORPHONE HCL 2 MG TABLET PO PRN ×5 (05:41→22:44)
[2016-11-11] MEDS: POTASSI CL 20 MEQ/50 ML RIDER 20 MEQ/50 ML RTUPB IV SCH ×2 (06:15→09:02)
[2016-11-11] MEDS ORDERED: DEXTROSE 5%-1/2 NORMAL SALINE 1,000 ML IV PRN (08:21)
[2016-11-11 08:35] LABS: ABSOLUTE BASOPHILS # (AUTO) 0.1 10^3/uL (0.0-0.2); ABSOLUTE LYMPHOCYTES (AUTO) 2.5 10^3/uL (0.5-4.7); ABSOLUTE MONOCYTES (AUTO) 0.9 10^3/uL (0.1-1.4); BASOPHILS % (AUTO) 0.9 % (0-2); EOSINOPHILS % (AUTO) 0.3 % (0-6); HEMATOCRIT 30.7 % (37.9-51.0); HGB HCT DIFFERENCE 0.8; LYMPHOCYTES % (AUTO) 38.5 % (13-45); MEAN CORPUSCULAR HEMOGLOBIN 28.1 pg (27.0-33.4); MEAN CORPUSCULAR HGB CONC 34.2 g/dL (32.0-36.0); MEAN CORPUSCULAR VOLUME 82 fl (80-97); MONOCYTES % (AUTO) 14.6 % (3-13); RED BLOOD COUNT 3.73 10^6/uL (4.35-5.55); RED CELL DISTRIBUTION WIDTH 15.9 % (11.5-14.0); SEGMENTED NEUTROPHILS % (AUTO) 45.7 % (42-78); WHITE BLOOD COUNT 6.5 10^3/uL (4.0-10.5)
[2016-11-11 08:36] LABS: HEMOGLOBIN 10.5 g/dL (13.5-17.0)
[2016-11-11 08:54] LABS: ANION GAP 7 (5-19); BLOOD UREA NITROGEN 6 mg/dL (7-20); CALCIUM 8.7 mg/dL (8.4-10.2); CARBON DIOXIDE 36 mmol/L (22-30); CHLORIDE 87 mmol/L (98-107); CREATININE RESULT 0.72 mg/dL (0.52-1.25); GLUCOSE 41 mg/dL (75-110); SODIUM 129.9 mmol/L (137-145)
[2016-11-11 09:00] LABS: POTASSIUM 2.7 mmol/L (3.6-5.0)
[2016-11-11] MEDS: ENOXAPARIN SODIUM INJ 40 MG/0.4 ML DISP.SYRIN SUBCUT SCH (09:02)
[2016-11-11] MEDS ORDERED: INSULIN GLARGINE,HUM.REC.ANLOG 1,000 UNIT/10 ML UNIT SUBCUT SCH (10:15)
[2016-11-11] MEDS ORDERED: POTASSI CL 20 MEQ/50 ML RIDER 50 ML IV SCH (10:15)
[2016-11-11] MEDS ORDERED: INSULIN GLARGINE,HUM.REC.ANLOG 300 UNIT/3 ML INSULN.PEN SUBCUT ONE (11:00)
--- NOTE | 2016-11-11 11:48 | PROGRESS NOTE E ---
Progress Note NAME: BREE FISHMAN : 1980 AGE: 35Y DATE: 11/11/2016 ROOM: 302 SUBJECTIVE: The patient is currently lying in bed. He will awaken. He states that he "feels miserable." The patient denies any specific pain at this time. The patient's blood sugars had dropped to 41 and the patient requested food. Insulin drip was stopped. Dextrose was given. I made the patient aware that his dumpman, Ever from the [facility], had wanted to communicate regarding the patient and the patient did give me permission to discuss the case with him. Discussed the case with the patient's dumpman at the [facility] who once again is trying to make arrangements for the patient to have inpatient substance abuse treatment. Did agree to contact him tomorrow to update him on the patient's progress medically and hopefully we can get him at a state where he can have inpatient substance abuse treatment. REVIEW OF SYSTEMS: Rest of review of systems negative. MEDICATIONS: Medications have been reviewed. OBJECTIVE: GENERAL: The patient is a 35-year-old male who is sleeping, but will awaken, answers questions appropriately, does not appear to be in any acute distress. VITAL SIGNS: Temperature is 97.9, pulse 105, respirations 16, blood pressure is 152/92, oxygen saturation 96% on room air. SKIN: Warm and dry. No rash. She is not diaphoretic. HEENT: Pupils equal, round, reactive to light and accommodation. Conjunctiva is pink. No JVP. CARDIOVASCULAR SYSTEM: Heart is regular. There is no murmur or rub. CHEST: Clear, symmetrical, unlabored. ABDOMEN: Soft, nontender, nondistended. BACK: No CVA tenderness or sacral edema. EXTREMITIES: No clubbing, cyanosis, edema. PSYCHIATRIC: Patient is quite sleepy, but has not expressed suicidal/homicidal ideations. DIAGNOSTICS: Lab values are as follows: Hematology obtained on 11/11/2016: WBCs are 6.5, hemoglobin is 10.9, hematocrit is 30.7, platelet count is 184,000. Chemistry obtained on 11/11/2016: Sodium is 129, potassium 2.7, chloride is 87, carbon dioxide 36, BUN 6, creatinine is 0.72, glucose 130, calcium is 8.7. IMPRESSION AND PLAN: 1. DIABETIC KETOACIDOSIS. THE PATIENT DOES PRESENT WITH A PICTURE OF STARVATION ACIDOSIS, MOST LIKELY DUE TO HIS ALCOHOL INTAKE. The patient's gap is closed. His blood sugars actually have been low. Therefore, will hang IV fluids with dextrose, encourage p.o. intake, and follow. 2. ELECTROLYTE DERANGEMENT SECONDARY TO NUMBER 1. Will replace potassium. Sodium is slowly improving. Will monitor and follow. 3. ACUTE ALCOHOL INTOXICATION. The patient has no evidence of DTs at this time, however, do have p.r.n. medications available. Will continue to hydrate and follow. 4. ALCOHOL DEPENDENCY. Will continue banana bag for now. 5. CHRONIC PANCREATITIS. The patient denies symptoms at this time. 6. HYPERLIPIDEMIA. Will continue home medicine. 7. POSTTRAUMATIC STRESS DISORDER. Will continue the patient's home medication. 8. SEIZURE DISORDER. Most likely, this is all from withdrawal seizures, but will continue the patient's home medications. 9. TOBACCO DEPENDENCY. Will continue p.r.n. nicotine patch. 10. CHRONIC PAIN. The patient is not currently on opiates. DISPOSITION: The patient is a FULL CODE. Pending patient's symptomatology and diagnostic findings, will re-evaluate in the a.m. Time spent on this followup including assessment, plan, physical examination, patient education, and collaboration is 35 minutes. DICTATING PHYSICIAN: MARGARITO ALTMAN NP [id number] PHY#: [id number] ID: [id number] JOB#: [id number] ACCT: [id number] cc: >
[2016-11-11] MEDS: INSULIN LISPRO 100 UNIT/ML 3 ML VIAL SUBCUT PRN ×2 (11:50→16:40)
[2016-11-11 13:51] LABS: ANION GAP 6 (5-19); BLOOD UREA NITROGEN 6 mg/dL (7-20); CALCIUM 8.8 mg/dL (8.4-10.2); CARBON DIOXIDE 35 mmol/L (22-30); CHLORIDE 87 mmol/L (98-107); CREATININE RESULT 0.72 mg/dL (0.52-1.25); GLUCOSE 170 mg/dL (75-110); POTASSIUM 3.1 mmol/L (3.6-5.0); SODIUM 128.3 mmol/L (137-145)
[2016-11-11] MEDS: POTASSI CL 20 MEQ/D5NS 1L 1,000 ML IV PRN (16:38)
[2016-11-11] MEDS ORDERED: NORMAL SALINE 1000 ML 1,000 ML with THIAMINE HCL 100 MG, MVI, ADULT NO.1 WITH VIT K 10 ... IV SCH ×4 (18:00)
[2016-11-11] MEDS ORDERED: INSULIN GLARGINE,HUM.REC.ANLOG 300 UNIT/3 ML INSULN.PEN SUBCUT SCH (22:00)
[2016-11-12] MEDS: HYDROMORPHONE HCL 2 MG TABLET PO PRN ×2 (02:48→06:33)
[2016-11-12] MEDS: POTASSI CL 20 MEQ/D5NS 1L 1,000 ML IV PRN (03:34)
[2016-11-12 04:52] VITALS: BP 144/83
[2016-11-12 05:40] LABS: ANION GAP 9 (5-19); BLOOD UREA NITROGEN 3 mg/dL (7-20); CALCIUM 9.1 mg/dL (8.4-10.2); CARBON DIOXIDE 28 mmol/L (22-30); CHLORIDE 98 mmol/L (98-107); CREATININE RESULT 0.72 mg/dL (0.52-1.25); GLUCOSE 71 mg/dL (75-110); MAGNESIUM 1.6 mg/dL (1.6-2.3); SODIUM 134.5 mmol/L (137-145)
[2016-11-12 05:45] LABS: POTASSIUM 2.9 mmol/L (3.6-5.0)
[2016-11-12] MEDS: POTASSIUM CHLORIDE 20 MEQ/15 ML UDCUP PO SCH ×2 (06:35→09:00)
[2016-11-12] MEDS ORDERED: ONDANSETRON 4 MG TAB.RAPDIS PO PRN (08:51)
[2016-11-12] MEDS ORDERED: OXYCODONE HCL IR 5 MG TABLET PO PRN (08:52)
[2016-11-12] MEDS ORDERED: KETOROLAC TROMETHAMINE INJ/PF 30 MG/1 ML SDV IV PRN (08:52)
[2016-11-12] MEDS: ENOXAPARIN SODIUM INJ 40 MG/0.4 ML DISP.SYRIN SUBCUT SCH (09:00)
[2016-11-12] MEDS ORDERED: ONDANSETRON HCL INJ/PF 4 MG/2 ML SDV IV ONE (09:00)
--- NOTE | 2016-11-12 09:23 | PROGRESS NOTE E ---
Progress Note NAME: BREE FISHMAN : 1980 AGE: 35Y DATE: 11/12/2016 ROOM: 302 SUBJECTIVE: The patient is currently lying in bed. He states that he feels better than yesterday, but is complaining of back pain as well as some nausea. The patient states that what brought him to the hospital he had never experienced before. In discussing this with the patient, the patient stated that he had not been drinking the week prior to presentation; however, I informed him that he had a blood alcohol level around 200 upon presentation. The patient then conceded that he had indeed been drinking. I have communicated with the patient's social/case reviewer through the [facility] and the patient has once again refused inpatient substance abuse rehab and therefore extremely limited to what we can offer him, and patient does not voice any other concerns at this time. BRIEF HISTORY: The patient is a 35-year-old male who is well known to the hospitalist service. The patient came in through the emergency department on 11/10 due to alcohol intoxication, starvation, acidosis, and hypokalemia. The patient was hydrated. Electrolytes were still ongoingly being repleted and the patient has once again refused inpatient substance abuse rehab. The patient can be discharged as soon as his electrolytes are corrected and he feels comfortable with being discharged. REVIEW OF SYSTEMS: Rest of review of systems negative. MEDICATIONS: Medications have been reviewed. OBJECTIVE: GENERAL: The patient is a 35-year-old male who is awake, alert, and oriented to person, place, time, and situation. He is verbal, conversational, does not appear to be in any acute distress. VITAL SIGNS: Temperature is 98.3, pulse 94, respirations 20, blood pressure is 144/83, oxygen saturation is 96% on room air. SKIN: Warm and dry. No rash. She is not diaphoretic. HEENT: Pupils equal, round, and reactive to light and accommodation. Conjunctivae pink. No JVP. CARDIOVASCULAR SYSTEM: Heart is regular. There is no murmur or rub. CHEST: Clear, symmetrical, unlabored. ABDOMEN: Soft, nontender, nondistended. BACK: No CVA tenderness or sacral edema. EXTREMITIES: No clubbing, cyanosis, edema. PSYCHIATRIC: Appropriate affect, pleasant mood. DIAGNOSTICS: Lab values are as follows: Hematology obtained on 11/11/2016: WBCs are 6.5, hemoglobin is 10.5, hematocrit is 30.7, platelet count is 184,000. Chemistry obtained on 11/12/2016: Sodium is 134, potassium is 2.9, chloride is 98, carbon dioxide 28, BUN 3, creatinine is 0.72, glucose 71, calcium is 9.1, magnesium is 1.6. IMPRESSION AND PLAN: 1. STARVATION ACIDOSIS. Do not feel this was DKA given that the patient was hypokalemic and severely dehydrated. The patient freely admits to not consuming food the week before. Will continue to follow. 2. DIABETES MELLITUS TYPE 2. Will continue home medications. Patient is on a diabetic diet. 3. ELECTROLYTE DERANGEMENT SECONDARY TO NUMBER 1. Currently still replacing potassium. It is slowly improving. Will follow. 4. ACUTE ALCOHOL INTOXICATION. The patient has no evidence of DTs at this time, but will continue p.r.n. Ativan and follow. 5. ALCOHOL DEPENDENCY. Will transition to Oral B complex supplements and follow. The patient has refused inpatient treatment. 6. CHRONIC PANCREATITIS. No symptoms at this time. 7. HYPERLIPIDEMIA. Will continue home medication. 8. POSTTRAUMATIC STRESS DISORDER. Will continue the patient's home medication. 9. SEIZURE DISORDER. Will continue home medication. 10. TOBACCO DEPENDENCY. Will continue p.r.n. nicotine patch. 11. CHRONIC PAIN. The patient is currently not on opiates. DISPOSITION: The patient is a FULL CODE. Pending patient's symptomatology and diagnostic findings, the patient can be discharged as soon as electrolytes are corrected. Time spent on this followup including assessment, plan, physical examination, patient education, and resource alignment is 25 minutes. DICTATING PHYSICIAN: MARGARITO ALTMAN NP [id number] PHY#: [id number] ID: [id number] JOB#: [id number] ACCT: [id number] cc: >
[2016-11-12] MEDS ORDERED: LANSOPRAZOLE 30 MG TAB.RAP.DR PO ONE (09:30)
[2016-11-12] MEDS ORDERED: METOPROLOL TARTRATE 25 MG TABLET PO SCH (10:00)
[2016-11-12] MEDS ORDERED: LEVETIRACETAM 500 MG TABLET PO SCH (10:00)
[2016-11-12] MEDS ORDERED: SERTRALINE HCL 50 MG TABLET PO SCH (10:00)
[2016-11-12] MEDS ORDERED: VILAZODONE HYDROCHLORIDE 40 MG PO SCH (10:00)
[2016-11-12] MEDS ORDERED: SODIUM BICARBONATE 650 MG TABLET PO SCH (10:00)
[2016-11-12] MEDS ORDERED: INSULIN GLARGINE,HUM.REC.ANLOG 300 UNIT/3 ML INSULN.PEN SUBCUT SCH (10:00)
[2016-11-12] MEDS ORDERED: THIAMINE HCL 100 MG TABLET PO SCH (10:00)
[2016-11-12] MEDS ORDERED: (PENDING PHARMACY ID) (Sertraline Hcl [Zoloft] 200 MG) PO SCH (10:00)
[2016-11-12] MEDS ORDERED: AMLODIPINE BESYLATE 10 MG TABLET PO SCH (10:00)
[2016-11-12] MEDS ORDERED: FOLIC ACID 1 MG TABLET PO SCH (10:00)
[2016-11-12] MEDS ORDERED: MULTIVITAMIN WITH MINERALS PO SCH (10:00)
[2016-11-12] MEDS ORDERED: MULTIVIT-STRESS FORMULA/ZINC TABLET PO SCH (10:00)
[2016-11-12] MEDS ORDERED: GABAPENTIN 300 MG CAPSULE PO SCH (10:00)
[2016-11-12] MEDS ORDERED: DICLOFENAC SODIUM 50 MG TABLET.DR PO SCH (14:00)
[2016-11-12] MEDS ORDERED: GLIPIZIDE 5 MG TABLET PO SCH (16:00)
[2016-11-12] MEDS ORDERED: (PENDING PHARMACY ID) (Lamotrigine [Lamictal] 50 MG) PO SCH (22:00)
[2016-11-12] MEDS ORDERED: CARBAMAZEPINE 200 MG TABLET PO SCH (22:00)
[2016-11-12] MEDS ORDERED: QUETIAPINE FUMARATE 100 MG TABLET PO SCH (22:00)
[2016-11-12] MEDS ORDERED: LAMOTRIGINE 25 MG TAB.CHEW PO SCH (22:00)
[2016-11-12] MEDS ORDERED: (PENDING PHARMACY ID) (Quetiapine Fumarate [Seroquel] 300 MG) PO SCH (22:00)
[2016-11-13] MEDS ORDERED: LEVOTHYROXINE SODIUM 0.05 MG TABLET PO SCH (06:00)
[2016-11-13] MEDS ORDERED: LANSOPRAZOLE 30 MG TAB.RAP.DR PO SCH (06:00)
[2016-11-13 10:57] LABS: LAMOTRIGINE (LAMICTAL) None Detected ug/mL (2.0-20.0)
[2016-11-13 10:59] LABS: LEVETIRACETAM (KEPPRA) None Detected ug/mL (10.0-40.0)
--- NOTE | 2016-11-23 02:18 | DISCHARGE SUMMARY E ---
Discharge Summary NAME: BREE FISHMAN : 1980 AGE: 35Y ADMITTED: 11/10/2016 LEFT AMA: 11/12/2016 AGAINIST MEDICAL ADVICE SUMMARY: CODE STATUS: At the time the patient left is FULL CODE. WORKING DIAGNOSES: At the time the patient AMA includes: 1. Starvation acidosis. 2. Diabetes mellitus type 2. 3. Electrolyte derangement secondary to #1. 4. Acute alcohol intoxication. 5. Alcohol dependency. 6. Chronic pancreatitis. 7. Hyperlipidemia. 8. Post traumatic stress disorder. 9. Seizure disorder. 10. Tobacco dependency. 11. Chronic pain. PRIMARY CARE PROVIDER: [place]. HISTORY OF PRESENT ILLNESS: The patient is a 35-year-old male, who is well known to the Hospitalist Service. The patient came to the emergency department on 11/10/16 due to alcohol intoxication, starvation acidosis, and hypokalemia. Patient was hydrated. Electrolytes were still ongoing being replaced. The patient has refused inpatient substance abuse rehab, and the patient was insistent of leaving AMA in spite of his electrolyte derangement. The patient is aware of the risk associated with this; however, the patient stated that he had things he needed to do and is electing to proceed with AMA. TIME SPENT: Time spent on this AMA summary is 10 minutes. DICTATING PHYSICIAN: MARGARITO ALTMAN NP [id number] PHY#: [id number] ID: [id number] JOB#: [id number] ACCT: [id number] cc:GAMALIEL OATES M.D. MARGARITO ALTMAN NP > MTDD
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
== END 2016-11-12 10:25 | disposition left against medical advice (07) | DRG 638 ==
LOC: ER 17:37 → UNDOADMIN 23:12 → EH 23:12 → 3N 11-11 01:20
PROVIDERS: ADMIT Family Medicine; ATTEND Family Medicine
PROC: 02HV33Z Insertion of Infusion Device into Superior Vena Cava, Percutaneous Approach (ICD-10-PCS; principal; 2016-11-11)
PROC: B548ZZA Ultrasonography of Superior Vena Cava, Guidance (ICD-10-PCS; 2016-11-11)
DX: E13.10 Other specified diabetes mellitus with ketoacidosis without coma (principal); K86.1 Other chronic pancreatitis; F43.10 Post-traumatic stress disorder, unspecified; G89.29 Other chronic pain; F10.229 Alcohol dependence with intoxication, unspecified; E87.6 Hypokalemia; I87.2 Venous insufficiency (chronic) (peripheral); F41.1 Generalized anxiety disorder; F17.210 Nicotine dependence, cigarettes, uncomplicated; K21.9 Gastro-esophageal reflux disease without esophagitis; E86.0 Dehydration; E03.9 Hypothyroidism, unspecified; E78.5 Hyperlipidemia, unspecified; I10 Essential (primary) hypertension; I25.10 Atherosclerotic heart disease of native coronary artery without angina pectoris; Y90.7 Blood alcohol level of 200-239 mg/100 ml; I25.2 Old myocardial infarction; Z87.820 Personal history of traumatic brain injury; Z79.4 Long term (current) use of insulin; Z79.899 Other long term (current) drug therapy; Z96.641 Presence of right artificial hip joint; Z90.49 Acquired absence of other specified parts of digestive tract; Z91.19 Patient's noncompliance with other medical treatment and regimen; Z82.61 Family history of arthritis; Z83.3 Family history of diabetes mellitus; Z82.49 Family history of ischemic heart disease and other diseases of the circulatory system; Z80.9 Family history of malignant neoplasm, unspecified
CPT/HCPCS: 36415; 71010; 80048; 80053; 80156; 80175; 80177; 80307; 81001; 82140; 82803; 82962; 83690; 83735; 84443; 84484; 85025; 85610; 85730; 93005; 93010; 99291; C1751; J1170; J1642; J1650; J1815; J1885; J2060; J2405; J3411; J3475; J3480; J3490; J7030; J7120

== ENCOUNTER 2016-11-18 08:22 | Emergency (ER) | payer OTHER, MEDICARE ==
[2016-11-18] MEDS ORDERED: NORMAL SALINE 1000 ML 1,000 ML IV PRN (08:33)
[2016-11-18 09:33] LABS: ALANINE AMINOTRANSFERASE 101 U/L (21-72); ALBUMIN 4.5 g/dL (3.5-5.0); ALKALINE PHOSPHATASE 156 U/L (38-126); ASPARTATE AMINO TRANSFERASE 145 U/L (17-59); BILIRUBIN,DIRECT 0.4 mg/dL (0.0-0.4); BILIRUBIN,TOTAL 0.4 mg/dL (0.2-1.3); BLOOD UREA NITROGEN 6 mg/dL (7-20); CALCIUM 9.1 mg/dL (8.4-10.2); CARBON DIOXIDE 23 mmol/L (22-30); CHLORIDE 105 mmol/L (98-107); CREATININE RESULT 0.79 mg/dL (0.52-1.25); GLUCOSE 176 mg/dL (75-110); SODIUM 149.5 mmol/L (137-145)
[2016-11-18 09:38] LABS: ABSOLUTE LYMPHOCYTES (AUTO) 2.2 10^3/uL (0.5-4.7); ABSOLUTE MONOCYTES (AUTO) 0.5 10^3/uL (0.1-1.4); ABSOLUTE NEUT (AUTO) 1.1 10^3/uL (1.7-8.2); BASOPHILS % (AUTO) 0.3 % (0-2); EOSINOPHILS % (AUTO) 0.9 % (0-6); HEMOGLOBIN 13.3 g/dL (13.5-17.0); HGB HCT DIFFERENCE -1.1; LYMPHOCYTES % (AUTO) 57.4 % (13-45); MEAN CORPUSCULAR HEMOGLOBIN 28.5 pg (27.0-33.4); MEAN CORPUSCULAR HGB CONC 32.5 g/dL (32.0-36.0); MONOCYTES % (AUTO) 13.8 % (3-13); RED BLOOD COUNT 4.68 10^6/uL (4.35-5.55); RED CELL DISTRIBUTION WIDTH 17.8 % (11.5-14.0); SEGMENTED NEUTROPHILS % (AUTO) 27.6 % (42-78); VENOUS BLOOD HCO3 20.7 mmol/L (20-32); VENOUS BLOOD PCO2 33.4 mmHg (35-63); VENOUS BLOOD PH 7.41 (7.30-7.42); WHITE BLOOD COUNT 3.9 10^3/uL (4.0-10.5)
[2016-11-18 09:40] LABS: MEAN CORPUSCULAR VOLUME 88 fl (80-97)
[2016-11-18] MEDS ORDERED: KETOROLAC TROMETHAMINE INJ/PF 30 MG/1 ML SDV IV ONE (09:44)
[2016-11-18 10:16] LABS: ANION GAP 22 (5-19)
--- NOTE | 2016-11-18 10:25 | RADIOLOGY REPORT (SQ) ---
EXAM DESCRIPTION: CHEST PA/LAT COMPLETED DATE/TIME: 11/18/2016 9:55 am REASON FOR STUDY: chest wall pain COMPARISON: 03/30/2016 EXAM PARAMETERS: NUMBER OF VIEWS: two views TECHNIQUE: Digital Frontal and Lateral radiographic views of the chest acquired. RADIATION DOSE: NA LIMITATIONS: none FINDINGS: LUNGS AND PLEURA: No opacities, masses or pneumothorax. No pleural effusion. MEDIASTINUM AND HILAR STRUCTURES: No masses or contour abnormalities. HEART AND VASCULAR STRUCTURES: Heart normal size. No evidence for failure. BONES: No acute findings. HARDWARE: None in the chest. OTHER: No other significant finding. IMPRESSION: NO SIGNIFICANT RADIOGRAPHIC FINDING IN THE CHEST. TECHNICAL DOCUMENTATION: JOB ID: [id number] [employer]- All Rights Reserved
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
[2016-11-18 10:57] VITALS: BP 149/105
--- NOTE | 2016-11-18 17:04 | EKG REPORT ---
SEVERITY:- OTHERWISE NORMAL ECG - SINUS TACHYCARDIA : Confirmed by: Marycruz Monsalve MD 18-Nov-2016 17:03:18
[2016-11-18] MEDS ORDERED: NORMAL SALINE 1000 ML 1,000 ML with POTASSIUM CHLORIDE 20 MEQ, MAGNESIUM SULFATE 8 MEQ,... IV SCH ×5 (18:00)
== END 2016-11-18 10:59 | disposition home or self-care (01) ==
LOC: ER 08:22
DX: F10.229 Alcohol dependence with intoxication, unspecified (principal); R07.89 Other chest pain
CPT/HCPCS: 93005; 99284; 96361; 96374; 36415; 80307; 85025; 80053; 84484; 82803; 71020; 93010; J1885; J7030

== ENCOUNTER 2016-11-19 08:31 | Emergency (ER) | payer OTHER, MEDICARE ==
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
[2016-11-19] MEDS ORDERED: ONDANSETRON 4 MG TAB.RAPDIS PO ONE ×2 (09:24→13:48)
[2016-11-19] MEDS ORDERED: ASPIRIN 81 MG TABLET, CHEWABLE PO ONE (09:24)
[2016-11-19] MEDS ORDERED: DEXTROSE 50%-WATER 25 GM/50 ML DISP.SYRIN IV ONE (10:24)
[2016-11-19 10:40] LABS: ABSOLUTE BASOPHILS # (AUTO) 0.1 10^3/uL (0.0-0.2); ABSOLUTE LYMPHOCYTES (AUTO) 3.7 10^3/uL (0.5-4.7); ABSOLUTE MONOCYTES (AUTO) 0.8 10^3/uL (0.1-1.4); ABSOLUTE NEUT (AUTO) 4.1 10^3/uL (1.7-8.2); BASOPHILS % (AUTO) 0.8 % (0-2); EOSINOPHILS % (AUTO) 0.1 % (0-6); HEMATOCRIT 42.7 % (37.9-51.0); HEMOGLOBIN 13.7 g/dL (13.5-17.0); HGB HCT DIFFERENCE -1.6; LYMPHOCYTES % (AUTO) 42.6 % (13-45); MEAN CORPUSCULAR HEMOGLOBIN 28.1 pg (27.0-33.4); MEAN CORPUSCULAR HGB CONC 32.2 g/dL (32.0-36.0); MEAN CORPUSCULAR VOLUME 87 fl (80-97); MONOCYTES % (AUTO) 8.9 % (3-13); RED BLOOD COUNT 4.89 10^6/uL (4.35-5.55); RED CELL DISTRIBUTION WIDTH 17.7 % (11.5-14.0); SEGMENTED NEUTROPHILS % (AUTO) 47.6 % (42-78)
[2016-11-19 10:42] LABS: PROTHROMBIN TIME 12.6 SEC (11.4-15.4)
[2016-11-19 10:46] LABS: WHITE BLOOD COUNT 8.7 10^3/uL (4.0-10.5)
--- NOTE | 2016-11-19 10:46 | EKG REPORT ---
SEVERITY:- ABNORMAL ECG - SINUS TACHYCARDIA NONSPECIFIC T ABNORMALITIES, LATERAL LEADS : Confirmed by: Marycruz Monsalve MD 19-Nov-2016 10:45:32
--- NOTE | 2016-11-19 10:46 | RADIOLOGY REPORT (SQ) ---
EXAM DESCRIPTION: CHEST SINGLE VIEW COMPLETED DATE/TIME: 11/19/2016 10:37 am REASON FOR STUDY: chest pain COMPARISON: 11/18/2016 EXAM PARAMETERS: NUMBER OF VIEWS: One view. TECHNIQUE: Single frontal radiographic view of the chest acquired. RADIATION DOSE: NA LIMITATIONS: None. FINDINGS: LUNGS AND PLEURA: No opacities, masses or pneumothorax. No pleural effusion. MEDIASTINUM AND HILAR STRUCTURES: No masses. Contour normal. HEART AND VASCULAR STRUCTURES: Heart normal in size. Normal vasculature. BONES: No acute findings. HARDWARE: None in the chest. OTHER: No other significant finding. IMPRESSION: NO ACUTE RADIOGRAPHIC FINDING IN THE CHEST. TECHNICAL DOCUMENTATION: JOB ID: [id number]
[2016-11-19 11:01] LABS: ALANINE AMINOTRANSFERASE 114 U/L (21-72); ALBUMIN 4.6 g/dL (3.5-5.0); ALKALINE PHOSPHATASE 151 U/L (38-126); ASPARTATE AMINO TRANSFERASE 165 U/L (17-59); BILIRUBIN,DIRECT 0.3 mg/dL (0.0-0.4); BILIRUBIN,TOTAL 0.3 mg/dL (0.2-1.3); BLOOD UREA NITROGEN 6 mg/dL (7-20); CALCIUM 8.9 mg/dL (8.4-10.2); CHLORIDE 104 mmol/L (98-107); CREATINE KINASE 118 U/L (55-170); CREATININE RESULT 0.71 mg/dL (0.52-1.25); GLUCOSE 58 mg/dL (75-110); LIPASE 25.6 U/L (23-300); MAGNESIUM 1.9 mg/dL (1.6-2.3); POTASSIUM 3.8 mmol/L (3.6-5.0); TOTAL PROTEIN 7.5 g/dL (6.3-8.2)
[2016-11-19 11:08] LABS: CARBON DIOXIDE 20 mmol/L (22-30); SODIUM 149.3 mmol/L (137-145)
[2016-11-19 11:09] LABS: ANION GAP 25 (5-19)
[2016-11-19 11:11] LABS: ALCOHOL 358 mg/dL (NONE DETECTED)
[2016-11-19 11:19] LABS: TROPONIN I < 0.012 ng/mL
[2016-11-19 13:41] LABS: BLOOD UREA NITROGEN 7 mg/dL (7-20); CARBON DIOXIDE 13 mmol/L (22-30); CREATINE KINASE 134 U/L (55-170); CREATININE RESULT 0.69 mg/dL (0.52-1.25); GLUCOSE 241 mg/dL (75-110)
[2016-11-19 13:53] LABS: CREATINE KINASE MB 0.51 ng/mL (<4.55)
[2016-11-19 13:56] LABS: CHLORIDE 104 mmol/L (98-107); POTASSIUM 3.8 mmol/L (3.6-5.0); SODIUM 145.6 mmol/L (137-145)
[2016-11-19 14:01] LABS: ANION GAP 29 (5-19); TROPONIN I < 0.012 ng/mL
[2016-11-19] MEDS ORDERED: LORAZEPAM 1 MG TABLET PO ONE (15:13)
[2016-11-19] MEDS ORDERED: HALOPERIDOL 5 MG TABLET PO ONE ×2 (15:42→15:46)
[2016-11-19] MEDS ORDERED: BENZTROPINE MESYLATE 1 MG TABLET PO ONE (15:43)
[2016-11-19] MEDS ORDERED: HALOPERIDOL LACTATE INJ 5 MG/1 ML VIAL IM ONE (16:04)
[2016-11-19] MEDS ORDERED: LORAZEPAM INJ 2 MG/1 ML VIAL IM ONE (16:04)
[2016-11-19] MEDS ORDERED: BENZTROPINE MESYLATE INJ 2 MG/2 ML AMPULE IM PRN (16:10)
[2016-11-20 12:09] VITALS: BP 128/75
== END 2016-11-19 16:45 | disposition home or self-care (01) ==
LOC: ER 08:31
DX: R07.9 Chest pain, unspecified (principal); F10.129 Alcohol abuse with intoxication, unspecified; E11.649 Type 2 diabetes mellitus with hypoglycemia without coma; F41.9 Anxiety disorder, unspecified; R00.0 Tachycardia, unspecified; R94.31 Abnormal electrocardiogram [ECG] [EKG]; I25.10 Atherosclerotic heart disease of native coronary artery without angina pectoris; I25.2 Old myocardial infarction; I10 Essential (primary) hypertension
CPT/HCPCS: 93005; 99291; 96372; 96374; 36415; 82553; 82962; 80307; 82550; 83690; 83735; 85025; 85610; 80048; 80053; 84484; 71010; 93010; J0515; J3490; S0119; J1630; J2060